=== PATIENT | female | born 1935 | race Caucasian/White ===

== ENCOUNTER 2018-03-01 00:19 | Outpatient (CLI) | payer MEDICARE, MEDICAID, SELFPAY ==
--- NOTE | 2018-03-01 12:00 | DI.CT_ITS ---
SYMPTOMS/DIAGNOSIS: LUNG NODULE, LEFT LOWER, R91.[address]: Comparison is made with CT of the abdomen and pelvis dated August,, which showed an 8 mm nodule in the left lower lobe. Images were performed from the lower neck through the level of the adrenals after IV contrast. There has been no change in two adjacent nodules at the left lateral lower lobe. Together, the measurement is 8 mm. There are other subpleural areas of nodularity, greatest in the upper lobes, which have a somewhat symmetric appearance and likely represent chronic scarring. There is significant underlying central lobular emphysema, greatest in the lung apices. No infiltrate, pleural or pericardial effusion is seen. The heart size is normal. Atherosclerotic changes are seen in the thoracic aorta. Coronary artery calcifications are seen. There is stable post cholecystectomy biliary dilatation. A few splenic granulomas and liver cysts are noted. IMPRESSION: Stable left lower lobe nodules. Significant central lobular emphysema, as well as subpleural scarring, is seen. Follow-up exam could be considered in one year.
[2018-03-01 12:47] LABS: CREATININE 0.69 mg/dL (0.55-1.02)
[2018-03-01] MEDS: Omnipaque 350 MG/ML 100 ML BTL IJ (13:10)
== END 2018-03-01 00:39 ==
PROVIDERS: PCP Nurse Practitioner Family; Visit Provider Nurse Practitioner Family
DX: R91.8 Other nonspecific abnormal finding of lung field (principal); J98.4 Other disorders of lung; J43.9 Emphysema, unspecified; Z13.89 Encounter for screening for other disorder
CPT/HCPCS: 36415; 71260; 82565; J3490

== ENCOUNTER 2018-04-22 09:20 | Emergency (ER) | payer MEDICARE, MEDICAID, SELFPAY ==
[2018-04-22 09:26] VITALS: BP 110/72; PULSE 84; RESP 16; TEMP 36.3; O2SAT 95
--- NOTE | 2018-04-22 09:33 | ED.GENADUL_ITS ---
Discharge Plan Disposition Patient Disposition: HOME Condition: Improving Discharge Details Chief Complaint: Urinary Clinical Impression: Acute cystitis Primary Care Provider: Rosi Russo ED Provider: Ady De Jesus Home Meds and New Rx's Prescriptions: New cephalexin 500 mg capsule 500 mg PO TID 7 Days Qty: 21 RF: 0 Continued incontinence pad, liner, disp [Poise Pads] 1 EACH pad 1 ea Miscellaneous PRN RF: 0 levothyroxine [Synthroid] 100 MCG tablet 100 mcg PO DAILY RF: 0 lorazepam 1 MG tablet 1 mg PO TID RF: 0 Discharge Instructions Instructions: Urinary Tract Infection in Women (ED) Additional Instructions: Home to rest today. Take antibiotics as prescribed for the entire course. Small, frequent sips of fluids to maintain hydration. Continue your regular medications. Follow-up with Rosi Russo if not improved in 5 days time. Return for any acute concern Medical Decision Making 82-year-old female presents from home with days of increased frequency and burning with urination. She is pleasant, well-appearing, no acute distress. Urinalysis consistent with acute cystitis including positive nitrites. I will treat her with a course of Keflex. She is stable for outpatient management and understands return and follow-up precautions. HPI General Mode of arrival: ambulatory . Date/Time Provider Initiated Documentation: 04/22/18 09:21 . Limitations to Documentation: no limitations . Information obtained by: patient . History of Present Illness 82 year old F presents to the emergency department with the chief complaint of Dysuria over days time, described as similar to prior episodes, Quality is described as burning, and is localized to the pelvis. Patient reports no radiation. Patient started experiencing this day(s) and it has been intermittent. No relieving factors improve symptom(s), No exacerbating factors reported . Patient did receive the following treatments prior to arrival, none Related Data Home Medications Medication Instructions Recorded Confirmed levothyroxine [Synthroid] 100 mcg PO DAILY 12/26/12 04/22/18 lorazepam 1 mg PO TID 12/26/12 04/22/18 incontinence pad, liner, disp ea 07/08/16 09/10/17 [Poise Pads] cephalexin 500 mg PO TID 7 Days #21 cap 04/22/18 Previous Rx's Medication Instructions Recorded cephalexin 500 mg PO TID 7 Days #21 cap 04/22/18 Allergies Allergy/AdvReac Type Severity Reaction Status Date / Time azithromycin Allergy Intermediate gets sick Unverified 09/10/17 23:35 meperidine HCl [From Demerol] AdvReac Severe made me Unverified 09/10/17 23:35 very, very sick wheat AdvReac Severe Diarrhea Unverified 09/10/17 23:35 Penicillins AdvReac Mild heart Unverified 09/10/17 23:35 races,rash WHEAT BREAD Allergy Intermediate Uncoded 09/10/17 23:35 General Stated Complaint: Urinary ENRIQUE: 3 Review of Systems Review of Systems 6 systems reviewed and otherwise -. Recovering from recent URI. [facility] Surgical History Cholecystectomy Colonoscopy - [facility] (03/20/16) Family History Father No problems noted. Other Colon cancer Social History Smoking/Tobacco Use Status: Current every day Exam Narrative Exam Narrative: GEN: awake, alert, oriented 3. Pleasant, well groomed, interacti ve. HEAD: Normocephalic, atraumatic ENT: Mucous membranes moist, oropharynx unremarkable, External ear exam unremarkable, and membranes clear bilaterally after hearing aid removed. Partially edentulous EYES: PERRL, EOMI NECK: Full ROM, no JULIO CESAR, no menigismus CHEST/RESP: Nontender, clear to auscultation bilateral, no wheeze/rhonchi/rales CARDIOVASCULAR: RRR, no murmur, rub everett. 2+ Rad pulse bilateral ABDOMEN: Soft, nontender, no mass. +Bowel sounds EXT: Full ROM, no edema, no rash Neuro: Grossly normal neurologic exam, conversant, interactive. Psych: Speech fluent, thoughts congruent, affect normal
[2018-04-22 09:42] LABS: Bilirubin Negative (Negative); Blood Trace-intact (Negative); Clarity Cloudy; Glucose Negative (Negative); Ketones Negative (Negative); Leukocyte Esterase Moderate (Negative); Nitrite Positive (Negative); Specific Gravity 1.015 (1.005-1.025); Urobilinogen 0.2 EU/dL (Up TO 0.2)
[2018-04-22 09:50] LABS: Bacteria Many HPF (Negative); C & S Indicated? Yes; WBC >50 HPF (0-5)
== END 2018-04-22 10:20 | disposition home or self-care (01) ==
PROVIDERS: Emergency Provider Emergency Medicine; PCP Nurse Practitioner Family
DX: N30.00 Acute cystitis without hematuria (principal); B96.20 Unspecified Escherichia coli [E. coli] as the cause of diseases classified elsewhere
CPT/HCPCS: 87077; 99283; 81003; 81015; 87086; 87186

== ENCOUNTER 2018-05-02 00:59 | Outpatient (CLI) | payer MEDICARE, MEDICAID, SELFPAY ==
--- NOTE | 2018-05-02 09:43 | DI.US_ITS ---
SYMPTOM/DIAGNOSIS: AAA, I71.4 ABDOMINAL AORTIC ULTRASOUND: Sonographic evaluation of the abdominal aorta was noted. There is a distal abdominal aortic aneurysm measuring 4.1 cm AP x 4 cm transverse. The right iliac artery measures 1.5 x 1.8 cm. The left iliac artery measures 1.5 x 1.6 cm. IMPRESSION: Distal abdominal aortic aneurysm measuring 4.1 cm in largest AP diameter.
== END 2018-05-02 01:19 ==
PROVIDERS: PCP Nurse Practitioner Family; Visit Provider Nurse Practitioner Family
DX: I71.4 Abdominal aortic aneurysm, without rupture (principal)
CPT/HCPCS: 76775

== ENCOUNTER 2018-05-09 13:32 | Outpatient (REF) | payer MEDICARE, MEDICAID, SELFPAY ==
[2018-05-09 19:30] LABS: Absolute Basophil Count 0.02 k/cumm (0.0-0.2); Absolute Eosinophil Count 0.08 k/cumm (0.0-0.7); Absolute Lymphocyte Count 0.56 k/cumm (1.2-3.4); Absolute Neutrophil Count 2.63 k/cumm (1.2-6.7); Basophils % 0.5; Eosinophils % 2.1; HCT 40.9 % (36.0-46.0); HGB 13.6 g/dL (12.0-15.5); Lymphocytes % 14.4; Mean Corp. HGB Concentration 33.3 g/dL (32.0-36.0); Mean Corpuscular Hemoglobin 30.4 pg (27.0-33.0); Mean Corpuscular Volume 91.3 fL (80-95); Mean Platelet Volume 10.6 fL (8.0-11.0); Monocytes % 15.4; Neutrophils % 67.6; Platelet Count 129 x1000/uL (130-400); RBC 4.48 m/cumm (4.00-5.20); RBC Distribution Width 14.7 % (11.7-14.6); White Blood Cell Count 3.89 k/cumm (4.4-10.8)
[2018-05-09 20:07] LABS: ALT 28 U/L (12-78); AST 30 U/L (15-37); Albumin 3.3 g/dL (3.4-5.0); Alkaline Phosphatase 99 U/L (46-116); Anion Gap 4.1 mmol/L (3-11); BUN 14 mg/dL (7-18); Bilirubin, Total 0.4 mg/dL (0.2-1.0); C-Reactive Protein 0.48 mg/dL (0.0-0.3); CO2 33.9 mmol/L (21.0-32.0); CREATININE 0.79 mg/dL (0.55-1.02); Calcium 8.6 mg/dL (8.5-10.1); Chloride 105 mmol/L (98-107); Glucose 113 mg/dL (70-100); Sodium 143 mmol/L (136-145); TSH (W/Ref FT4) 0.84 uIU/mL (0.358-3.74); Total Protein 6.1 g/dL (6.4-8.2)
[2018-05-09 20:57] LABS: ESR 8 MM/HR (0-30)
[2018-05-11 11:40] LABS: HIV-1/2 Ag & Ab Screen Negative (NEGAT); Hepatitis C Ab w Rflx HCV PCR Negative (NEGAT)
== END 2018-05-09 13:52 ==
LOC: NCHCN 13:32
PROVIDERS: PCP Nurse Practitioner Family; Visit Provider Nurse Practitioner Family
DX: R63.4 Abnormal weight loss (principal); Z11.59 Encounter for screening for other viral diseases; Z11.4 Encounter for screening for human immunodeficiency virus [HIV]; E03.9 Hypothyroidism, unspecified
CPT/HCPCS: 80053; 85652; 86803; 87389; 84443; 85025; 86140

== ENCOUNTER 2018-05-13 00:37 | Outpatient (CLI) | payer MEDICARE, MEDICAID, SELFPAY ==
--- NOTE | 2018-05-13 10:05 | DI.RAD_ITS ---
SYMPTOMS/DIAGNOSIS: NECK PAIN, S/P FALL, M54.2 CERVICAL SPINE: Six views were obtained. The prevertebral soft tissues appear intact. The intervertebral disc spaces appear fairly well maintained except for slight narrowing at C 5 - 6. Mild hypertrophic degenerative changes are noted. There is possible left sided neural foraminal narrowing at C 4 - 5. Right sided neural foramina appear well maintained as visualized. CONCLUSION: Degenerative changes of the cervical spine. No evidence of acute injury.
== END 2018-05-13 00:57 ==
PROVIDERS: PCP Nurse Practitioner Family; Visit Provider Nurse Practitioner Family
DX: M54.2 Cervicalgia (principal); M47.812 Spondylosis without myelopathy or radiculopathy, cervical region
CPT/HCPCS: 72050

== ENCOUNTER 2018-06-18 09:19 | Outpatient (CLI) | payer MEDICARE, MEDICAID, SELFPAY ==
[2018-06-18 11:30] LABS: Abs Immature Grans 0.01 k/cumm (0.0-0.09); Absolute Basophil Count 0.01 k/cumm (0.0-0.2); Absolute Lymphocyte Count 0.88 k/cumm (1.2-3.4); Absolute Monocyte Count 0.68 k/cumm (0.11-0.7); Absolute Neutrophil Count 3.49 k/cumm (1.2-6.7); Basophils % 0.2; Eosinophils % 1.9; HCT 42.2 % (36.0-46.0); HGB 14.3 g/dL (12.0-15.5); Immature Grans % 0.2; Mean Corp. HGB Concentration 33.9 g/dL (32.0-36.0); Mean Corpuscular Hemoglobin 31.4 pg (27.0-33.0); Mean Corpuscular Volume 92.5 fL (80-95); Mean Platelet Volume 10.1 fL (8.0-11.0); Monocytes % 13.2; Neutrophils % 67.5; Platelet Count 140 x1000/uL (130-400); RBC 4.56 m/cumm (4.00-5.20); RBC Distribution Width 14.7 % (11.7-14.6); White Blood Cell Count 5.17 k/cumm (4.4-10.8)
== END 2018-06-18 09:39 ==
PROVIDERS: Family Medicine; PCP Nurse Practitioner Family; Visit Provider Nurse Practitioner Family
DX: R23.8 Other skin changes (principal)
CPT/HCPCS: 36415; 85025

== ENCOUNTER 2018-07-06 11:56 | Outpatient (CLI) | payer MEDICARE, MEDICAID, SELFPAY ==
[2018-07-06 11:59] VITALS: PULSE 72; RESP 20; TEMP 36.7; O2SAT 96
--- NOTE | 2018-07-06 12:43 | DI.RAD_ITS ---
SYMPTOMS/DIAGNOSIS: SACROILIAC JOINT DYSFUNCTION PAIN CLINIC SACROILIAC: Fluoroscopy Time: 49.7 sec, 8.60 mGy. Images from the Pain Clinic demonstrate right and left sacroiliac joint needle placement in conjunction with injections carried out by Dr. Hamilton. Please see the procedure report for further information.
--- NOTE | 2018-07-06 12:53 | PDOC.PAIN_ITS ---
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 COMMENTS: He will need to bilateral sacroiliac joint dysfunction. Good results from injections last year. Lasted approximately 1 year. Patient was interviewed and the medical record reviewed. There were no medical, pharmacologic, radiographic or other structural contraindications to attempting fluoroscopically guided intra-articular SI joint injection. Risks and expected side effects as well as potential benefit of the procedure were reviewed and voiced concerns addressed. The printed consent form was signed and witnessed. Standard time-out procedure was performed. Patient was placed in the prone position on the fluoroscopy table and automated blood pressure cuff and pulse oximeter applied. The skin entry point for approaching {bilateral} SI joints was identified under the most advantageous fluoroscopic view and marked. Following thorough Chlorhexadine preparation of the skin and draping and 1% lidocaine infiltration of the skin entry point and subcutaneous tissues, a 22 gauge spinal needle was placed under fluoroscopic guidance into {bilateral} SI joints was identified under the most advantageous fluoroscopic view and marked. Following thorough Chlorhexadine preparation of the skin and draping and 1% lidocaine infiltration of the skin entry point and subcutaneous tissues, a 22 gauge spinal needle was placed under fluoroscopic guidance into { bilateral: } SI joint. Intra-articular placement was confirmed by a clear arthrogram resulting from the injection of 0.25ml Omnipaque 240, 1ml 0.5% bupivacaine, and half ml (40mg) of 80mg concentration Depomedrol were injected intra-articularily with an initial reproduction of a significant component of the usual pain. Vital signs were stable throughout the procedure and were as recorded in the docflowsheet by the nursing staff. If given, dosages of intravenous drugs for anxiolysis and analgesia were documented in MAR. Follow up plans and appointments were discussed with the patient. Post procedure instruction was given as documented in nursing documentation and having met discharge criteria, and was discharged from the [facility]. COMMENTS: Pain went from 8-0. She will follow-up as needed. CC: Rosi Russo
[2018-07-06 12:57] VITALS: BP 131/80; PULSE 78; RESP 19; O2SAT 96
[2018-07-06] MEDS: Omnipaque 240 MG/ML 50 ML BTL IJ (13:00)
[2018-07-06] MEDS: Bupivacaine 0.5% Pres-Free 10 ML VIAL IJ (13:00)
[2018-07-06] MEDS: methylPREDNISolone ACETATE 80 MG/ML VIAL IJ (13:01)
== END 2018-07-06 12:16 ==
PROVIDERS: PCP Nurse Practitioner Family; Visit Provider Anesthesiology Pain Medicine
DX: M53.3 Sacrococcygeal disorders, not elsewhere classified (principal)
CPT/HCPCS: 27096 ×2; 72200; J1040; Q9967

== ENCOUNTER 2018-07-13 15:57 | Outpatient (REF) | payer MEDICARE, MEDICAID, SELFPAY ==
[2018-07-14 10:25] LABS: TSH (W/Ref FT4) 0.89 uIU/mL (0.358-3.74)
== END 2018-07-13 16:17 ==
LOC: NCHCN 15:57
PROVIDERS: PCP Nurse Practitioner Family; Visit Provider Nurse Practitioner Family
DX: E03.9 Hypothyroidism, unspecified (principal)
CPT/HCPCS: 84443

== ENCOUNTER 2018-08-16 09:13 | Emergency (ER) | payer MEDICARE, MEDICAID, SELFPAY ==
--- NOTE | 2018-08-16 09:16 | W.ED.GENAD ---
Discharge Plan Disposition Patient Disposition: HOME Condition: Fair Discharge Details Chief Complaint: Urinary Clinical Impression: UTI (urinary tract infection) Primary Care Provider: Oj Blakely ED Provider: Arlene Turner Home Meds and New Rx's Prescriptions: New cephalexin [Keflex] 500 mg capsule 500 mg PO BID Qty: 10 RF: 0 Continued clobetasol 0.05 % cream 1 applic TP DAILY PRNRF: 0 betamethasone dipropionate 0.05 % cream 1 applic TP BID RF: 0 Restasis MultiDose 0.05 % drops 1 drp OP Q12H RF: 0 hydrocortisone 2.5 % cream 1 applic TP BID PRNRF: 0 Narcan 4 mg/actuation spray,non-aerosol 1 spray NUSRAT ONCE PRNRF: 0 cetirizine [All Day Allergy (cetirizine)] 10 mg tablet 20 mg PO DAILY RF: 0 atorvastatin 10 mg tablet 10 mg PO QHS RF: 0 Poise Pads 1 EACH pad 1 ea Miscellaneous PRN RF: 0 levothyroxine [Synthroid] 100 MCG tablet 100 mcg PO DAILY RF: 0 lorazepam 1 MG tablet 1 mg PO TID RF: 0 Discharge Instructions Instructions: Urinary Tract Infection in Women (ED) Additional Instructions: Encourage hydration. Please take antibiotics as prescribed. Even if symptoms improve, please take the entire course. Please follow-up with primary care to discuss recurrent urinary tract infections. If you develop new or worsening symptoms please seek care urgently once again. Referrals: Oj Blakely, CENTRAL OFFICE INSPECTOR [Primary Care Provider] - Discharge Data Discharge Date/Time-TO BE ENTERED AT DEPARTURE: 08/16/18 10:06 Medical Decision Making Patient is a 82-year-old female presenting today with concern for urinary tract infection. She reports symptoms began approximate 4 days ago. Is endorsing dysuria, increased frequency and urgency. States that she has had 2 urinary tract infections the last calendar year. Was last treated in April. Reviewed culture, her previous urine was resistant to Bactrim. She tolerated Keflex well. Patient is allergic to azithromycin and penicillins. Patient appears nontoxic, no CVA tenderness. No abdominal pain. Patient is afebrile. Urinalysis consistent for urinary tract infection. Plan to treat with Keflex. Discussed new/worsening symptoms when to seek care urgently once again. She will discuss her recurrent urinary tract infections further with her primary care. She is given return precautions. All of her questions and concerns were addressed and she is in agreement this plan. HPI General Mode of arrival: ambulatory. Date/Time Provider Initiated Documentation: 08/16/18 09:16. Limitations to Documentation: no limitations. Information obtained by: patient and RN notes reviewed. History of Present Illness 82 year old F presents to the emergency department with the chief complaint of dysurea, described as moderate, Quality is described as burning (with urination), and is localized to the abdomen. Patient reports no radiation. Patient started experiencing this day(s) (4) and it has been constant. No relieving factors improve symptom(s), No exacerbating factors reported . Patient notes no other symptoms.; denies chest pain, fever/chills, headaches, loss of appetite, nausea/vomiting, rash, shortness of breath and weakness. Patient did receive the following treatments prior to arrival, none Related Data Home Medications Medication Instructions Recorded Confirmed levothyroxine [Synthroid] 100 mcg PO DAILY 12/26/12 08/16/18 lorazepam 1 mg PO TID 12/26/12 08/16/18 Poise Pads ea 07/08/16 05/31/18 atorvastatin 10 mg tablet 10 mg PO QHS 05/31/18 08/16/18 betamethasone dipropionate 0.05 % 1 applic TP BID 05/31/18 08/16/18 topical cream cetirizine 10 mg tablet 20 mg PO DAILY tab 05/31/18 08/16/18 clobetasol 0.05 % topical cream 1 applic TP DAILY PRN 05/31/18 08/16/18 cyclosporine 0.05 % eye drops 1 drp OP Q12H 05/31/18 08/16/18 hydrocortisone 2.5 % topical cream 1 applic TP BID PRN 05/31/18 08/16/18 naloxone 4 mg/actuation nasal spray 1 spray NUSRAT ONCE PRN 05/31/18 07/06/18 cephalexin [Keflex] 500 mg PO BID #10 cap 08/16/18 Previous Rx's Medication Instructions Recorded cephalexin [Keflex] 500 mg PO BID #10 cap 08/16/18 Allergies Allergy/AdvReac Type Severity Reaction Status Date / Time meperidine HCl [From Demerol] AdvReac Severe made me Unverified 08/16/18 09:27 very, very sick wheat AdvReac Severe Diarrhea Unverified 08/16/18 09:27 azithromycin AdvReac Intermediate gets sick Unverified 08/16/18 09:27 Penicillins AdvReac Mild heart Unverified 08/16/18 09:27 races,rash WHEAT BREAD Allergy Intermediate Uncoded 08/16/18 09:27 General ENRIQUE: 3 Review of Systems Constitutional Reports as per HPI, Denies chills, Denies fever(s) and Denies poor appetite Cardiovascular Denies chest pain Respiratory Denies cough Gastrointestinal Denies abdominal pain, Denies change in bowel habits, Denies nausea and Denies vomiting Genitourinary Reports as per HPI Musculoskeletal Reports as per HPI and Denies back pain Integumentary/Breasts Reports as per HPI and Denies rash [facility] Medical History AAA (abdominal aortic aneurysm) (Acute) Abnormal mammogram of right breast (Acute) Adenomatous colon polyp (Acute) Celiac disease (Acute) Diverticulosis (Acute) Dizziness (Acute) Elevated LFTs (Acute) Knee pain, left (Acute) Onychomycosis (Acute) Right bundle branch block (Acute) Skin rash (Acute) Spinal stenosis (Acute) Tobacco use (Acute) Trigger thumb, left thumb (Acute) Uterine fibroid (Acute) Weight loss, abnormal (Acute) Allergic rhinitis (Chronic) Anxiety (Chronic) CAD (coronary artery disease) (Chronic) Chronic leukopenia (Chronic) Hearing deficit (Chronic) Hiatal hernia (Chronic) Hypothyroid (Chronic) Low back pain (Chronic) Lung nodule (Chronic) Lupus erythematosus (Chronic) Neck pain (Chronic) Osteoporosis (Chronic) Panic disorder (Chronic) Syncope (Chronic) Urinary incontinence (Chronic) Vitamin D deficiency (Chronic) Surgical History Cholecystectomy Colonoscopy - [facility] (03/20/16) Social History Smoking/Tobacco Use Status: Current every day Tobacco Type: cigarettes Alcohol Intake: never Drug use: Never Do you feel safe at home: Yes Do you feel safe in your relationship?: Yes Exam Const General: cooperative, healthy appearing, comfortable, no acute distress, well developed and well groomed Nutritional Appearance: well nourished and thin Orientation: alert and awake Resp Effort & Inspection: normal respiratory effort and no respiratory distress Auscultation: clear to auscultation bilaterally, no rales, no rhonchi and no wheezes Cardio Rate: regular rate Rhythm: regular rhythm Heart Sounds: S1 normal and S2 normal GI Inspection: normal to inspection Palpation: soft, no hepatosplenomegaly, aortic enlargement (known aortic aneurysm), not firm, no guarding, not rigid and nontender Back/Spine/Pelvis Back: no CVA tenderness Skin General skin exam: no rashes or lesions noted Trauma: no lacerations or abrasions Neuro General: alert and awake Cognition: normal cognition Speech: speech normal Gait: normal gait Psych Appearance: grossly normal and well kempt Mental Status: mental status grossly normal Speech and Movement: speech and movement normal
--- NOTE | 2018-08-16 09:23 | NUR.NOTE ---
pt believes that she has a UTI. pt states that burning and frequency has been present for the past 4 days
[2018-08-16 09:24] VITALS: BP 129/66; PULSE 64; RESP 18; TEMP 36.5; O2SAT 94
[2018-08-16 09:41] LABS: Bilirubin Negative (Negative); Blood Negative (Negative); Clarity Sl Cloudy; Glucose Negative (Negative); Ketones Negative (Negative); Leukocyte Esterase Moderate (Negative); Nitrite Negative (Negative); Urobilinogen 0.2 EU/dL (Up TO 0.2)
[2018-08-16 09:50] LABS: Epithelial Cells Rare HPF (Negative); Other Cells Few Renal (Negative); WBC >50 HPF (0-5)
[2018-08-16 09:51] LABS: Bacteria Many HPF (Negative); C & S Indicated? Yes
--- NOTE | 2018-08-16 09:53 | ED.GENADUL_ITS ---
Discharge Plan Disposition Patient Disposition: HOME Condition: Fair Discharge Details Chief Complaint: Urinary Clinical Impression: UTI (urinary tract infection) Primary Care Provider: Oj Blakely ED Provider: Arlene Turner Home Meds and New Rx's Prescriptions: New cephalexin [Keflex] 500 mg capsule 500 mg PO BID Qty: 10 RF: 0 Continued clobetasol 0.05 % cream 1 applic TP DAILY PRNRF: 0 betamethasone dipropionate 0.05 % cream 1 applic TP BID RF: 0 Restasis MultiDose 0.05 % drops 1 drp OP Q12H RF: 0 hydrocortisone 2.5 % cream 1 applic TP BID PRNRF: 0 Narcan 4 mg/actuation spray,non-aerosol 1 spray NUSRAT ONCE PRNRF: 0 cetirizine [All Day Allergy (cetirizine)] 10 mg tablet 20 mg PO DAILY RF: 0 atorvastatin 10 mg tablet 10 mg PO QHS RF: 0 Poise Pads 1 EACH pad 1 ea Miscellaneous PRN RF: 0 levothyroxine [Synthroid] 100 MCG tablet 100 mcg PO DAILY RF: 0 lorazepam 1 MG tablet 1 mg PO TID RF: 0 Discharge Instructions Instructions: Urinary Tract Infection in Women (ED) Additional Instructions: Encourage hydration. Please take antibiotics as prescribed. Even if symptoms improve, please take the entire course. Please follow-up with primary care to discuss recurrent urinary tract infections. If you develop new or worsening symptoms please seek care urgently once again. Referrals: Oj Blakely, ADHESIVE PRIMER [Primary Care Provider] - Discharge Data Discharge Date/Time-TO BE ENTERED AT DEPARTURE: 08/16/18 10:06 Medical Decision Making Patient is a 82-year-old female presenting today with concern for urinary tract infection. She reports symptoms began approximate 4 days ago. Is endorsing dysuria, increased frequency and urgency. States that she has had 2 urinary tract infections the last calendar year. Was last treated in April. Reviewed culture, her previous urine was resistant to Bactrim. She tolerated Keflex well. Patient is allergic to azithromycin and penicillins. Patient appears nontoxic, no CVA tenderness. No abdominal pain. Patient is afebrile. Urinalysis consistent for urinary tract infection. Plan to treat with Keflex. Discussed new/worsening symptoms when to seek care urgently once again. She will discuss her recurrent urinary tract infections further with her primary care. She is given return precautions. All of her questions and concerns were addressed and she is in agreement this plan. HPI General Mode of arrival: ambulatory . Date/Time Provider Initiated Documentation: 08/16/18 09:16 . Limitations to Documentation: no limitations . Information obtained by: patient and RN notes reviewed . History of Present Illness 82 year old F presents to the emergency department with the chief complaint of dysurea, described as moderate, Quality is described as burning (with urination), and is localized to the abdomen. Patient reports no radiation. Patient started experiencing this day(s) (4) and it has been constant. No relieving factors improve symptom(s), No exacerbating factors reported . Patient notes no other symptoms.; denies chest pain, fever/chills, headaches, loss of appetite, nausea/vomiting, rash, shortness of breath and weakness. Patient did receive the following treatments prior to arrival, none Related Data Home Medications Medication Instructions Recorded Confirmed levothyroxine [Synthroid] 100 mcg PO DAILY 12/26/12 08/16/18 lorazepam 1 mg PO TID 12/26/12 08/16/18 Poise Pads ea 07/08/16 05/31/18 atorvastatin 10 mg tablet 10 mg PO QHS 05/31/18 08/16/18 betamethasone dipropionate 0.05 % 1 applic TP BID 05/31/18 08/16/18 topical cream cetirizine 10 mg tablet 20 mg PO DAILY tab 05/31/18 08/16/18 clobetasol 0.05 % topical cream 1 applic TP DAILY PRN 05/31/18 08/16/18 cyclosporine 0.05 % eye drops 1 drp OP Q12H 05/31/18 08/16/18 hydrocortisone 2.5 % topical cream 1 applic TP BID PRN 05/31/18 08/16/18 naloxone 4 mg/actuation nasal spray 1 spray NUSRAT ONCE PRN 05/31/18 07/06/18 cephalexin [Keflex] 500 mg PO BID #10 cap 08/16/18 Previous Rx's Medication Instructions Recorded cephalexin [Keflex] 500 mg PO BID #10 cap 08/16/18 Allergies Allergy/AdvReac Type Severity Reaction Status Date / Time meperidine HCl [From Demerol] AdvReac Severe made me Unverified 08/16/18 09:27 very, very sick wheat AdvReac Severe Diarrhea Unverified 08/16/18 09:27 azithromycin AdvReac Intermediate gets sick Unverified 08/16/18 09:27 Penicillins AdvReac Mild heart Unverified 08/16/18 09:27 races,rash WHEAT BREAD Allergy Intermediate Uncoded 08/16/18 09:27 General ENRIQUE: 3 Review of Systems Constitutional Reports as per HPI, Denies chills, Denies fever(s) and Denies poor appetite Cardiovascular Denies chest pain Respiratory Denies cough Gastrointestinal Denies abdominal pain, Denies change in bowel habits, Denies nausea and Denies vomiting Genitourinary Reports as per HPI Musculoskeletal Reports as per HPI and Denies back pain Integumentary/Breasts Reports as per HPI and Denies rash [facility] Medical History AAA (abdominal aortic aneurysm) (Acute) Abnormal mammogram of right breast (Acute) Adenomatous colon polyp (Acute) Celiac disease (Acute) Diverticulosis (Acute) Dizziness (Acute) Elevated LFTs (Acute) Knee pain, left (Acute) Onychomycosis (Acute) Right bundle branch block (Acute) Skin rash (Acute) Spinal stenosis (Acute) Tobacco use (Acute) Trigger thumb, left thumb (Acute) Uterine fibroid (Acute) Weight loss, abnormal (Acute) Allergic rhinitis (Chronic) Anxiety (Chronic) CAD (coronary artery disease) (Chronic) Chronic leukopenia (Chronic) Hearing deficit (Chronic) Hiatal hernia (Chronic) Hypothyroid (Chronic) Low back pain (Chronic) Lung nodule (Chronic) Lupus erythematosus (Chronic) Neck pain (Chronic) Osteoporosis (Chronic) Panic disorder (Chronic) Syncope (Chronic) Urinary incontinence (Chronic) Vitamin D deficiency (Chronic) Surgical History Cholecystectomy Colonoscopy - [facility] (03/20/16) Social History Smoking/Tobacco Use Status: Current every day Tobacco Type: cigarettes Alcohol Intake: never Drug use: Never Do you feel safe at home: Yes Do you feel safe in your relationship?: Yes Exam Const General: cooperative, healthy appearing, comfortable, no acute distress, well developed and well groomed Nutritional Appearance: well nourished and thin Orientation: alert and awake Resp Effort & Inspection: normal respiratory effort and no respiratory distress Auscultation: clear to auscultation bilaterally, no rales, no rhonchi and no wheezes Cardio Rate: regular rate Rhythm: regular rhythm Heart Sounds: S1 normal and S2 normal GI Inspection: normal to inspection Palpation: soft, no hepatosplenomegaly, aortic enlargement (known aortic aneurys m), not firm, no guarding, not rigid and nontender Back/Spine/Pelvis Back: no CVA tenderness Skin General skin exam: no rashes or lesions noted Trauma: no lacerations or abrasions Neuro General: alert and awake Cognition: normal cognition Speech: speech normal Gait: normal gait Psych Appearance: grossly normal and well kempt Mental Status: mental status grossly normal Speech and Movement: speech and movement normal
[2018-08-16 10:05] VITALS: BP 129/66; PULSE 64; RESP 18; TEMP 36.5; O2SAT 94
== END 2018-08-16 10:06 | disposition home or self-care (01) ==
PROVIDERS: Emergency Provider Physician Assistant; PCP Nurse Practitioner Family
DX: N39.0 Urinary tract infection, site not specified (principal); B96.20 Unspecified Escherichia coli [E. coli] as the cause of diseases classified elsewhere; Z87.440 Personal history of urinary (tract) infections
CPT/HCPCS: 87077; 99283; 81003; 81015; 87086; 87186; 99284

== ENCOUNTER 2018-08-30 15:44 | Outpatient (REF) | payer MEDICARE, MEDICAID, SELFPAY | END 2018-08-30 16:04 | LOC: NCHCN 15:44 | PROVIDERS: PCP Nurse Practitioner Family; Visit Provider Nurse Practitioner Family | DX: R35.8 Other polyuria (principal) | CPT/HCPCS: 87086 ==

== ENCOUNTER 2018-09-15 12:05 | Emergency (ER) | payer MEDICARE, MEDICAID, SELFPAY ==
[2018-09-15 12:19] VITALS: BP 134/72; PULSE 76; RESP 14; TEMP 36.5; O2SAT 92
--- NOTE | 2018-09-15 12:25 | DI.RAD_ITS ---
SYMPTOM/DIAGNOSIS: COUGH, ? PNEUMONIA PA AND LATERAL CHEST: There is marked pulmonary hyperinflation consistent with COPD. Mild fibrotic changes appear to be present diffusely. No focal consolidation. No pleural effusion. Cardiac size is within normal limits. CONCLUSION: COPD, no evidence of acute change.
--- NOTE | 2018-09-15 12:28 | W.ED.GENAD ---
Discharge Plan Disposition Patient Disposition: HOME Condition: Good Discharge Details Chief Complaint: RespSymp Clinical Impression: Sinusitis, Cough Primary Care Provider: Oj Blakely ED Provider: Leroy Mayorga Home Meds and New Rx's Prescriptions: New amoxicillin-pot clavulanate [Augmentin] 875-125 mg tablet 1 tab PO BID Qty: 20 RF: 0 fluticasone propionate [Flonase Allergy Relief] 50 mcg/actuation spray,suspension 1 spray NUSRAT DAILY Qty: 9.9 RF: 0 No Action clobetasol 0.05 % cream 1 applic TP DAILY PRNRF: 0 betamethasone dipropionate 0.05 % cream 1 applic TP BID RF: 0 Restasis MultiDose 0.05 % drops 1 drp OP Q12H RF: 0 hydrocortisone 2.5 % cream 1 applic TP BID PRNRF: 0 Narcan 4 mg/actuation spray,non-aerosol 1 spray NUSRAT ONCE PRNRF: 0 cetirizine [All Day Allergy (cetirizine)] 10 mg tablet 20 mg PO DAILY RF: 0 atorvastatin 10 mg tablet 10 mg PO QHS RF: 0 Poise Pads 1 EACH pad 1 ea Miscellaneous PRN RF: 0 levothyroxine [Synthroid] 100 MCG tablet 100 mcg PO DAILY RF: 0 lorazepam 1 MG tablet 1 mg PO TID RF: 0 cephalexin [Keflex] 500 mg capsule 500 mg PO BID Qty: 10 RF: 0 Discharge Instructions Instructions: Sinusitis (ED) Additional Instructions: Your chest x-ray is negative for any evidence of pneumonia. Am concerned that you have sinusitis. Please take the inhaler, 2 puffs every 6 hours for the next 48 to 72 hours. Please take the antibiotic as directed. If you notice any worsening of your symptoms, or any new symptoms such as vomiting, diarrhea, fever, chills, shortness of breath, chest pain, numbness, weakness, or fainting , please return immediately to the emergency department for reevaluation. Please follow up with your primary care provider as soon as possible for reassessment and reevaluation. As always, it was a pleasure participating in your medical care today. Referrals: Oj Blakely, AERONAUTICAL RESEARCH ENGINEER [Primary Care Provider] - Medical Decision Making This is a pleasant 82-year-old female who presents today for nasal congestion for the last week and a half with a mild cough. She denies any history of COPD. She does have a history of cardiac disease, lupus, AAA. She denies any significant shortness of breath, chest pain or abdominal pain. Physical exam demonstrates mild tenderness over the frontal sinuses. Mild cobblestoning in the posterior oropharynx. No evidence of clinical meningitis. Lung sounds are clear. Oxygen saturation is 92 to 94% on room air. We will get a chest x-ray to rule out acute pneumonia, however I do feel this less likely. Signs and symptoms appear consistent with a mild URI versus sinusitis 1:51 PM Chest x-ray negative for any pneumonia or infiltrate. There is evidence of COPD. I do feel that she would benefit from an inhaler at home. We will give Augmentin for her sinusitis, as well as Flonase to help with the drainage. Local resistant patterns do recommend amoxicillin and Augmentin at this time for both respiratory disease and sinusitis. I have extensively reviewed the treatment plan and discharge instructions with the patient and their family. I have addressed all patient concerns at this time. The patient and family was made aware of what symptoms to monitor for that would warrant a return to the emergency department. Discussed the plan with the patient and family, they demonstrate verbal understanding and agreement with our assessment and plan at this time. PA AND LATERAL CHEST: There is marked pulmonary hyperinflation consistent with COPD. Mild fibrotic changes appear to be present diffusely. No focal consolidation. No pleural effusion. Cardiac size is within normal limits. CONCLUSION: COPD, no evidence of acute change. Ordered By: Leroy Mayorga DO CC: [facility] General Date/Time Provider Initiated Documentation: 09/15/18 12:15. [facility] Narrative: This is an 82-year-old female with a past medical history of high cholesterol, thyroid disease, lupus, AAA, who presents today for evaluation of upper sinus congestion with mild cough. Duration of symptoms have been 1.5 weeks with sinus congestion, and just a day or 2 for the cough. She denies chest pain, shortness of breath. She denies any fever or chills. She admits to notable postnasal drip. She denies any significant productivity to her cough. She denies any recent antibiotics, she does admit to mild pressure in her frontal sinuses, but denies any significant headache otherwise. She has no other complaints or modifying factors. Related Data Home Medications Medication Instructions Recorded Confirmed levothyroxine [Synthroid] 100 mcg PO DAILY 12/26/12 08/16/18 lorazepam 1 mg PO TID 12/26/12 08/16/18 Poise Pads ea 07/08/16 05/31/18 atorvastatin 10 mg tablet 10 mg PO QHS 05/31/18 08/16/18 betamethasone dipropionate 0.05 % 1 applic TP BID 05/31/18 08/16/18 topical cream cetirizine 10 mg tablet 20 mg PO DAILY tab 05/31/18 08/16/18 clobetasol 0.05 % topical cream 1 applic TP DAILY PRN 05/31/18 08/16/18 cyclosporine 0.05 % eye drops 1 drp OP Q12H 05/31/18 08/16/18 hydrocortisone 2.5 % topical cream 1 applic TP BID PRN 05/31/18 08/16/18 naloxone 4 mg/actuation nasal spray 1 spray NUSRAT ONCE PRN 05/31/18 07/06/18 cephalexin [Keflex] 500 mg PO BID #10 cap 08/16/18 amoxicillin-pot clavulanate 1 tab PO BID #20 tab 09/15/18 [Augmentin] fluticasone propionate [Flonase 1 spray NUSRAT DAILY #9.9 gm 09/15/18 Allergy Relief] Previous Rx's Medication Instructions Recorded cephalexin [Keflex] 500 mg PO BID #10 cap 08/16/18 amoxicillin-pot clavulanate 1 tab PO BID #20 tab 09/15/18 [Augmentin] fluticasone propionate [Flonase 1 spray NUSRAT DAILY #9.9 gm 09/15/18 Allergy Relief] Allergies Allergy/AdvReac Type Severity Reaction Status Date / Time meperidine HCl [From Demerol] AdvReac Severe made me Unverified 09/15/18 12:24 very, very sick wheat AdvReac Severe Diarrhea Unverified 09/15/18 12:24 azithromycin AdvReac Intermediate gets sick Unverified 09/15/18 12:24 Penicillins AdvReac Mild heart Unverified 09/15/18 12:24 races,rash WHEAT BREAD Allergy Intermediate Uncoded 09/15/18 12:24 General Stated Complaint: RespSymp ENRIQUE: 4 Review of Systems Review of Systems All systems reviewed & are unremarkable except as noted in HPI and below PFSH Social History Smoking/Tobacco Use Status: Current every day Tobacco Type: cigarettes Alcohol Intake: never Drug use: Never Do you feel safe at home: Yes Do you feel safe in your relationship?: Yes Exam Narrative Exam Narrative: 1.Const: Well-nourished, Well-developed, appearing stated age 2.Eyes: PERRL, no conjunctival injection, and symmetrical lids. 3.ENT: Atraumatic external nose and ears. Moist MM. Neck: Symmetric, trachea midline, No thyromegaly. Mild tenderness on palpation of the frontal sinuses. Mild cobblestoning the posterior oropharynx. No significant nasal discharge. Patient demonstrates good movement of cervical neck. There is no nuchal rigidity, no nuchal tenderness. Patient is able to flex the neck without any difficulty or significant pain. Negative Kernig's and Brudzinski sign. 4.CVS: +S1/S2, No murmurs or gallops. Peripheral pulses 2+ and equal in all extremities. Brisk capillary refill in all extremities. 5.RESP: Unlabored respiratory effort. Clear to auscultation bilaterally. No wheezes rales or rhonchi 6.GI: Soft, Nontender/Nondistended, No hepatosplenomegaly. No guarding or rebound. 7.MSK: Normocephalic/Atraumatic, Extremities w/o deformity or ttp No cyanosis or clubbing, Normal movement of all extremities 8.Skin: Warm, Dry. No rashes or lesions. 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 Sensation grossly intact, no focal neurologic deficits. 10.Psych: (AAO) x3. Appropriate mood and affect Course Vital Signs Temperature 36.5 C 09/15/18 12:19 Pulse 76 09/15/18 12:19 Respiratory Rate 14 09/15/18 12:19 Blood Pressure 134/72 09/15/18 12:19 Pulse Oximetry 92 L 09/15/18 12:19 Temperature 36.5 C 09/15/18 12:19 Temperature Source Temporal Artery Scan 09/15/18 12:19 Pulse 76 09/15/18 12:19 Respiratory Rate 14 09/15/18 12:19 Respiratory Effort 09/15/18 12:22 Blood Pressure 134/72 09/15/18 12:19 Blood Pressure Position Sitting 09/15/18 12:19 Pulse Oximetry 92 L 09/15/18 12:19 Oxygen Delivery Method Room Air 09/15/18 12:19 Oxygen Flow Rate 0 09/15/18 12:19
[2018-09-15 12:50] VITALS: RESP 14; RESP 4; RESP 8; O2SAT 92
[2018-09-15] MEDS: Albuterol/Ipratropium 3 ML UPD VIAL UPD (12:50)
== END 2018-09-15 14:04 | disposition home or self-care (01) ==
PROVIDERS: Emergency Provider Student in an Organized Health Care Education/Training Program; PCP Nurse Practitioner Family
DX: J01.90 Acute sinusitis, unspecified (principal); R05 Cough; J44.9 Chronic obstructive pulmonary disease, unspecified; Z88.0 Allergy status to penicillin; F17.210 Nicotine dependence, cigarettes, uncomplicated
CPT/HCPCS: 94640; 99283; 71046; J7620

== ENCOUNTER 2018-11-10 01:20 | Outpatient (CLI) | payer MEDICARE, MEDICAID, SELFPAY ==
--- NOTE | 2018-11-10 15:30 | DI.MAMMO_ITS ---
SYMPTOM/DIAGNOSIS: SCREENING Z12.31. PREVENTIVE Z00.00 MAMMOGRAMS: Mammograms were interpreted according to the usual protocol including computer analysis with CAD system, tomosynthesis and C view imaging. Comparison with prior examinations. Breast density category B. No suspicious masses or microcalcifications are seen. There has been no significant change in the appearance of the mammogram compared to the prior examination. IMPRESSION: No evidence for malignancy. Yearly mammography is recommended. Category 1, breast density category B. SA ASSESSMENT OF FINDINGS: Negative. Category 1. Patient will receive a letter notifying them of these results. BI-RADS category B. There are scattered areas of fibroglandular density.
== END 2018-11-10 01:40 ==
PROVIDERS: PCP Nurse Practitioner Family; Visit Provider Nurse Practitioner Family
DX: Z12.31 Encounter for screening mammogram for malignant neoplasm of breast (principal)
CPT/HCPCS: 77063; 77067

== ENCOUNTER 2019-03-28 12:51 | Outpatient (CLI) | payer MEDICARE, MEDICAID, SELFPAY ==
[2019-03-28 12:59] VITALS: BP 144/76; PULSE 69; RESP 16; TEMP 36
[2019-03-28 13:34] VITALS: BP 141/79; PULSE 68; RESP 17; O2SAT 98
--- NOTE | 2019-03-28 13:41 | PDOC.PAIN_ITS ---
Pain Clinic Procedure Note Procedure Note Procedure Note: INTRA-ARTICULAR SI JOINT INJECTION BELLE WILLS has been referred to the [facility] for intra- articular SI joint injection. Diagnosis: disorder of sacrum Patient was interviewed and the medical record reviewed. There were no medical, pharmacologic, radiographic or other structural contraindications to attempting fluoroscopically guided intra-articular SI joint injection. Risks and expected side effects as well as potential benefit of the procedure were reviewed and voiced concerns addressed. The printed consent form was signed and witnessed. Standard time-out procedure was performed. Patient was placed in the prone position on the fluoroscopy table and automated blood pressure cuff and pulse oximeter applied. The skin entry point for approaching right SI joints was identified under the most advantageous fluoroscopic view and marked. Following thorough Chlorhexadine preparation of the skin and draping and 1% lidocaine infiltration of the skin entry point and subcutaneous tissues, a 22 gauge spinal needle was placed under fluoroscopic guidance into right SI joints was identified under the most advantageous fluoroscopic view and marked. Following thorough Chlorhexadine preparation of the skin and draping and 1% lidocaine infiltration of the skin entry point and subcutaneous tissues, a 22 gauge spinal needle was placed under fluoroscopic guidance into left SI joint. Intra-articular placement was confirmed by a clear arthrogram resulting from the injection of 0.25ml Omnipaque 240, 1ml 1% lidocaine, and 40mg Depomedrol were injected intra-articularily on each side with an initial reproduction of a significant component of the usual pain. Vital signs were stable throughout the procedure and were as recorded in the documentation flowsheet by the nursing staff. If given, dosages of intravenous drugs for anxiolysis and analgesia were documented in MAR. Follow up plans and appointments were discussed with the patient. Post procedure instruction was given as documented in nursing documentation and having met discharge criteria, and was discharged from the [facility]. COMMENTS: Patient tolerated procedure well. Stephanie Matos Pain Management CC: Oj Blakely
[2019-03-28] MEDS: methylPREDNISolone ACETATE 80 MG/ML VIAL IJ (13:49)
[2019-03-28] MEDS: Omnipaque 240 MG/ML 50 ML BTL IJ (13:49)
--- NOTE | 2019-03-28 14:27 | DI.RAD_ITS ---
EXAM: XR PAIN CLINIC SACROILIAC 2V CLINICAL HISTORY: Dx: Sacroiliac Joint Dysfunction, SACROILIAC JOINT INJECTION TECHNIQUE: Fluoroscopy was provided for the referring physician for guidance with performing injecti on procedure. COMPARISON: No exams were available for comparison FINDINGS: Please see procedure note for details. Fluoro time: 30.6 seconds
== END 2019-03-28 13:11 ==
PROVIDERS: PCP Nurse Practitioner Family; Visit Provider Internal Medicine
DX: M53.3 Sacrococcygeal disorders, not elsewhere classified (principal)
CPT/HCPCS: 27096; 72200; J1040; Q9967

== ENCOUNTER 2019-04-25 01:36 | Outpatient (CLI) | payer MEDICARE, MEDICAID, SELFPAY ==
--- NOTE | 2019-04-25 13:59 | DI.CT_ITS ---
EXAM: CT CHEST WO CLINICAL HISTORY: LT LOWER LOBE LUNG NODULE, R91.8. TECHNIQUE: Imaging protocol: Axial computed tomography images were obtained and coronal and sagittal reformatted images were created and reviewed. COMPARISON: ABD PELVIS WITH CONTRAST from 09/11/2017 FINDINGS: Tracheobronchial tree: Patent where visualized. Mediastinum and Gela: No dominant adenopathy or fluid collection. Pulmonary parenchyma: There are stable pulmonary nodules in the lungs. The largest are in the left l ower lobe. No new pulmonary nodules are present. There is a small infiltrate seen in the left upper lobe. This may represent atelectasis or pneumonia. Severe centrilobular emphysematous changes. Pleura: No effusion or pneumothorax. Heart: The heart is not dilated. Moderate coronary artery calcifications are present. Aorta: Thoracic aorta non-dilated. Atherosclerosis. Upper abdomen: Hepatic cysts. Splenic granuloma. Status post cholecystectomy. Interval increase i n size of infrarenal abdominal aortic aneurysm. This now measures 4.5 AP by 3.9 TR cm compared with 4.0 x 3.5 cm. Lymph nodes: Within normal limits. Bones:Degenerative changes. IMPRESSION: 1. Stable pulmonary nodules. No new pulmonary nodules. 2. Interval increase in size of infrarenal abdominal aortic aneurysm. This now measures 4.5 AP by 3. 9 TR cm. 3. Centrilobular emphysema. 4. Moderate coronary artery calcifications. DATA REPOSITORY: All CT scans at this facility are submitted to the National Radiology Data Registry (NRDR) Dose Index Registry (DIR) with the [employer] ([employer]). RADIATION OPTIMIZATION: All CT scans at this facility use at least one of these dose optimization te chniques: automated exposure control; mA and/or kV adjustment per patient size (includes targeted exa ms where dose is matched to clinical indication); or iterative reconstruction.
== END 2019-04-25 01:56 ==
PROVIDERS: PCP Nurse Practitioner Family; Visit Provider Nurse Practitioner Family
DX: R91.8 Other nonspecific abnormal finding of lung field (principal); J43.8 Other emphysema; I71.4 Abdominal aortic aneurysm, without rupture; K76.89 Other specified diseases of liver; Z90.49 Acquired absence of other specified parts of digestive tract
CPT/HCPCS: 71250

== ENCOUNTER 2019-05-01 20:35 | Outpatient (REF) | payer MEDICARE, MEDICAID, SELFPAY ==
[2019-05-01 19:31] LABS: Abs Immature Grans 0.01 k/cumm (0.0-0.09); Absolute Basophil Count 0.01 k/cumm (0.0-0.2); Absolute Eosinophil Count 0.13 k/cumm (0.0-0.7); Absolute Monocyte Count 0.83 k/cumm (0.11-0.7); Absolute Neutrophil Count 4.33 k/cumm (1.2-6.7); Basophils % 0.2; HCT 43.9 % (36.0-46.0); HGB 14.2 g/dL (12.0-15.5); Immature Grans % 0.2 %; Lymphocytes % 17.2; Mean Corp. HGB Concentration 32.3 g/dL (32.0-36.0); Mean Corpuscular Hemoglobin 30.9 pg (27.0-33.0); Mean Corpuscular Volume 95.6 fL (80-95); Mean Platelet Volume 10.2 fL (8.0-11.0); Monocytes % 12.9; Neutrophils % 67.5; Platelet Count 219 x1000/uL (130-400); RBC 4.59 m/cumm (4.00-5.20); RBC Distribution Width 13.8 % (11.7-14.6); White Blood Cell Count 6.41 k/cumm (4.4-10.8)
[2019-05-01 19:45] LABS: ALT 28 U/L (14-59); AST 20 U/L (15-37); Albumin 3.9 g/dL (3.4-5.0); Alkaline Phosphatase 108 U/L (46-116); Anion Gap 7.3 mmol/L (3-11); BUN 14 mg/dL (7-18); Bilirubin, Total 0.4 mg/dL (0.2-1.0); CO2 31.7 mmol/L (21.0-32.0); CREATININE 0.74 mg/dL (0.55-1.02); Calcium 8.7 mg/dL (8.5-10.1); Chloride 104 mmol/L (98-107); Glucose 121 mg/dL (74-106); Potassium 3.7 mmol/L (3.5-5.1); Sodium 143 mmol/L (136-145); Total Protein 6.5 g/dL (6.4-8.2)
== END 2019-05-01 20:55 ==
LOC: NCHCN 20:35
PROVIDERS: PCP Nurse Practitioner Family; Visit Provider Nurse Practitioner Family
DX: D72.819 Decreased white blood cell count, unspecified (principal)
CPT/HCPCS: 80053; 85025

== ENCOUNTER 2019-05-15 09:24 | Emergency (ER) | payer MEDICARE, MEDICAID, SELFPAY ==
[2019-05-15 09:26] VITALS: BP 145/79; PULSE 76; RESP 16; TEMP 36.4; O2SAT 95
--- NOTE | 2019-05-15 09:27 | ED.GENADUL_ITS ---
Discharge Plan Disposition Patient Disposition: HOME Condition: Good Discharge Details Chief Complaint: Nk/Back Pain Clinical Impression: Sacroiliitis Primary Care Provider: Oj Blakely ED Provider: Leroy Mayorga Home Meds and New Rx's Prescriptions: New prednisone 20 mg tablet 20 mg PO DAILY Qty: 42 RF: 0 No Action clobetasol 0.05 % cream 1 applic TP DAILY PRNRF: 0 betamethasone dipropionate 0.05 % cream 1 applic TP BID RF: 0 Restasis MultiDose 0.05 % drops 1 drp OP Q12H RF: 0 hydrocortisone 2.5 % cream 1 applic TP BID PRNRF: 0 cetirizine [All Day Allergy (cetirizine)] 10 mg tablet 20 mg PO DAILY RF: 0 atorvastatin 10 mg tablet 10 mg PO QHS RF: 0 ropinirole 0.25 mg Tablet 25 mg PO HS PRNRF: 0 oxybutynin chloride 5 mg Tablet 2.5 mg PO DAILY RF: 0 Ensure Liquid RF: 0 Restasis 0.05 % Dropperette 1 drp OPHTHALMIC (EYE) Q12H RF: 0 aspirin [Adult Aspirin Regimen] 81 mg tablet,delayed release (DR/EC) 81 mg PO DAILY RF: 0 levothyroxine 75 mcg Tablet 75 mcg PO DAILY RF: 0 (DME) Poise Pads 1 EACH pad 1 ea Miscellaneous PRN RF: 0 lorazepam 1 MG tablet 1 mg PO TID RF: 0 Discharge Instructions Instructions: Sacroiliitis (ED) Additional Instructions: At this time your symptoms are consistent with sacroiliitis. There is no evidence of significant fracture pathology on your x-ray requiring surgery at this time. Please take the steroids as directed. Make sure to take this with food. Please continue to take your Advil, you can also add 500 mg to 1000 mg of Tylenol every 6 hours. Please use the cane as we discussed. If you notice any worsening of your symptoms, or any new symptoms such as vomiting, diarrhea, fever, chills, shortness of breath, chest pain, numbness, weakness, or fainting , please return immediately to the emergency department for reevaluation. Please follow up with your primary care provider as soon as possible for reassessment and reevaluation. As always, it was a pleasure participating in your medical care today. Referrals: Oj Blakley, COIL CONNECTOR REPAIRER [Primary Care Provider] - Medical Decision Making This is an 83-year-old female with a past medical history of high chol esterol, thyroid disease, lupus, AAA, known chronic back pain, and a history of sacroiliitis who presents today for lower back pain. Patient states that she usually gets injections for her back pain, most recent injection was 3 weeks ago. Patient states that over the past 1 to 2 weeks she has had continuation of her mild pain in her lower posterior pelvis/hips. It is all on the bone itself, reproducible with palpation, made worse with walking. Worse on the left than the right. She denies any concerning red flags of bowel or bladder incontinence, focal weakness, numbness or tingling, saddle anesthesia. She states that this feels nearly identical with her previous sacroiliitis of the past. She denies any recent falls or trauma. She has no other complaints at this time. No other modifying factors. She has been taking Advil which only slightly improves her symptoms, and she is also been using icy hot which has not helped at all. She denies IV or illicit drug use, fever chills, shortness of breath or plaints. She denies any other complaints at this time. No other modifying factors. Physical exam demonstrates reproducible tenderness over the SI joints bilaterally worse on the left than the right which the patient states is the pain that she is experiencing. She ambulates well, no signs of deformity. No signs of cauda equina syndrome or central spinal pathology. She has no fever or chills and does not use IV or illicit drug use. Exam at this time is clinically consistent with sacroiliitis. Will recommend continued NSAIDs adding Tylenol, continued Biofreeze patches, and steroids with taper. We will get a screening x-ray to rule out acute pathology which I suspect is notably unlikely especially in the absence of trauma. She does have an MRI scheduled with her PCP. We will also give her a cane to go home with which she was initially apprehensive of taking and she did not want assistance but eventually conceded. I do think that this is indicated secondary to her notable arthritis, as well as her pain because of this. I do feel that this will help reduce the risk of falls. Additionally we did offer to get additional help for the patient at home also something that she has refused. X-ray shows no evidence of acute acute fracture per Dr. Iglesias, there is evidence of notable SI joint degeneration. We will give the cane recommend close follow-up. Discussed red flags which to return. I have extensively reviewed the treatment plan and discharge instructions with the patient. I have addressed all patient concerns at this time. The patient was made aware of what symptoms to monitor for that would warrant a return to the emergency department. Discussed the plan with the patient, they demonstrate verbal understanding and agreement with our assessment and plan at this time. HPI General Date/Time Provider Initiated Documentation: 05/15/19 09:26 . HPI Narrative: This is an 83-year-old female with a past medical history of high cholesterol, thyroid disease, lupus, AAA, known chronic back pain, and a history of sacroiliitis who presents today for lower back pain. Patient states that she usually gets injections for her back pain, most recent injection was 3 weeks ago. Patient states that over the past 1 to 2 weeks she has had continuation of her mild pain in her lower posterior pelvis/hips. It is all on the bone itself, reproducible with palpation, made worse with walking. Worse on the left than the right. She denies any concerning red flags of bowel or bladder incontinence, focal weakness, numbness or tingling, saddle anesthesia. She states that this feels nearly identical with her previous sacroiliitis of the past. She denies any recent falls or trauma. She has no other complaints at this time. No other modifying factors. She has been taking Advil which only slightly improves her symptoms, and she is also been using icy hot which has not helped at all. She denies IV or illicit drug use, fever chills, shortness of breath or plaints. She denies any other complaints at this time. No other modifying factors. Related Data Home Medications Medication Instructions Recorded Confirmed lorazepam 1 mg PO TID 12/26/12 03/28/19 Poise Pads ea 07/08/16 02/27/19 atorvastatin 10 mg tablet 10 mg PO QHS 05/31/18 03/28/19 betamethasone dipropionate 0.05 % 1 applic TP BID 05/31/18 03/28/19 topical cream cetirizine 10 mg tablet 20 mg PO DAILY tab 05/31/18 03/28/19 clobetasol 0.05 % topical cream 1 applic TP DAILY PRN 05/31/18 03/28/19 cyclosporine 0.05 % eye drops 1 drp OP Q12H 05/31/18 03/28/19 hydrocortisone 2.5 % topical cream 1 applic TP BID PRN 05/31/18 03/28/19 cyclosporine [Restasis] 1 drp OPHTHALMIC (EYE) Q12H 02/15/19 03/28/19 food supplemt, lactose-reduced ml 02/15/19 02/27/19 [Ensure] oxybutynin chloride 2.5 mg PO DAILY 02/15/19 03/28/19 ropinirole 25 mg PO HS PRN 02/15/19 03/28/19 aspirin 81 mg tablet,delayed 81 mg PO DAILY 02/27/19 03/28/19 release levothyroxine 75 mcg PO DAILY 02/27/19 03/28/19 prednisone 20 mg PO DAILY #42 tab 05/15/19 Previous Rx's Medication Instructions Recorded prednisone 20 mg PO DAILY #42 tab 05/15/19 Allergies Allergy/AdvReac Type Severity Reaction Status Date / Time meperidine HCl [From Demerol] AdvReac Severe made me Unverified 03/28/19 13:04 very, very sick wheat AdvReac Severe Diarrhea Unverified 03/28/19 13:04 azithromycin AdvReac Intermediate gets sick Unverified 03/28/19 13:04 Penicillins AdvReac Mild heart Unverified 03/28/19 13:04 races,rash WHEAT BREAD Allergy Intermediate Uncoded 03/28/19 13:04 General ENRIQUE: 4 Review of Systems All systems reviewed & are unremarkable except as noted in HPI and below PFSH Social History Smoking/Tobacco Use Status: Current every day Tobacco Type: cigarettes Alcohol Intake: never Drug use: Never Do you feel safe at home: Yes Do you feel safe in your relationship?: Yes Exam Narrative Exam Narrative: 1.Const: Well-nourished, Well-developed, appearing stated age 2.Eyes: PERRL, no conjunctival injection, and symmetrical lids. 3.ENT: Atraumatic external nose and ears. Moist MM. Neck: Symmetric, trachea midline, No thyromegaly. 4.CVS: +S1/S2, No murmurs or gallops. Peripheral pulses 2+ and equal in all extremities. Brisk capillary refill in all extremities. 5.RESP: Unlabored respiratory effort. Clear to auscultation bilaterally. No wheezes rales or rhonchi 6.GI: Soft, Nontender/Nondistended, No hepatosplenomegaly. No guarding or rebound. 7.MSK: Normocephalic/Atraumatic, Extremities w/o deformity. No cyanosis or clubbing, Normal movement of all extremities. No midline tenderness to palpation over the CTLS spine. Normal ROM in flexion, extension, side bend, and rotation. Patient has +5 out of 5 strength in the lower extremities in dorsiflexion and plantarflexion, knee flexion and extension, hip flexion and extension. Normal strength for dorsiflexion and plantar flexion of the great toe bilaterally. There is +2 over 2 dorsalis pedis pulses bilaterally. There is normal sensation to the skin with light touch at the foot, knee, and hip. Normal saddle sensation. Good sensation over the deep sural nerve area bilaterally. Rectal exam demonstrates good rectal tone, good perirectal sensation. No evidence of bowel or bladder incontinence or urinary retention. reflexes are +2 over 4 in the patellar reflex bilaterally. +5 out of 5 strength in the medial, u lnar, radial nerve distribution bilaterally in the hands as well as intact light touch sensation to these dermatomes on the hands Palpation of the patient's hips is stable bilaterally, no pain with internal or external rotation of the hip. She does have mild reproducible tenderness over the left and right SI joint, particularly worse over the left SI joint. Patient states that this is the pain she is experiencing, especially with a reproducible component. She does get up and ambulate well without difficulty. No evidence of ataxia or imbalance. 8.Skin: Warm, Dry. No rashes or lesions. 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 Sensation grossly intact, no focal neurologic deficits. Please see musculoskeletal 10.Psych: (AAO) x3. Appropriate mood and affect
--- NOTE | 2019-05-15 09:45 | DI.RAD_ITS ---
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 There are degenerative changes both hips and SI joints. Minimal deformit y of the subcapital portion of the femur appears unchanged from prior CT of 09/11/2018. IMPRESSION: No evidence of acute fracture. Degenerative changes of both hips and SI joints noted.
[2019-05-15] MEDS: predniSONE 20 MG TAB 60 MG PO (10:03)
[2019-05-15 10:48] VITALS: BP 124/76; PULSE 68; RESP 18; TEMP 36.5; O2SAT 95
[2019-05-15 10:54] VITALS: RESP 18; TEMP 36.5; O2SAT 95
--- NOTE | 2019-05-15 10:57 | NUR.NOTE ---
Provided patient with a walking cane. Staff educated patient with proper use of device. Patient able to demonstrate proper use.
== END 2019-05-15 10:54 | disposition home or self-care (01) ==
PROVIDERS: Emergency Provider Student in an Organized Health Care Education/Training Program; PCP Nurse Practitioner Family
DX: M46.1 Sacroiliitis, not elsewhere classified (principal)
CPT/HCPCS: 73521; 99283; J7512

== ENCOUNTER 2019-05-24 01:19 | Outpatient (CLI) | payer MEDICARE, MEDICAID, SELFPAY ==
--- NOTE | 2019-05-24 11:20 | DI.MRI_ITS ---
EXAM: MR LUMBAR SPINE WO CLINICAL HISTORY: CHRONIC LOW BACK PAIN, M54.5, OSTEOPOROSIS, M81.0. TECHNIQUE: Multiplanar multisequence MRI was performed. COMPARISON: MRI - LUMBAR SPINE WO CONTRAST from 07/13/2017 FINDINGS: The conus medullaris has a normal appearance and location. No compression fractures are identified. At L5-S1, there is disc desiccation. There are degenerative changes of the facets. No focal disc he rniation or central spinal canal stenosis is present. There is mild narrowing of the right neural fo ramen. The left neural foramen is widely patent. At L4-L5, there is a diffuse disc bulge. There are degenerative changes of the facets and hypertroph y of the ligamentum flavum. There is mild narrowing of the central spinal canal. There is moderate narrowing of the right neural foramen and left neural foramen. At L3-L4, there is disc desiccation. There is a diffuse disc bulge. No significant central spinal c anal stenosis is seen. There is mild to moderate narrowing of the neural foramina bilaterally. At L2-L3, there is disc desiccation. No focal disc herniation or central spinal canal stenosis is pr esent. There is onfe-fe-[id number] narrowing of the left neural foramen. No significant right neural foraminal stenosis is seen. At L1-L2, there is disc desiccation. No central spinal canal stenosis or neural foraminal stenosis i s seen. No focal disc herniation is present. IMPRESSION: Degenerative changes in the lumbar spine. There are findings of central spinal canal and neural fora wing stenosis as described above. DATA REPOSITORY:
== END 2019-05-24 01:39 ==
PROVIDERS: PCP Nurse Practitioner Family; Visit Provider Nurse Practitioner Family
DX: M54.5 Low back pain (principal); M81.0 Age-related osteoporosis without current pathological fracture; M51.37 Other intervertebral disc degeneration, lumbosacral region
CPT/HCPCS: 72148

== ENCOUNTER 2019-09-07 10:54 | Outpatient (CLI) | payer MEDICARE, MEDICAID, SELFPAY ==
--- NOTE | 2019-09-07 06:00 | DI.RAD_ITS ---
EXAM: XR PAIN CLINIC SACRIOILIAC 2V CLINICAL HISTORY: Dx: Sacroiliac Joint Dysfunction, BILAT SI JOINT INJECTION TECHNIQUE: Fluoroscopy was provided for the referring physician for guidance with performing injecti on procedure. COMPARISON: No exams were available for comparison FINDINGS: Please see procedure note for details. Fluoro TIME: 30.7 seconds RADIATION DOSE DELIVERED:
[2019-09-07 11:05] VITALS: BP 119/75; PULSE 76; RESP 16; TEMP 36.8; O2SAT 93
[2019-09-07] MEDS: Omnipaque 240 MG/ML 50 ML BTL IJ (11:46)
[2019-09-07] MEDS: methylPREDNISolone ACETATE 80 MG/ML VIAL IJ (11:46)
[2019-09-07 11:48] VITALS: BP 138/76; PULSE 76; RESP 16; O2SAT 94
--- NOTE | 2019-09-07 13:05 | PDOC.PAIN_ITS ---
Pain Clinic Procedure Note Procedure Note Procedure Note: INTRA-ARTICULAR SI JOINT INJECTION BELLE WILLS has been referred to the [facility] for intra- articular SI joint injection. COMMENTS: She has pain directly over the bilateral sacroiliac joints DX: Bilateral sacroiliac joint dysfunction Patient was interviewed and the medical record reviewed. There were no medical, pharmacologic, radiographic or other structural contraindications to attempting fluoroscopically guided intra-articular SI joint injection. Risks and expected side effects as well as potential benefit of the procedure were reviewed and voiced concerns addressed. The printed consent form was signed and witnessed. Standard time-out procedure was performed. Patient was placed in the prone position on the fluoroscopy table and automated blood pressure cuff and pulse oximeter applied. The skin entry point for approaching bilateral SI joints was identified under the most advantageous fluoroscopic view and marked. Following thorough Chlorhexadine preparation of the skin and draping and 1% lidocaine infiltration of the skin entry point and subcutaneous tissues, a 22 gauge spinal needle was placed under fluoroscopic guidance into bilateral SI joints was identified under the most advantageous fluoroscopic view and marked. Following thorough Chlorhexadine preparation of the skin and draping and 1% lidocaine infiltration of the skin entry point and subcutaneous tissues, a 22 gauge spinal needle was placed under fluoroscopic guidance into bilateral SI joints. Intra-articular placement was confirmed by a clear arthrogram resulting from the injection of 0.25ml Omnipaque 240, 1ml 1% lidocaine, and 40mg Depomedrol were injected intra-articularily into each joint with an initial reproduction of a significant component of the usual pain. Vital signs were stable throughout the procedure and were as recorded in the docflowsheet by the nursing staff. If given, dosages of intravenous drugs for anxiolysis and analgesia were documented in MAR. Follow up plans and appointments were discussed with the patient. Post procedure instruction was given as documented in nursing documentation and having met discharge criteria, and was discharged from the [facility]. COMMENTS: If this procedure is helpful, it can be completed up to 3 times per 12 months. CC: Oj Blakely
== END 2019-09-07 11:14 ==
PROVIDERS: PCP Nurse Practitioner Family; Visit Provider Preventive Medicine Occupational Medicine
DX: M53.3 Sacrococcygeal disorders, not elsewhere classified (principal)
CPT/HCPCS: 27096; 72200; J1040; Q9967

== ENCOUNTER 2020-01-03 10:36 | Emergency (ER) | payer MEDICARE, MEDICAID, SELFPAY ==
[2020-01-03] VITALS (20 sets, daily range): BP systolic 110–123; BP diastolic 54–76; PULSE 80–90; RESP 16–30; TEMP 36.5–36.6; O2SAT 87–93
--- NOTE | 2020-01-03 11:22 | ED.GENADUL_ITS ---
Discharge Plan Disposition Patient Disposition: HOME Condition: Stable Discharge Details Clinical Impression: Cough Primary Care Provider: Oj Blakely ED Provider: Cesario Ball Home Meds and New Rx's Prescriptions: New budesonide [Rhinocort Allergy] 32 mcg/actuation spray,non-aerosol 1 spray intranasal DAILY Qty: 8.43 RF: 0 levofloxacin 500 mg tablet 500 mg PO DAILY Qty: 7 RF: 0 Continued clobetasol 0.05 % cream 1 applic TP DAILY PRNRF: 0 betamethasone dipropionate 0.05 % cream 1 applic TP BID RF: 0 hydrocortisone 2.5 % cream 1 applic TP BID PRNRF: 0 cetirizine [All Day Allergy (cetirizine)] 10 mg tablet 20 mg PO DAILY RF: 0 atorvastatin 10 mg tablet 10 mg PO QHS RF: 0 ropinirole 0.25 mg Tablet 0.25 - 0.5 mg PO HS PRNRF: 0 oxybutynin chloride 5 mg Tablet 2.5 mg PO BID PRNRF: 0 Ensure Liquid 9 ml PO QID RF: 0 Restasis 0.05 % Dropperette 1 drp OPHTHALMIC (EYE) Q12H RF: 0 aspirin [Adult Aspirin Regimen] 81 mg tablet,delayed release (DR/EC) 81 mg PO DAILY RF: 0 levothyroxine 75 mcg Tablet 75 mcg PO DAILY RF: 0 ibuprofen [Advil] 200 mg tablet 600 mg PO Q6H PRNRF: 0 fluticasone propionate 50 mcg/actuation Pearl,Suspension 1 spray INTRANASAL BID RF: 0 (DME) Poise Pads 1 EACH pad 1 ea Miscellaneous PRN RF: 0 lorazepam 1 MG tablet 1 mg PO TID RF: 0 meloxicam 7.5 mg tablet 7.5 mg PO DAILY RF: 0 Discharge Instructions Instructions: Acute Cough (ED) Additional Instructions: At this time we discussed your slightly elevated white blood cell count, otherwise laboratory values and x-ray are unremarkable. Covid is pending and we discussed quarantining. Rhinocort and Levaquin as directed. Plenty of fluids to avoid dehydration. [id number] Tylenol as directed for discomfort. Please watch for new or worsening symptoms and return to the ER for any concerns. Otherwise I recommend contacting your primary care provider for pr ompt outpatient reevaluation. Stand Alone Forms: POSITIVE COVID-19/TO BE TESTED Medical Decision Making 84-year-old female with history of COPD, hypertension, anxiety, CAD, AAA, current smoker, presents to the ER for ongoing postnasal drip now with a fever of 101 yesterday morning, dry cough, sore throat. Clinically she appears well, nontoxic. She is afebrile here in the ER and has not had any antipyretics today blood pressure 118/76, pulse in the 90s, respirations 16. O2 sat noted to be 88% on room air however this appears to be an accurate, poor contact with the sensor. After removing the sensor, getting a better waveform, O2 sat of 92% on room air. Will obtain routine laboratory values, IV access, flu swab, Covid, 1 view chest x-ray, rapid strep. No clear indication for breathing treatment, antipyretics, IV fluids, etc. here in the ER. Patient and daughter are comfortable with this plan. Chest x-ray read by me as negative, later confirmed by radiology. Laboratory values reveal a white blood cell count of 12.07 hemoglobin 13.8 hematocrit 41.5 platelet count 144. Potassium 3.9 creatinine 0.83 GFR greater than 60. Ur inalysis without obvious infection. Negative flu a and B. Negative rapid strep, culture pending. Covid pending. Discussed work-up with patient and family. Discussed treatment options. Patient has tried multiple oral allergy medications. She is open to the idea of a nasal steroid at this time. We also discussed her minimally elevated white count, otherwise unremarkable work-up. Viral illness versus Covid, versus early pneumonia, versus COPD exacerbation. Will place on Levaquin 500 mg once a day for the next 7 days. We did discuss quarantining regarding her pending Covid test. Patient and mother have no additional questions upon discharge. Upon discharge patient appears well, nontoxic. O2 sats 93% on room air. Patient able to speak in full sentences, no evidence of respiratory compromise. Medical Records Medical records reviewed: Yes I reviewed the patient's medical records. Lab Data Lab results reviewed: Yes I reviewed the patient's lab results. Lab results narrative: 01/03/20 11:10 Nasopharynx Influenza Types A,B Antigen - Final 01/03/20 11:13 Pharynx Streptococcus Screen (ANNE) - Pending Laboratory Tests Range/Units 01/03/20 01/03/20 01/03/20 11:10 11:25 11:25 WBC (4.4-10.8) 10^3/uL 12.07 H RBC (3.93-5.22) 10^6/uL 4.35 Hgb (11.2-15.7) g/dL 13.8 Hct (36.0-46.0) % 41.5 MCV (80-95) fL 95.4 H MCH (27.0-33.0) pg 31.7 MCHC (32.0-36.0) % 33.3 RDW (11.7-14.6) % 13.1 Plt Count (130-400) 10^3/uL 144 MPV (8.0-11.0) fL 10.1 Immature Gran % 0.3 Neutrophils % 78.2 Lymphocytes % 9.3 Monocytes % 11.8 Eosinophils % 0.2 Basophils % 0.2 Nucleated RBC % % 0 Absolute Neutrophils (1.2-6.7) 10^3/uL 9.44 H Absolute Lymphocytes (1.2-3.4) 10^3/uL 1.12 L Absolute Monocytes (0.1-0.8) 10^3/uL 1.42 H Absolute Eosinophils (0.0-0.7) 10^3/uL 0.02 Absolute Basophils (0.0-0.2) 10^3/uL 0.02 Sodium (136-145) mmol/L 134 L Potassium (3.5-5.1) mmol/L 3.9 Chloride (98-107) mmol/L 97 L Carbon Dioxide (21.0-32.0) mmol/L 30.8 Anion Gap (3-11) mmol/L 6.2 BUN (7-18) mg/dL 17 Creatinine (0.55-1.02) mg/dL 0.83 Estimated GFR/1.73 m2 (mL/min/1.73m2) >= 60.00 Glucose (74-106) mg/dL 102 Calcium (8.5-10.1) mg/dL 8.8 Total Bilirubin (0.2-1.0) mg/dL 1.4 H AST (15-37) U/L 18 ALT (14-59) U/L 16 Alkaline Phosphatase (46-116) U/L 102 Total Protein (6.4-8.2) g/dL 6.7 Albumin (3.4-5.0) g/dL 3.4 Urine Color (Yellow) Urine Clarity (Clear) Urine pH (5-8) Ur Specific [place] (1.005-1.025) Urine Protein (Negative) mg/dL Urine Ketones (Negative) mg/dL Urine Blood (Negative) Urine Nitrite (Negative) Urine Bilirubin (Negative) Urine Urobilinogen (Up TO 0.2) EU/dL Ur Leukocyte Esterase (Negative) Urine RBC (0-2) HPF Urine WBC (0-5) HPF Ur Epithelial Cells (Negative) HPF Urine Crystals (Negative) HPF Urine Bacteria (Negative) HPF Urine Casts (Negative) LPF Urine Mucus (Negative) Urine Other (Negative) Ur Culture Indicated? Urine Glucose (Negative) mg/dL COVID-19 PCR Cancelled Nasopharyn COVID-19 PCR Cancelled Ref Test Perform Site Cancelled Range/Units 01/03/20 11:40 WBC (4.4-10.8) 10^3/uL RBC (3.93-5.22) 10^6/uL Hgb (11.2-15.7) g/dL Hct (36.0-46.0) % MCV (80-95) fL MCH (27.0-33.0) pg MCHC (32.0-36.0) % RDW (11.7-14.6) % Plt Count (130-400) 10^3/uL MPV (8.0-11.0) fL Immature Gran % Neutrophils % Lymphocytes % Monocytes % Eosinophils % Basophils % Nucleated RBC % % Absolute Neutrophils (1.2-6.7) 10^3/uL Absolute Lymphocytes (1.2-3.4) 10^3/uL Absolute Monocytes (0.1-0.8) 10^3/uL Absolute Eosinophils (0.0-0.7) 10^3/uL Absolute Basophils (0.0-0.2) 10^3/uL Sodium (136-145) mmol/L Potassium (3.5-5.1) mmol/L Chloride (98-107) mmol/L Carbon Dioxide (21.0-32.0) mmol/L Anion Gap (3-11) mmol/L BUN (7-18) mg/dL Creatinine (0.55-1.02) mg/dL Estimated GFR/1.73 m2 (mL/min/1.73m2) Glucose (74-106) mg/dL Calcium (8.5-10.1) mg/dL Total Bilirubin (0.2-1.0) mg/dL AST (15-37) U/L ALT (14-59) U/L Alkaline Phosphatase (46-116) U/L Total Protein (6.4-8.2) g/dL Albumin (3.4-5.0) g/dL Urine Color (Yellow) Brit Urine Clarity (Clear) Clear Urine pH (5-8) 6.5 Ur Specific [place] (1.005-1.025) 1.020 Urine Protein (Negative) mg/dL 100 H Urine Ketones (Negative) mg/dL Trace H Urine Blood (Negative) Negative Urine Nitrite (Negative) Negative Urine Bilirubin (Negative) Small H Urine Urobilinogen (Up TO 0.2) EU/dL 2.0 H Ur Leukocyte Esterase (Negative) Negative Urine RBC (0-2) HPF 0-2 Urine WBC (0-5) HPF 3-5 Ur Epithelial Cells (Negative) HPF Rare Urine Crystals (Negative) HPF Negative Urine Bacteria (Negative) HPF Rare Urine Casts (Negative) LPF 0-2 hyaline Urine Mucus (Negative) Trace Urine Other (Negative) Rare renal Ur Culture Indicated? No Urine Glucose (Negative) mg/dL Negative COVID-19 PCR Nasopharyn COVID-19 PCR Ref Test Perform Site HPI General Mode of arrival: ambulatory . Date/Time Provider Initiated Documentation: 01/03/20 10:38 . Limitations to Documentation: no limitations . Information obtained by: patient . HPI Narrative: This is an 84-year-old female with past medical history that includes AAA, allergic rhinitis, anxiety, CAD, celiac disease, chronic leukopenia, conductive hearing loss, dizziness, hypothyroidism, COPD, smokes approximately 7 cigarettes daily, osteoporosis, does not use supplemental oxygen at home, presents to the ER complaining of what she describes as chronic allergies causing postnasal drip, dry cough. She reports that the allergies are chronic but that the postnasal drip and cough are worse over the past few days. She also complains of a mild sore throat. She reports that she was made a new hearing aid for her left ear approximately 3 months ago, it does not fit correctly, and causes chronic left ear pain. She denies any chest pain or shortness of breath. Reports that yesterday upon getting out of bed she was noted to have a fever of 101, did not take any medications for this, and is now afebrile. She has tried multiple oral allergy medications but none seem to work. She is hesitant to try any other medications because I do not like sticking things of my nose. She denies headache, neck pain, eye discharge, chest pain, shortness of breath, productive cough, abdominal pain, nausea, vomiting, numbness, tingling, weakness, fluid retention, change in bowel or bladder habits. She denies recent travel or sick contacts. Related Data Home Medications Medication Instructions Recorded Confirmed lorazepam 1 mg PO TID 12/26/12 01/03/20 Poise Pads ea 07/08/16 09/07/19 atorvastatin 10 mg tablet 10 mg PO QHS 05/31/18 01/03/20 betamethasone dipropionate 0.05 % 1 applic TP BID 05/31/18 01/03/20 topical cream cetirizine 10 mg tablet 20 mg PO DAILY tab 05/31/18 01/03/20 clobetasol 0.05 % topical cream 1 applic TP DAILY PRN 05/31/18 01/03/20 hydrocortisone 2.5 % topical cream 1 applic TP BID PRN 05/31/18 01/03/20 Ensure 9 ml PO QID 02/15/19 01/03/20 Restasis 1 drp OPHTHALMIC (EYE) Q12H 02/15/19 01/03/20 oxybutynin chloride 2.5 mg PO BID PRN 02/15/19 01/03/20 ropinirole 0.25 - 0.5 mg PO HS PRN 02/15/19 01/03/20 aspirin 81 mg tablet,delayed 81 mg PO DAILY 02/27/19 01/03/20 release levothyroxine 75 mcg PO DAILY 02/27/19 01/03/20 ibuprofen 200 mg tablet 600 mg PO Q6H PRN tab 05/31/19 01/03/20 budesonide [Rhinocort Allergy] 1 spray INTRANASAL DAILY #8.43 ml 01/03/20 fluticasone propionate 1 spray INTRANASAL BID 01/03/20 01/03/20 levofloxacin 500 mg PO DAILY #7 tab 01/03/20 meloxicam 7.5 mg PO DAILY 01/03/20 01/03/20 Previous Rx's Medication Instructions Recorded budesonide [Rhinocort Allergy] 1 spray INTRANASAL DAILY #8.43 ml 01/03/20 levofloxacin 500 mg PO DAILY #7 tab 01/03/20 Allergies Allergy/AdvReac Type Severity Reaction Status Date / Time meperidine HCl [From Demerol] AdvReac Severe made me Unverified 01/03/20 10:49 very, very sick wheat AdvReac Severe Diarrhea Unverified 01/03/20 10:49 azithromycin AdvReac Intermediate gets sick Unverified 01/03/20 10:49 Penicillins AdvReac Mild heart Unverified 01/03/20 10:49 races,rash WHEAT BREAD Allergy Intermediate Uncoded 01/03/20 10:49 General Stated Complaint: Fever ENRIQUE: 3 Review of Systems Constitutional Constitutional: Denies fatigue and Reports fever(s) Eyes Eyes: Denies change in vision and Denies eye discharge ENT Ears, Nose, Mouth, and Throat: Denies ear discharge, Reports nasal discharge and Reports sore throat Cardiovascular Cardiovascular: Denies chest pain and Denies dyspnea Respiratory Respiratory: Reports cough, Denies dyspnea and Denies wheezing Gastrointestinal Gastrointestinal: Denies abdominal pain, Denies nausea and Denies vomiting Genitourinary Genitourinary: Denies dysuria Musculoskeletal Musculoskeletal: Denies back pain Integumentary/Breasts Skin/Breast: Denies rash Neurologic Neurologic: Reports headache(s) (Mild, global) Endocrine Endocrine: Denies fatigue Allergic/Immunologic Allergic/Immunologic: Denies wheezing [facility] Medical History AAA (abdominal aortic aneurysm) Abnormal mammogram of right breast Adenomatous colon polyp Allergic rhinitis Anxiety Benzodiazepine dependence CAD (coronary artery disease) *Possible* Celiac disease Chronic leukopenia Conductive hearing loss, external ear (05/09/15) Dental infection Disorder of left pinna Diverticulosis Dizziness Elevated LFTs Encounter for screening mammogram for breast cancer Gait instability Hearing deficit Hiatal hernia Hypothyroid Impacted cerumen of both ears Knee pain, left Leg cramps Low back pain Lung nodule left lower lobe Lupus erythematosus Mixed conductive and sensorineural hearing loss of left ear with restricted hearing of right ear (12/10/16) Neck pain S/P fall Onychomycosis Nail Osteoporosis Otalgia, left ear Panic disorder Preventative health care Right bundle branch block Sensorineural hearing loss (SNHL) of right ear with restricted hearing of left ear (12/10/16) Sensorineural hearing loss, bilateral (11/04/15) Skin rash Spinal stenosis Syncope Tobacco use Trigger thumb, left thumb Urinary incontinence Uterine fibroid Vitamin D deficiency Weight loss, abnormal Surgical History Cholecystectomy Colonoscopy - [facility] (03/20/16) Family History Father No problems noted. Other Colon cancer Social History Smoking/Tobacco Use Status: Current every day Tobacco Type: cigarettes Alcohol Intake: never Drug use: Never Substance use type: does not use Do you feel safe at home: Yes Do you feel safe in your relationship?: Yes Exam Const General: cooperative, healthy appearing, comfortable and no acute distress Orientation: alert, awake and oriented x3 HENMT Head: normal to inspection, normocephalic and atraumatic Ears: external ears normal, TM's normal bilaterally and EAC's normal General nose exam: external nose normal and nasal discharge clear Face and sinus: normal facial exam Mouth: oral mucosae normal and moist mucous membranes Throat: posterior oropharynx normal and uvula midline Eyes Conjunctivae: conjunctivae normal Sclera: sclerae normal Neck Neck: normal visual inspection, full ROM, no lymphadenopathy, no meningeal signs, trachea midline, supple and nontender Resp Effort & Inspection: normal respiratory effort, able to speak in complete sentences and cough Quality of cough: dry (Mild) Auscultation: diminished lung sounds bilaterally in the lower lung patel (Minimal) Cardio Rate: regular rate Rhythm: regular rhythm GI Palpation: soft and nontender Back/Spine/Pelvis Back: No back tenderness Skin General skin exam: no rashes or lesions noted Neuro General: patient alert, patient awake, moves all extremities and no focal motor deficits Sensory Exam: no sensory deficits noted Extrem General: normal to inspection, full ROM, capillary refill normal, no pedal edema and no calf tenderness Psych Appearance: grossly normal Mental Status: mental status grossly normal Course Vital Signs Vital signs: Vital Signs Temperature 36.5 C 01/03/20 10:46 Pulse 90 01/03/20 10:46 Respiratory Rate 16 01/03/20 10:46 Blood Pressure 118/76 01/03/20 10:46 Pulse Oximetry 88 L 01/03/20 10:46 Temperature 36.5 C 01/03/20 10:46 Temperature Source Tympanic 01/03/20 10:46 Pulse 90 01/03/20 10:46 Respiratory Rate 16 01/03/20 10:46 Respiratory Effort Non-Labored 01/03/20 10:48 Blood Pressure 118/76 01/03/20 10:46 Blood Pressure Position Sitting 01/03/20 10:46 Pulse Oximetry 88 L 01/03/20 10:46 Oxygen Delivery Method Room Air 01/03/20 10:46 Oxygen Flow Rate 0 01/03/20 10:46 Pain Level 8 01/03/20 10:46 Lab/Test Results Lab/Test Results: 01/03/20 11:06 Nasopharynx Influenza Types A,B Antigen - Pending
[2020-01-03 11:38] LABS: Abs Immature Grans 0.04 10^3/uL (0.0-0.06); Absolute Basophil Count 0.02 10^3/uL (0.0-0.2); Absolute Lymphocyte Count 1.12 10^3/uL (1.2-3.4); Basophils % 0.2; Eosinophils % 0.2; HCT 41.5 % (36.0-46.0); HGB 13.8 g/dL (11.2-15.7); Immature Grans % 0.3; Lymphocytes % 9.3; MCH 31.7 pg (27.0-33.0); MCHC 33.3 % (32.0-36.0); MCV 95.4 fL (80-95); MPV 10.1 fL (8.0-11.0); Monocytes % 11.8; Neutrophils % 78.2; Nucleated RBC 0 %; Platelet Count 144 10^3/uL (130-400); RBC 4.35 10^6/uL (3.93-5.22); RDW 13.1 % (11.7-14.6); RDW-SD 46.2 fL; WBC 12.07 10^3/uL (4.4-10.8)
[2020-01-03 11:47] LABS: Absolute Eosinophil Count 0.02 10^3/uL (0.0-0.7); Absolute Monocyte Count 1.42 10^3/uL (0.1-0.8); Absolute Neutrophil Count 9.44 10^3/uL (1.2-6.7)
[2020-01-03 12:00] LABS: ALT 16 U/L (14-59); AST 18 U/L (15-37); Albumin 3.4 g/dL (3.4-5.0); Alkaline Phosphatase 102 U/L (46-116); Anion Gap 6.2 mmol/L (3-11); BUN 17 mg/dL (7-18); Bilirubin, Total 1.4 mg/dL (0.2-1.0); CO2 30.8 mmol/L (21.0-32.0); CREATININE 0.83 mg/dL (0.55-1.02); Calcium 8.8 mg/dL (8.5-10.1); Chloride 97 mmol/L (98-107); Glucose 102 mg/dL (74-106); Potassium 3.9 mmol/L (3.5-5.1); Sodium 134 mmol/L (136-145); Total Protein 6.7 g/dL (6.4-8.2)
[2020-01-03 12:26] LABS: Bilirubin Small (Negative); Blood Negative (Negative); Clarity Clear (Clear); Glucose Negative (Negative); Ketones Trace mg/dL (Negative); Leukocyte Esterase Negative (Negative); Nitrite Negative (Negative); pH 6.5 (5-8)
--- NOTE | 2020-01-03 12:38 | DI.RAD_ITS ---
EXAM: XR PORTABLE CHEST AP CLINICAL HISTORY: COUGH TECHNIQUE: 2D digital imaging was performed. COMPARISON: CR XR CHEST 2V PA LATERAL from 09/15/2018 FINDINGS: MEDIASTINUM: Normal. HEART: Normal. PULMONARY VASCULATURE: Normal. LUNGS: Clear. Hyperinflated lungs suggesting underlying COPD. Chronic interstitial fibrotic changes are seen. PLEURAL SPACE: No pleural effusion or pneumothorax. BONE:Within normal limits for the patient's age. OTHER FINDINGS:Normal. IMPRESSION: No acute pulmonary findings. DATA REPOSITORY: RADIATION DOSE DELIVERED:
[2020-01-03 12:47] LABS: Bacteria Rare HPF (Negative); C & S Indicated? No; Casts 0-2 Hyaline LPF (Negative); Crystals Negative HPF (Negative); Epithelial Cells Rare HPF (Negative); Mucus Trace (Negative); Other Cells Rare Renal (Negative); RBC 0-2 HPF (0-2)
--- NOTE | 2020-01-03 18:17 | NUR.NOTE ---
spoke with daughter, Simran, patient remains nauseous. advised her to bring mom back if she felt she needed to be seen again. advised of signs and sxs to be alert for. daughter stated she understood. answered many questions for pt and daughter. Simran satisfied and mother (kolton) is going to attempt to rest.
[2020-01-05 17:06] LABS: Patient Race White; SARS-CoV-2 RNA Undetected (Undetected); SARS-CoV-2 Specimen Source Nasopharynx
== END 2020-01-03 13:32 | disposition home or self-care (01) ==
PROVIDERS: Emergency Provider Physician Assistant; PCP Nurse Practitioner Family
DX: R05 Cough (principal); R09.82 Postnasal drip; R50.9 Fever, unspecified; J02.9 Acute pharyngitis, unspecified; Z03.818 Encounter for observation for suspected exposure to other biological agents ruled out; J44.9 Chronic obstructive pulmonary disease, unspecified; F17.210 Nicotine dependence, cigarettes, uncomplicated; I10 Essential (primary) hypertension
CPT/HCPCS: 36415; 80053; 87449; 87880; 99284; U0003; 71045; 81003; 81015; 85025; 87081; 99285

== ENCOUNTER 2020-02-21 08:01 | Emergency (ER) | payer MEDICARE, MEDICAID, SELFPAY ==
[2020-02-21] VITALS (26 sets, daily range): BP systolic 116–133; BP diastolic 62–76; PULSE 77–88; RESP 15–31; TEMP 37; O2SAT 89–98
--- NOTE | 2020-02-21 08:15 | DI.RAD_ITS ---
EXAM: XR PORTABLE CHEST AP CLINICAL HISTORY: cough. TECHNIQUE: 2D digital imaging was performed. COMPARISON: CR XR PORTABLE CHEST AP from 01/03/2020 FINDINGS: There are chest leads in place. Heart size is normal. The mediastinum is not widened. No new infil trates in the left lung. Slightly increased markings in the right infrahilar region were noted. No pulmonary edema. No pleural effusions. No pneumothorax. IMPRESSION: Slightly increased markings right lower lobe. Recommend upright PA and lateral views when clinically possible. DATA REPOSITORY: RADIATION DOSE DELIVERED:
[2020-02-21] MEDS: Normal Saline Flush 10 ML SYR IVP (08:25)
--- NOTE | 2020-02-21 08:33 | ED.GENADUL_ITS ---
Discharge Plan Disposition Patient Disposition: HOME Condition: Stable Discharge Details Clinical Impression: Pneumonia Primary Care Provider: Oj Blakely ED Provider: Cesario Ball Home Meds and New Rx's Prescriptions: New levofloxacin 500 mg tablet 500 mg PO DAILY Qty: 4 RF: 0 Continued clobetasol 0.05 % cream 1 applic TP DAILY PRNRF: 0 betamethasone dipropionate 0.05 % cream 1 applic TP BID RF: 0 hydrocortisone 2.5 % cream 1 applic TP BID PRNRF: 0 cetirizine [All Day Allergy (cetirizine)] 10 mg tablet 20 mg PO DAILY RF: 0 atorvastatin 10 mg tablet 10 mg PO QHS RF: 0 ropinirole 0.25 mg Tablet 0.25 - 0.5 mg PO HS PRNRF: 0 oxybutynin chloride 5 mg Tablet 2.5 mg PO BID PRNRF: 0 Ensure Liquid 9 ml PO QID RF: 0 Restasis 0.05 % Dropperette 1 drp OPHTHALMIC (EYE) Q12H RF: 0 aspirin [Adult Aspirin Regimen] 81 mg tablet,delayed release (DR/EC) 81 mg PO DAILY RF: 0 levothyroxine 75 mcg Tablet 75 mcg PO DAILY RF: 0 ibuprofen [Advil] 200 mg tablet 600 mg PO Q6H PRNRF: 0 fluticasone propionate 50 mcg/actuation [place],Suspension 1 spray INTRANASAL BID RF: 0 (DME) Poise Pads 1 EACH pad 1 ea Miscellaneous PRN RF: 0 lorazepam 1 MG tablet 1 mg PO TID RF: 0 meloxicam 7.5 mg tablet 15 mg PO DAILY RF: 0 budesonide [Rhinocort Allergy] 32 mcg/actuation spray,non-aerosol 1 spray intranasal DAILY Qty: 8.43 RF: 0 cetirizine 10 mg tablet 20 mg PO RF: 0 tramadol 50 mg tablet 50 mg PO BID PRN PRNRF: 0 mometasone 50 mcg/actuation spray,non-aerosol 1 spray INTRANASAL BID RF: 0 hydrocortisone 2.5 % Cream 1 applic TOPICAL BID PRNRF: 0 montelukast 10 mg tablet 10 mg PO DAILY RF: 0 Discharge Instructions Instructions: Acute Cough (ED) Additional Instructions: X-ray suspicious for potential early pneumonia. Levaquin as directed. There is no clear indication at this time for antibiotic therapy. Plenty of fluids to avoid dehydration, [id number] medications for symptomatic control, and I strongly recommend filling your nasal spray at the pharmacy for your ongoing allergy symptoms and postnasal drip. As we discussed, your Covid test is pending, I recommend quarantining until you receive your test results assuming they are negative. I do recommend reaching out your primary care provider later today or tomorrow for prompt outpatient reevaluation. Medical Decision Making This is an 84-year-old female with past medical history of COPD, CAD, postnasal drip, seasonal allergies, AAA, anxiety, presenting to the ER for evaluation of potential fever. She states that she ran errands yesterday, noted a fever last night of 101, this morning 105. She questions if she was exposed to any illness yesterday. She is otherwise asymptomatic. She does have chronic allergies, postnasal drip, rhinorrhea, dry cough that she states is at baseline and she has run out of her nasal spray 2 days ago. The nasal spray is waiting at her pharmacy, she has just not filled her prescription. She has not taken any antipyretic today, or yesterday for that matter, and is afebrile here. C linically she appears well, nontoxic. Afebrile, O2 sats 94% on room air, pulse 83, blood pressure 124/76. Given her age and multiple committees, I do believe obtaining CBC, CMP, chest x-ray, Covid swab, urinalysis is all reasonable. I see no clear indication for blood cultures. I see no clear indication for initiating antibiotic therapy prior to labs resulting, IV fluid, neb treatment, etc. Laboratory values reveal no specific minimal leukocytosis at 10.99. Urinalysis without obvious infection. Covid pending. I read the chest x-ray as no obvious infiltrate however upon reviewing the ra diology report, they report slightly increased markings right lower lobe. Recommend upright PA and lateral views when clinically possible. Given she is a PUI, only single view x-rays are being obtained, given this will treat with Levaquin for potential early pneumonia. First dose of Levaquin given here, will give a prescription for the next 4 days. Patient appears well, nontoxic, feels comfortable with discharge home. We are awaiting for transportation to be arranged. She was encouraged to return to the ER for new or worsening symptoms, otherwise follow-up with her primary care provider in the very near future. Recommend calling them later today or tomorrow to make an appointment with the next 5-7 days Medical Records Medical records reviewed: Yes I reviewed the patient's medical records. Lab Data Lab results reviewed: Yes I reviewed the patient's lab results. Lab results narrative: Laboratory Tests Range/Units 02/21/20 02/21/20 02/21/20 08:25 08:25 08:45 WBC (4.4-10.8) 10^3/uL 10.99 H RBC (3.93-5.22) 10^6/uL 4.61 Hgb (11.2-15.7) g/dL 14.3 Hct (36.0-46.0) % 44.0 MCV (80-95) fL 95.4 H MCH (27.0-33.0) pg 31.0 MCHC (32.0-36.0) % 32.5 RDW (11.7-14.6) % 13.5 Plt Count (130-400) 10^3/uL 180 MPV (8.0-11.0) fL 10.4 Immature Gran % 0.3 Neutrophils % 77.4 Lymphocytes % 9.8 Monocytes % 12.0 Eosinophils % 0.3 Basophils % 0.2 Nucleated RBC % % 0 Absolute Neutrophils (1.2-6.7) 10^3/uL 8.51 H Absolute Lymphocytes (1.2-3.4) 10^3/uL 1.08 L Absolute Monocytes (0.1-0.8) 10^3/uL 1.32 H Absolute Eosinophils (0.0-0.7) 10^3/uL 0.03 Absolute Basophils (0.0-0.2) 10^3/uL 0.02 Sodium (136-145) mmol/L 137 Potassium (3.5-5.1) mmol/L 3.4 L Chloride (98-107) mmol/L 102 Carbon Dioxide (21.0-32.0) mmol/L 30.6 Anion Gap (3-11) mmol/L 4.4 BUN (7-18) mg/dL 13 Creatinine (0.55-1.02) mg/dL 0.76 Estimated GFR/1.73 m2 (mL/min/1.73m2) >= 60.00 Glucose (74-106) mg/dL 110 H Calcium (8.5-10.1) mg/dL 8.6 Total Bilirubin (0.2-1.0) mg/dL 1.0 AST (15-37) U/L 17 ALT (14-59) U/L 20 Alkaline Phosphatase (46-116) U/L 95 Total Protein (6.4-8.2) g/dL 6.8 Albumin (3.4-5.0) g/dL 3.7 TSH (0.36-3.74) uIU/mL 2.93 Urine Color (Yellow) Yellow Urine Clarity (Clear) Clear Urine pH (5-8) 7.0 Ur Specific [place] (1.005-1.025) 1.020 Urine Protein (Negative) mg/dL 30 H Urine Ketones (Negative) mg/dL Negative Urine Blood (Negative) Negative Urine Nitrite (Negative) Negative Urine Bilirubin (Negative) Negative Urine Urobilinogen (Up TO 0.2) EU/dL 1.0 H Ur Leukocyte Esterase (Negative) Negative Urine RBC (0-2) HPF 0-2 Urine WBC (0-5) HPF 0-2 Ur Epithelial Cells (Negative) HPF Rare Urine Crystals (Negative) HPF Negative Urine Bacteria (Negative) HPF Rare Urine Casts (Negative) LPF Negative Urine Mucus (Negative) Trace Ur Culture Indicated? No Urine Glucose (Negative) mg/dL Negative COVID-19 PCR Nasopharyn COVID-19 PCR Ref Test Perform Site Range/Units 02/21/20 08:55 WBC (4.4-10.8) 10^3/uL RBC (3.93-5.22) 10^6/uL Hgb (11.2-15.7) g/dL Hct (36.0-46.0) % MCV (80-95) fL MCH (27.0-33.0) pg MCHC (32.0-36.0) % RDW (11.7-14.6) % Plt Count (130-400) 10^3/uL MPV (8.0-11.0) fL Immature Gran % Neutrophils % Lymphocytes % Monocytes % Eosinophils % Basophils % Nucleated RBC % % Absolute Neutrophils (1.2-6.7) 10^3/uL Absolute Lymphocytes (1.2-3.4) 10^3/uL Absolute Monocytes (0.1-0.8) 10^3/uL Absolute Eosinophils (0.0-0.7) 10^3/uL Absolute Basophils (0.0-0.2) 10^3/uL Sodium (136-145) mmol/L Potassium (3.5-5.1) mmol/L Chloride (98-107) mmol/L Carbon Dioxide (21.0-32.0) mmol/L Anion Gap (3-11) mmol/L BUN (7-18) mg/dL Creatinine (0.55-1.02) mg/dL Estimated GFR/1.73 m2 (mL/min/1.73m2) Glucose (74-106) mg/dL Calcium (8.5-10.1) mg/dL Total Bilirubin (0.2-1.0) mg/dL AST (15-37) U/L ALT (14-59) U/L Alkaline Phosphatase (46-116) U/L Total Protein (6.4-8.2) g/dL Albumin (3.4-5.0) g/dL TSH (0.36-3.74) uIU/mL Urine Color (Yellow) Urine Clarity (Clear) Urine pH (5-8) Ur Specific [place] (1.005-1.025) Urine Protein (Negative) mg/dL Urine Ketones (Negative) mg/dL Urine Blood (Negative) Urine Nitrite (Negative) Urine Bilirubin (Negative) Urine Urobilinogen (Up TO 0.2) EU/dL Ur Leukocyte Esterase (Negative) Urine RBC (0-2) HPF Urine WBC (0-5) HPF Ur Epithelial Cells (Negative) HPF Urine Crystals (Negative) HPF Urine Bacteria (Negative) HPF Urine Casts (Negative) LPF Urine Mucus (Negative) Ur Culture Indicated? Urine Glucose (Negative) mg/dL COVID-19 PCR Cancelled Nasopharyn COVID-19 PCR Cancelled Ref Test Perform Site Cancelled HPI General Mode of arrival: EMS . Date/Time Provider Initiated Documentation: 02/21/20 08:08 . Limitations to Documentation: no limitations . Information obtained by: patient and EMS . HPI Narrative: Is an 84-year-old female with past medical history that includes abdominal aortic aneurysm, allergic rhinitis, anxiety, CAD, COPD, current smoker, thyroid disease, presenting to the ER via ambulance for evaluation. She reports that yesterday she was out running errands, went to the bank, and is concerned that she could have been exposed to an illness although denies any obvious exposures. She reports that she has a history of COPD, continues to smoke cigarettes, and has ongoing dry cough, nasal congestion, postnasal drip. She ran out of her nasal spray 2 days ago, was supposed to steroid yesterday, but was unable to. She decided to check her temperature last night and noted that her temperature was 101. At that time she was otherwise asymptomatic. She states that this morning she checked her temperature again and it was 105, again she was asymptomatic. She is concerned about her elevated temperature that came to the ER for further evaluation. She denies taking any antipyretic. She denies any headache, chest pain, shortness of breath, skin rash, abdominal pain, nausea, vomiting diarrhea, dysuria. Related Data Home Medications Medication Instructions Recorded Confirmed lorazepam 1 mg PO TID 12/26/12 02/21/20 Poise Pads ea 07/08/16 09/07/19 atorvastatin 10 mg tablet 10 mg PO QHS 05/31/18 02/21/20 betamethasone dipropionate 0.05 % 1 applic TP BID 05/31/18 02/21/20 topical cream cetirizine 10 mg tablet 20 mg PO DAILY tab 05/31/18 02/21/20 clobetasol 0.05 % topical cream 1 applic TP DAILY PRN 05/31/18 02/21/20 hydrocortisone 2.5 % topical cream 1 applic TP BID PRN 05/31/18 02/21/20 Ensure 9 ml PO QID 02/15/19 02/21/20 Restasis 1 drp OPHTHALMIC (EYE) Q12H 02/15/19 02/21/20 oxybutynin chloride 2.5 mg PO BID PRN 02/15/19 02/21/20 ropinirole 0.25 - 0.5 mg PO HS PRN 02/15/19 02/21/20 aspirin 81 mg tablet,delayed 81 mg PO DAILY 02/27/19 02/21/20 release levothyroxine 75 mcg PO DAILY 02/27/19 02/21/20 ibuprofen 200 mg tablet 600 mg PO Q6H PRN tab 05/31/19 02/21/20 budesonide [Rhinocort Allergy] 1 spray INTRANASAL DAILY #8.43 ml 01/03/20 02/21/20 fluticasone propionate 1 spray INTRANASAL BID 01/03/20 02/21/20 meloxicam 15 mg PO DAILY 01/03/20 02/21/20 cetirizine 20 mg PO 02/21/20 hydrocortisone 1 applic TOPICAL BID PRN 02/21/20 02/21/20 levofloxacin 500 mg PO DAILY #4 tab 02/21/20 mometasone 1 spray INTRANASAL BID 02/21/20 02/21/20 montelukast 10 mg PO DAILY 02/21/20 02/21/20 tramadol 50 mg PO BID PRN PRN 02/21/20 02/21/20 Previous Rx's Medication Instructions Recorded budesonide [Rhinocort Allergy] 1 spray INTRANASAL DAILY #8.43 ml 01/03/20 levofloxacin 500 mg PO DAILY #4 tab 02/21/20 Allergies Allergy/AdvReac Type Severity Reaction Status Date / Time meperidine HCl [From Demerol] AdvReac Severe made me Unverified 02/21/20 08:22 very, very sick wheat AdvReac Severe Diarrhea Unverified 02/21/20 08:22 azithromycin AdvReac Intermediate gets sick Unverified 02/21/20 08:22 Penicillins AdvReac Mild heart Unverified 02/21/20 08:22 races,rash WHEAT BREAD Allergy Intermediate Uncoded 02/21/20 08:22 General Stated Complaint: GenMedical ENRIQUE: 3 Review of Systems Constitutional Constitutional: Denies chills, Denies fatigue, Reports fever(s), Denies headache(s), Denies malaise and Denies weakness ENT Ears, Nose, Mouth, and Throat: Denies headache(s), Reports nasal congestion, Denies neck pain and Denies sore throat Cardiovascular Cardiovascular: Denies chest pain and Denies dyspnea Respiratory Respiratory: Reports cough (Chronic), Denies dyspnea and Denies wheezing Gastrointestinal Gastrointestinal: Denies abdominal pain, Denies nausea and Denies vomiting Genitourinary Genitourinary: Denies dysuria Musculoskeletal Musculoskeletal: Denies neck pain Integumentary/Breasts Skin/Breast: Denies rash Neurologic Neurologic: Denies headache(s) and Denies weakness Endocrine Endocrine: Denies fatigue Allergic/Immunologic Allergic/Immunologic: Denies wheezing [facility] Medical History AAA (abdominal aortic aneurysm) Abnormal mammogram of right breast Adenomatous colon polyp Allergic rhinitis Anxiety Benzodiazepine dependence CAD (coronary artery disease) *Possible* Celiac disease Chronic leukopenia Conductive hearing loss, external ear (05/09/15) Dental infection Disorder of left pinna Diverticulosis Dizziness Elevated LFTs Encounter for screening mammogram for breast cancer Gait instability Hearing deficit Hiatal hernia Hypothyroid Impacted cerumen of both ears Knee pain, left Leg cramps Low back pain Lung nodule left lower lobe Lupus erythematosus Mixed conductive and sensorineural hearing loss of left ear with restricted hearing of right ear (12/10/16) Neck pain S/P fall Onychomycosis Nail Osteoporosis Otalgia, left ear Panic disorder Preventative health care Right bundle branch block Sensorineural hearing loss (SNHL) of right ear with restricted hearing of left ear (12/10/16) Sensorineural hearing loss, bilateral (11/04/15) Skin rash Spinal stenosis Syncope Tobacco use Trigger thumb, left thumb Urinary incontinence Uterine fibroid Vitamin D deficiency Weight loss, abnormal Surgical History Cholecystectomy Colonoscopy - MAC (03/20/16) Family History Father No problems noted. Other Colon cancer Social History Smoking/Tobacco Use Status: Current every day Tobacco Type: cigarettes Smoking risk assessment performed?: Yes Alcohol Intake: never Drug use: Never Substance use type: does not use [place]a/Shinto: Adventist Do you feel safe at home: Yes Do you feel safe in your relationship?: Yes Exam Const General: cooperative, healthy appearing, comfortable and no acute distress Orientation: alert, awake and oriented x3 HENMT Head: normal to inspection, normocephalic and atraumatic Ears: external ears normal, TM's normal bilaterally and EAC's normal General nose exam: external nose normal and nasal discharge clear Face and sinus: normal facial exam Mouth: moist mucous membranes Throat: posterior oropharynx normal Eyes General: appearance normal, both eyes and all related structures Alignment and Position: alignment normal Periorbital: periorbital findings normal Eyelids: eyelids normal Conjunctivae: conjunctivae normal Sclera: sclerae normal Cornea: corneas normal Neck Neck: normal visual inspection, full ROM, no meningeal signs, trachea midline and supple Resp Effort & Inspection: normal respiratory effort, able to speak in complete sentences and cough (Occasional mild dry cough) Auscultation: clear to auscultation bilaterally Cardio Rate: regular rate Rhythm: regular rhythm GI Palpation: soft and nontender Back/Spine/Pelvis Back: No back tenderness Skin General skin exam: no rashes or lesions noted Neuro General: patient alert, patient awake, moves all extremities and no focal motor deficits Cognition: normal cognition Speech: speech normal Motor: muscle tone normal throughout Sensory Exam: no sensory deficits noted Extrem General: normal to inspection, full ROM, capillary refill normal, no pedal edema and no calf tenderness Psych Appearance: grossly normal Mental Status: mental status grossly normal Course Vital Signs Vital signs: Vital Signs Temperature 37.0 C 02/21/20 08:09 Pulse 84 02/21/20 08:09 Respiratory Rate 24 02/21/20 08:09 Blood Pressure 124/76 02/21/20 08:09 Pulse Oximetry 93 02/21/20 08:09 Temperature 37.0 C 02/21/20 08:09 Temperature Source Oral 02/21/20 08:09 Pulse 84 02/21/20 08:09 Respiratory Rate 24 02/21/20 08:09 Respiratory Effort Non-Labored 02/21/20 08:09 Blood Pressure 124/76 02/21/20 08:09 Blood Pressure Position Supine 02/21/20 08:09 Pulse Oximetry 93 02/21/20 08:09 Oxygen Delivery Method Room Air 02/21/20 08:09 Oxygen Flow Rate 0 02/21/20 08:09 Pain Level 0 02/21/20 08:09
[2020-02-21] MEDS: Normal Saline 1,000 ML 1000 ML IV (08:35)
[2020-02-21 08:48] LABS: Abs Immature Grans 0.03 10^3/uL (0.0-0.06); Absolute Basophil Count 0.02 10^3/uL (0.0-0.2); Absolute Eosinophil Count 0.03 10^3/uL (0.0-0.7); Absolute Lymphocyte Count 1.08 10^3/uL (1.2-3.4); Absolute Monocyte Count 1.32 10^3/uL (0.1-0.8); Absolute Neutrophil Count 8.51 10^3/uL (1.2-6.7); Basophils % 0.2; Eosinophils % 0.3; HGB 14.3 g/dL (11.2-15.7); Immature Grans % 0.3; Lymphocytes % 9.8; MCHC 32.5 % (32.0-36.0); MCV 95.4 fL (80-95); MPV 10.4 fL (8.0-11.0); Neutrophils % 77.4; Nucleated RBC 0 %; Platelet Count 180 10^3/uL (130-400); RBC 4.61 10^6/uL (3.93-5.22); RDW 13.5 % (11.7-14.6); RDW-SD 47.8 fL; WBC 10.99 10^3/uL (4.4-10.8)
[2020-02-21 08:57] LABS: Bilirubin Negative (Negative); Blood Negative (Negative); Clarity Clear (Clear); Glucose Negative (Negative); Ketones Negative (Negative); Leukocyte Esterase Negative (Negative); Nitrite Negative (Negative)
[2020-02-21 09:04] LABS: Bacteria Rare HPF (Negative); C & S Indicated? No; Casts Negative LPF (Negative); Crystals Negative HPF (Negative); Epithelial Cells Rare HPF (Negative); Mucus Trace (Negative); RBC 0-2 HPF (0-2); WBC 0-2 HPF (0-5)
[2020-02-21 09:10] LABS: ALT 20 U/L (14-59); AST 17 U/L (15-37); Albumin 3.7 g/dL (3.4-5.0); Alkaline Phosphatase 95 U/L (46-116); Anion Gap 4.4 mmol/L (3-11); BUN 13 mg/dL (7-18); CO2 30.6 mmol/L (21.0-32.0); CREATININE 0.76 mg/dL (0.55-1.02); Calcium 8.6 mg/dL (8.5-10.1); Chloride 102 mmol/L (98-107); Glucose 110 mg/dL (74-106); Potassium 3.4 mmol/L (3.5-5.1); Sodium 137 mmol/L (136-145); TSH (W/Ref FT4) 2.93 uIU/mL (0.36-3.74); Total Protein 6.8 g/dL (6.4-8.2)
[2020-02-21] MEDS: levoFLOXacin 500 MG, levoFLOXacin 250 MG 750 MG PO (11:30)
[2020-02-23 12:56] LABS: COVID-19 RT-PCR Result NEGATIVE (Negative)
== END 2020-02-21 11:45 | disposition home or self-care (01) ==
PROVIDERS: Emergency Provider Physician Assistant; PCP Nurse Practitioner Family
DX: J18.8 Other pneumonia, unspecified organism (principal); Z03.818 Encounter for observation for suspected exposure to other biological agents ruled out; J44.9 Chronic obstructive pulmonary disease, unspecified; F17.210 Nicotine dependence, cigarettes, uncomplicated
CPT/HCPCS: 36415; 80053; 96360; 96361; 99284; U0003; 71045; 81003; 81015; 84443; 85025; 99285

== ENCOUNTER 2020-03-01 01:25 | Outpatient (CLI) | payer MEDICARE, MEDICAID, SELFPAY ==
--- NOTE | 2020-03-01 | DI.US_ITS ---
EXAM: US AAA DIAGNOSTIC CLINICAL HISTORY: F/U AAA,I71.4 COMPARISON: US US AAA diagnostic from 05/02/2018 FINDINGS: Abdominal Aorta: Proximal: 2.6 cm Mid: 2.5 cm Distal: 4.8 cm Iliacs: Right: 1.8 cm Left: 1.6 cm . IMPRESSION: 4.8 centimeter fusiform-appearing distal abdominal aortic aneurysm, increasing from the previous exam where it measured 4.1 cm. DATA REPOSITORY:
== END 2020-03-01 01:45 ==
PROVIDERS: PCP Nurse Practitioner Family; Visit Provider Nurse Practitioner Family
DX: I71.4 Abdominal aortic aneurysm, without rupture (principal)
CPT/HCPCS: 76775

== ENCOUNTER 2020-04-29 14:17 | Outpatient (REF) | payer MEDICARE, MEDICAID, SELFPAY ==
[2020-04-29 20:17] LABS: CREATININE 0.7 mg/dL (0.55-1.02)
== END 2020-04-29 14:18 | disposition home or self-care (01) ==
LOC: NCHCN 14:17
PROVIDERS: PCP Nurse Practitioner Family; Visit Provider Nurse Practitioner Family
DX: I71.4 Abdominal aortic aneurysm, without rupture (principal)
CPT/HCPCS: 82565

== ENCOUNTER 2020-05-06 00:26 | Outpatient (CLI) | payer MEDICARE, MEDICAID, SELFPAY ==
--- NOTE | 2020-05-06 | DI.CT_ITS ---
EXAM: CT ABDOMEN PELVIS CTA INDICATION: ABD AORTIC ANEURYSM, I71.4. COMPARISON: CT ABD PELVIS WITH CONTRAST from 09/11/2017 TECHNIQUE: FINDINGS: CT examination of the abdomen and pelvis was performed with a bolus infusion of 93 cc of Omnipaque 35 0. Images obtained through the lung bases are unremarkable. Note is made of multiple hepatic cysts which were present on prior examination of August 2017. There i s mild intrahepatic biliary dilatation and there is increased dilatation of the common hepatic duct a nd common bile duct since the prior examination, the common duct now measures 15 millimeters in great est diameter in comparison with 9 millimeters previously. Possibility of a distal common bile duct o bstruction would have to be raised, correlation with MRCP or ERCP suggested. Note is made of an apparent duodenal diverticulum. No focal pancreatic abnormality seen. There is an apparent posterior splenic cyst and multiple calcified splenic granulomas. Adrenals appear normal. The kidneys are unremarkable with no evidence of hydronephrosis, nephrolithiasis, or renal mass.. Ur inary bladder unremarkable. Previously described abdominal aortic aneurysm has increased in size and now measures about 4.7 x 4.7 cm in diameter. Right and left common iliac arteries measure about 15 millimeters in diameter respe ctively. No evidence leaking aneurysm. Inferior mesenteric artery not identified with certainty but the remainder of the major visceral branches appear intact with minimal wall calcification at multip le sites. No abdominal wall hernia. No abdominal or pelvic adenopathy. PULPER TENDER structures appear intact for age. Appendix is normal. No evidence of diverticulitis or bowel obstruction. IMPRESSION: Interval increase in size of common bile duct which now measures 15 millimeters in diameter, possibil ity of a distal common duct obstruction is raised, correlation with MRCP or ERCP should be considered . 4.7 x 4.7 cm in diameter abdominal aortic aneurysm, this is increased in size from about 3.9 x 3.7 cm in diameter on prior study of August 2017. RADIATION DOSE DELIVERED: 527.55mGy.cm Total DLP 527.55mGy.cm Total DLP
[2020-05-06] MEDS: Omnipaque 350 MG/ML 100 ML BTL IV (13:55)
[2020-05-06] MEDS: Normal Saline - Diluent 50 ML VIAL IV (13:56)
== END 2020-05-06 00:27 ==
LOC: DI 00:27
PROVIDERS: PCP Nurse Practitioner Family; Visit Provider Surgery
DX: I71.4 Abdominal aortic aneurysm, without rupture (principal)
CPT/HCPCS: 74174; J3490

== ENCOUNTER 2020-05-31 08:33 | Emergency (ER) | payer MEDICARE, MEDICAID, SELFPAY ==
--- NOTE | 2020-05-31 08:30 | RT.EKG_ITS ---
APPROVED REPORT Exam: Resting ECG Patient Location: E HR:73 bpm ECG Measurements Heart Rate 73 AXIS WA 137 P 79 QRSd 141 QRS 65 QT 430 T 16 QTc 475 Conclusion Sinus rhythm...normal P axis, V-rate 60- 99 Right bundle branch block...QRSd>120, terminal axis(90,270) Physician: unchanged from 08/31/16
[2020-05-31 08:34] VITALS: BP 136/75; PULSE 73; RESP 23; TEMP 37.2; O2SAT 94
--- NOTE | 2020-05-31 08:45 | DI.CT_ITS ---
EXAM: CT ABDOMEN PELVIS CTA CLINICAL HISTORY: hx of infrarental AAA 4.x 4.7 05/12, worsening pain. TECHNIQUE: Imaging Protocol: Axial CT angiography was performed with multi-slice acquisition and m ulti-planar and/or 3D reconstructions. CONTRAST MATERIAL: Intravenous: Omnipaque 350 Contrast volume: 59 cc Oral: no COMPARISON: CT ABD PELVIS WITH CONTRAST from 09/11/2017 CT ABD PELVIS WITH CONTRAST from 09/11/[address] ABDOMEN PELVIS CTA from 05/06/[address] ABDOMEN PELVIS CTA from 05/06/2020 FINDINGS: The lung bases are clear. There has been no change in the size or appearance of the infrarenal saccu lar abdominal aortic aneurysm, measuring 4.7 cm in diameter. A small amount of mural thrombus is not ed, unchanged. There is calcification at the or origin of this of the celiac and superior mesenteric arteries but no significant stenosis.. There is no evidence of leak. There is again noted to be he diana calcification along the aorta and iliac arteries. The lung bases are clear. The heart size is normal. There are stable liver cysts. The patient is s tatus post cholecystectomy. There is stable dilatation of the common bile duct. There is a there is a small duodenal diverticulum adjacent to the distal common bile duct. No obstructing stone is seen . Cyst is and calcifications are again noted in the spleen. No renal calculi or hydronephrosis is s een. The bladder and uterus are unremarkable. There is prominent diverticulosis of the sigmoid but no diverticulitis. The appendix appears normal. There is no free air or free fluid. There is no adriana wel wall thickening or abnormal distention.. No lumbar compression fractures are seen. Degenerative changes are again noted. IMPRESSION: Stable infrarenal abdominal or aortic aneurysm measuring 4.7cm. No evidence of leak. Branch vessels are patent. RADIATION DOSE DELIVERED: 586.4mGy.cm Total DLP DATA REPOSITORY: All CT scans at this facility are submitted to the National Radiology Data Registry (NRDR) Dose Index Registry (DIR) with the [employer] (ACR). RADIATION OPTIMIZATION: All CT scans at this facility use at least one of these dose optimization te chniques: automated exposure control; mA and/or kV adjustment per patient size (includes targeted exa ms where dose is matched to clinical indication); or iterative reconstruction.
[2020-05-31 08:48] VITALS: BP 132/74; PULSE 72; PULSE 74; RESP 21; O2SAT 94
[2020-05-31 09:00] VITALS: PULSE 72; RESP 22; O2SAT 95
[2020-05-31 09:01] VITALS: BP 129/76; PULSE 71; PULSE 72; RESP 23; O2SAT 95
--- NOTE | 2020-05-31 09:07 | ED.GENADUL_ITS ---
Discharge Plan Disposition Patient Disposition: HOME Condition: Good Discharge Details Clinical Impression: Back pain Primary Care Provider: Oj Blakely ED Provider: Nessa Castrejon Home Meds and New Rx's Prescriptions: New lidocaine [Lidoderm] 5 % adhesive patch,medicated 1 patch topical DAILY Qty: 15 RF: 0 No Action cetirizine [All Day Allergy (cetirizine)] 10 mg tablet 20 mg PO DAILY RF: 0 atorvastatin 10 mg tablet 10 mg PO QHS RF: 0 Ensure Liquid 9 ml PO QID RF: 0 Restasis 0.05 % Dropperette 1 drp OPHTHALMIC (EYE) Q12H RF: 0 aspirin [Adult Aspirin Regimen] 81 mg tablet,delayed release (DR/EC) 81 mg PO DAILY RF: 0 levothyroxine 75 mcg Tablet 75 mcg PO DAILY RF: 0 ibuprofen [Advil] 200 mg tablet 600 mg PO Q6H PRNRF: 0 (DME) Poise Pads 1 EACH pad 1 ea Miscellaneous PRN RF: 0 lorazepam 1 MG tablet 1 mg PO TID RF: 0 meloxicam 7.5 mg tablet 15 mg PO DAILY RF: 0 Discharge Instructions Instructions: Back Pain (ED) Additional Instructions: Warm compresses as needed for pain Lidoderm patches, 12 hours on, 12 hours off Take Tylenol as needed for pain, 650 mg to 1000 g every 6 hours You may take very low-dose ibuprofen, 200 to 400 mg every 8 hours with food for no more than 3 days Follow-up with your doctor in 1 to 2 days for reevaluation with persistent pain Discharge Data Discharge Date/Time-TO BE ENTERED AT DEPARTURE: 05/31/20 11:20 Medical Decision Making Patient is well in appearance She declines any medication She is ambulatory with steady, stable gait Her CT abdomen and pelvis does not show acute pathology, stable 4.7 cm abdominal aortic aneurysm without leak per radiology I asked if she felt comfortable being discharged and she states that she does not Urinalysis and labs are reassuring She will need close outpatient follow-up She is given low threshold to return with new or worsening complaints I did review patient's prior MRI which did not show remarkable level present any significant abnormality, rather degenerative changes and neuroforaminal stenosis Recheck with PCP tomorrow recommended Differential Diagnosis Differential Diagnosis: Abdominal aortic dissection, lumbar radiculopathy, chronic back pain, UTI Medical Records Medical records reviewed: Yes I reviewed the patient's medical records. Lab Data Lab results reviewed: Yes I reviewed the patient's lab results. HPI This 84-year-old female with history of chondrodermatitis, sensorineural hearing loss, sacroiliitis, AAA, cholecystectomy, neuroforaminal stenosis with neurogenic claudication presents with report of back pain and abdominal pain which started approximately 3 days prior to arrival. Patient denies prior history of similar pain in the past. She denies any fever chills or urinary symptoms. She denies groin numbness or radiation of pain down her legs. She denies any chest pain or shortness of breath. Patient states that the pain is very vacillated with movement but is also present at rest. She states but she had such significant pain today she could not walk her dog which is unusual for her. She does states she has a known history of AAA which is scheduled for surgery in approximately 1 month. General Date/Time Provider Initiated Documentation: 05/31/20 08:41 . Related Data Home Medications Medication Instructions Recorded Confirmed lorazepam 1 mg PO TID 12/26/12 05/31/20 Poise Pads ea 07/08/16 09/07/19 atorvastatin 10 mg tablet 10 mg PO QHS 05/31/18 05/31/20 cetirizine 10 mg tablet 20 mg PO DAILY tab 05/31/18 05/31/20 Ensure 9 ml PO QID 02/15/19 05/31/20 Restasis 1 drp OPHTHALMIC (EYE) Q12H 02/15/19 05/31/20 aspirin 81 mg tablet,delayed 81 mg PO DAILY 02/27/19 05/31/20 release levothyroxine 75 mcg PO DAILY 02/27/19 05/31/20 ibuprofen 200 mg tablet 600 mg PO Q6H PRN tab 05/31/19 05/31/20 meloxicam 15 mg PO DAILY 01/03/20 05/31/20 lidocaine [Lidoderm] 1 patch TOPICAL DAILY #15 ea 05/31/20 Previous Rx's Medication Instructions Recorded lidocaine [Lidoderm] 1 patch TOPICAL DAILY #15 ea 05/31/20 Allergies Allergy/AdvReac Type Severity Reaction Status Date / Time meperidine HCl [From Demerol] AdvReac Severe made me Unverified 05/31/20 08:37 very, very sick wheat AdvReac Severe Diarrhea Unverified 05/31/20 08:37 azithromycin AdvReac Intermediate gets sick Unverified 05/31/20 08:37 Penicillins AdvReac Mild heart Unverified 05/31/20 08:37 races,rash WHEAT BREAD Allergy Intermediate Uncoded 05/31/20 08:37 General Stated Complaint: Nk/Back Pain ENRIQUE: 3 Review of Systems Narrative: Review of systems negative x7 aside from where indicated in HPI All systems reviewed & are unremarkable except as noted in HPI and below PFSH Medical History AAA (abdominal aortic aneurysm) Abnormal mammogram of right breast Adenomatous colon polyp Allergic rhinitis Anxiety Benzodiazepine dependence CAD (coronary artery disease) *Possible* Celiac disease Chronic leukopenia Conductive hearing loss, external ear (05/09/15) Dental infection Disorder of left pinna Diverticulosis Dizziness Elevated LFTs Encounter for screening mammogram for breast cancer Gait instability Hearing deficit Hiatal hernia Hypothyroid Impacted cerumen of both ears Knee pain, left Leg cramps Low back pain Lung nodule left lower lobe Lupus erythematosus Mixed conductive and sensorineural hearing loss of left ear with restricted hearing of right ear (12/10/16) Neck pain S/P fall Onychomycosis Nail Osteoporosis Otalgia, left ear Panic disorder Preventative health care Right bundle branch block Sensorineural hearing loss (SNHL) of right ear with restricted hearing of left ear (12/10/16) Sensorineural hearing loss, bilateral (11/04/15) Skin rash Spinal stenosis Syncope Tobacco use Trigger thumb, left thumb Urinary incontinence Uterine fibroid Vitamin D deficiency Weight loss, abnormal Surgical History Cholecystectomy Colonoscopy - MAC (03/20/16) Family History Father No problems noted. Other Colon cancer Social History Smoking/Tobacco Use Status: Current every day Tobacco Type: cigarettes Smoking risk assessment performed?: Yes Alcohol Intake: never Drug use: Never Substance use type: does not use Francisca/Congregational: Worship Do you feel safe at home: Yes Do you feel safe in your relationship?: Yes Exam Const General: cooperative and comfortable Eyes Pupils: PERRL Neck Other: No midline tenderness Chest Chest: normal inspection of the chest Resp Effort & Inspection: normal respiratory effort Auscultation: clear to auscultation bilaterally Cardio Rate: regular rate Rhythm: regular rhythm Other: Distal pulses intact GI Other: Lower abdominal tenderness with palpation, no palpable mass, no ecchymosis, no CVA tenderness Back/Spine/Pelvis Other: Paraspinal muscle tenderness Skin General skin exam: no rashes or lesions noted Neuro General: patient oriented x3 and CN's II-XI intact bilaterally Other: Strength and sensation intact distally Extrem Other: Nontender without visible evidence of injury Course Vital Signs Vital signs: Vital Signs Temperature 37.2 C 05/31/20 08:34 Pulse 73 05/31/20 08:34 Respiratory Rate 23 05/31/20 08:34 Blood Pressure 136/75 05/31/20 08:34 Pulse Oximetry 94 05/31/20 08:34 Temperature 37.2 C 05/31/20 08:34 Temperature Source Skin 05/31/20 08:34 Pulse 73 05/31/20 08:34 Respiratory Rate 23 05/31/20 08:34 Respiratory Effort Non-Labored 05/31/20 08:45 Blood Pressure 136/75 05/31/20 08:34 Blood Pressure Position Sitting 05/31/20 08:34 Pulse Oximetry 94 05/31/20 08:34 Oxygen Delivery Method Room Air 05/31/20 08:34 Oxygen Flow Rate 0 05/31/20 08:34 Pain Level 7 05/31/20 08:54
[2020-05-31 09:23] LABS: Abs Immature Grans 0.01 10^3/uL (0.0-0.06); Absolute Basophil Count 0.02 10^3/uL (0.0-0.2); Absolute Eosinophil Count 0.13 10^3/uL (0.0-0.7); Absolute Monocyte Count 0.72 10^3/uL (0.1-0.8); Absolute Neutrophil Count 3.89 10^3/uL (1.2-6.7); Basophils % 0.3; Eosinophils % 2.2; HCT 44.7 % (36.0-46.0); HGB 14.8 g/dL (11.2-15.7); Immature Grans % 0.2; Lymphocytes % 18.7; MCH 31.4 pg (27.0-33.0); MCHC 33.1 % (32.0-36.0); MCV 94.9 fL (80-95); MPV 9.9 fL (8.0-11.0); Monocytes % 12.3; Neutrophils % 66.3; Nucleated RBC 0 %; Platelet Count 146 10^3/uL (130-400); RBC 4.71 10^6/uL (3.93-5.22); RDW 13.2 % (11.7-14.6); RDW-SD 45.9 fL; WBC 5.87 10^3/uL (4.4-10.8)
[2020-05-31] MEDS: Omnipaque 350 MG/ML 100 ML BTL IJ (09:31)
[2020-05-31] MEDS: Normal Saline - Diluent 50 ML VIAL IV (09:32)
[2020-05-31 09:33] LABS: Lipase 123 U/L (73-393)
[2020-05-31 09:40] LABS: ALT 22 U/L (14-59); AST 18 U/L (15-37); Albumin 3.8 g/dL (3.4-5.0); Alkaline Phosphatase 103 U/L (46-116); Anion Gap 6.9 mmol/L (3-11); BUN 14 mg/dL (7-18); Bilirubin, Direct 0.1 mg/dL (0.0-0.2); Bilirubin, Total 0.4 mg/dL (0.2-1.0); CO2 31.1 mmol/L (21.0-32.0); CREATININE 0.6 mg/dL (0.55-1.02); Calcium 9.1 mg/dL (8.5-10.1); Chloride 105 mmol/L (98-107); Glucose 94 mg/dL (74-106); Sodium 143 mmol/L (136-145); Total Protein 6.7 g/dL (6.4-8.2)
[2020-05-31 09:43] LABS: Troponin I < 0.05 ng/mL (<0.06)
[2020-05-31 09:51] LABS: Bilirubin Negative (Negative); Blood Negative (Negative); Clarity Clear (Clear); Glucose Negative (Negative); Ketones Negative (Negative); Leukocyte Esterase Negative (Negative); Nitrite Negative (Negative); Specific Gravity 1.015 (1.005-1.025); Urobilinogen 0.2 EU/dL (Up TO 0.2); pH 7.5 (5-8)
[2020-05-31] MEDS: Ketorolac 15 MG/ML VIAL IVP (10:33)
[2020-05-31] MEDS: Acetaminophen 500 MG TAB 1000 MG PO (10:33)
[2020-05-31 10:38] VITALS: BP 126/69; PULSE 66
== END 2020-05-31 11:20 | disposition home or self-care (01) ==
PROVIDERS: Emergency Provider Physician Assistant; PCP Nurse Practitioner Family
DX: M54.5 Low back pain (principal); R10.30 Lower abdominal pain, unspecified
CPT/HCPCS: 36415; 80048; 80076; 83690; 93005; 96374; 99285; 74174; 81003; 84484; 85025; 93010; 99284; J1885; J3490

== ENCOUNTER 2020-07-01 03:18 | Outpatient (CLI) | payer MEDICARE, MEDICAID, SELFPAY ==
[2020-07-01 19:02] LABS: COVID-19 PCR Negative (Negative)
== END 2020-07-01 03:19 | disposition home or self-care (01) ==
LOC: LBO 03:18
PROVIDERS: PCP Nurse Practitioner Family; Visit Provider Surgery
DX: Z20.822 Contact with and (suspected) exposure to COVID-19 (principal); Z01.818 Encounter for other preprocedural examination
CPT/HCPCS: 87635

== ENCOUNTER 2020-10-01 12:33 | Outpatient (REF) | payer MEDICARE, MEDICAID, SELFPAY ==
[2020-10-01 15:46] LABS: TSH 2.49 uIU/mL (0.36-3.74)
[2020-10-02 20:54] LABS: Calculated LDL 63 mg/dL (<100); Cholesterol 126 mg/dL (<200); HDL Cholesterol 51 mg/dL (40-60); Triglyceride 63 mg/dL (<150)
== END 2020-10-01 12:34 | disposition home or self-care (01) ==
LOC: LBN 12:33
PROVIDERS: PCP Nurse Practitioner Family; Visit Provider Nurse Practitioner Family
DX: E03.9 Hypothyroidism, unspecified (principal); D72.819 Decreased white blood cell count, unspecified; I71.4 Abdominal aortic aneurysm, without rupture; Z72.0 Tobacco use
CPT/HCPCS: 80061; 84443

== ENCOUNTER 2020-10-03 12:32 | Outpatient (REF) | payer MEDICARE, MEDICAID, SELFPAY ==
--- NOTE | 2020-10-03 13:30 | SKI_PTH ---
PATIENT: April Leo LOC: [facility]#:[id number] AGE/SX: 84/F ROOM: RE10/03/[address]: Jean Nugent : 1935 BED: DIS: 10/03/2020 SPEC #: [id number] RECD: 10/04/20 12:52 STATUS: TY REQ #: [id number] LYNDA: 10/03/20 13:[address]: Jean Nugent DEPT: Surgical Specimen RECD BY: Nessa Chavis ENTERED: 10/04/20 12:52 SP TYPE: SKI SHELLY DR: Oj Blakely Tissues: 1 - SKIN BIOPSY(SHAVE/PUNCH) Procedures: SKIN LEVEL 4 Comments: [id number]
== END 2020-10-03 12:33 | disposition home or self-care (01) ==
LOC: NCHCN 12:32
PROVIDERS: PCP Nurse Practitioner Family; Visit Provider Family Medicine
DX: R22.31 Localized swelling, mass and lump, right upper limb (principal); L72.0 Epidermal cyst
CPT/HCPCS: 88305

== ENCOUNTER 2020-11-08 10:26 | Outpatient (REF) | payer MEDICARE, MEDICAID, SELFPAY ==
[2020-11-09 12:46] LABS: COVID-19 RT-PCR UVMMC Result Negative (Negative)
== END 2020-11-08 10:27 | disposition home or self-care (01) ==
LOC: LBN 10:26
PROVIDERS: PCP Nurse Practitioner Family; Visit Provider Physician Assistant Medical
DX: J06.9 Acute upper respiratory infection, unspecified (principal); Z20.822 Contact with and (suspected) exposure to COVID-19
CPT/HCPCS: U0003; U0005

== ENCOUNTER 2021-03-25 15:54 | Outpatient (REF) | payer OTHER, MEDICAID, SELFPAY ==
[2021-03-25 14:52] LABS: HCT 43.4 % (36.0-46.0); HGB 13.9 g/dL (11.2-15.7); MCH 30.9 pg (27.0-33.0); MCV 96.4 fL (80-95); Platelet Count 154 10^3/uL (130-400); RDW 13.8 % (11.7-14.6); RDW-SD 48.9 fL; WBC 5.47 10^3/uL (4.4-10.8)
[2021-03-25 15:14] LABS: ALT 22 U/L (14-59); AST 17 U/L (15-37); Alkaline Phosphatase 111 U/L (46-116); Anion Gap 6.4 mmol/L (3-11); BUN 17 mg/dL (7-18); Bilirubin, Total 0.4 mg/dL (0.2-1.0); CO2 32.6 mmol/L (21.0-32.0); CREATININE 0.7 mg/dL (0.55-1.02); Calcium 8.9 mg/dL (8.5-10.1); Chloride 103 mmol/L (98-107); Glucose 112 mg/dL (74-106); Potassium 4.2 mmol/L (3.5-5.1); Sodium 142 mmol/L (136-145); Total Protein 6.3 g/dL (6.4-8.2)
== END 2021-03-25 15:55 | disposition home or self-care (01) ==
LOC: NCHCN 15:54
PROVIDERS: PCP Nurse Practitioner Family; Visit Provider Nurse Practitioner Family
DX: R63.4 Abnormal weight loss (principal)
CPT/HCPCS: 80053; 85027; 84443

== ENCOUNTER 2021-06-11 09:55 | Emergency (ER) | payer OTHER, MEDICAID, SELFPAY ==
[2021-06-11 10:08] VITALS: BP 159/72; PULSE 74; RESP 16; TEMP 36; O2SAT 96
--- NOTE | 2021-06-11 10:30 | DI.RAD_ITS ---
Exam(s) XR RIBS RT W PA LAT CHEST EXAM: XR RIBS RT W PA LAT CHEST CLINICAL HISTORY: right rib pain TECHNIQUE: 2D digital imaging was performed. COMPARISON: CT CT CHEST WO from 04/25/2019 CR XR PORTABLE CHEST AP from 01/03/2020 CR XR PORTABLE CHEST AP from 02/21/2020 FINDINGS: There are no obvious acute right rib fractures evident. No lytic rib lesions identified. No lung contusion or pneumothorax. Asymmetric density in the right lung base noted, more so than previous. This is projected over the 1 0th rib. There is no pleural effusion evident. Heart size is normal and there is no significant mediastinal widening. IMPRESSION: 1. No obvious right rib fractures evident. Also no obvious rib lesions. 2. Possible nodular infiltrate in the right lung base noted. No pneumothorax. No pleural effusions. DATA REPOSITORY: RADIATION DOSE DELIVERED:
--- NOTE | 2021-06-11 11:30 | ED.GENADUL_ITS ---
Discharge Plan Disposition Patient Disposition: HOME Condition: Stable Discharge Details Clinical Impression: Chest wall contusion Primary Care Provider: Oj Blakely ED Provider: Nessa Castrejon Home Meds and New Rx's Prescriptions: New hydrocodone-acetaminophen 5-325 mg tablet 1 tab PO BID PRNQty: 8 0RF lidocaine [Lidoderm] 5 % adhesive patch,medicated 1 patch topical DAILY Qty: 15 0RF Rx Instructions: leave on most painful area for up to 12 hrs Continued cetirizine [All Day Allergy (cetirizine)] 10 mg tablet 20 mg PO DAILY 0RF atorvastatin 10 mg tablet 10 mg PO QHS 0RF Ensure Liquid 9 ml PO QID 0RF Rx Instructions: 3-4 bottles daily aspirin [Adult Aspirin Regimen] 81 mg tablet,delayed release (DR/EC) 81 mg PO DAILY 0RF levothyroxine 75 mcg Tablet 75 mcg PO DAILY 0RF ibuprofen [Advil] 200 mg tablet 600 mg PO Q6H PRN0RF betamethasone valerate 0.12 % foam 1 applic topical BID 0RF clobetasol 0.05 % cream 1 applic topical DAILY 0RF ropinirole 0.25 mg tablet 0.25 mg PO QHS 0RF Rx Instructions: administer 1-3 hours before bedtime oxybutynin chloride 5 mg tablet 5 mg PO BID 0RF hydrocortisone 2.5 % cream 1 applic topical DAILY PRN0RF Restasis 0.05 % dropperette 1 drp ophthalmic (eye) Q12H 0RF lorazepam 1 MG tablet 1 mg PO TID 0RF Discharge Instructions Instructions: Rib Fracture (ED), Contusion in Adults (ED) Additional Instructions: Use your spirometer to take at least 8 deep breaths daily It is important to keep using the spirometer so you dont develop pneumonia You may use Lidoderm patches 12 hours on, 12 hours off I am writing you for small amount of opiate analgesia, this is addictive and can make you constipated, use very sparingly Follow-up with your doctor regarding the nodule on your x-ray Referrals: Oj Blakely, ADOLFO [Primary Care Provider] - Discharge Data Discharge Date/Time-TO BE ENTERED AT DEPARTURE: 06/11/21 12:16 Medical Decision Making Patient appears well, her chest x-ray does not show acute abnormality per radiology interpretation my review Vitals stable at time of discharge She is declining any additional testing at this time and request discharge I have given her several doses of pain medication and reviewed spirometry necessity and risk of pneumonia She is aware that we have not done any additional acting Return precautions discussed and patient understanding Medical Records Medical records reviewed: Yes I reviewed the patient's medical records. Lab Data Lab results reviewed: Yes I reviewed the patient's lab results. HPI General Date/Time Provider Initiated Documentation: 06/11/21 10:08 . HPI Narrative: This 85-year-old female with history of COPD, sacroiliitis, sensorineural hearing loss presents with reports of right chest wall pain after a fall yesterday down 3 steps. She landed only on her right side reportedly. She denies any head injury. She was assessed at urgent care shortly thereafter and was recommended to have x-rays which she declined at the time. She presents today with her daughter secondary to persistent discomfort that has not worsening and unchanged. Denies any hemoptysis. Denies any abdominal pain, headache, neck pain, numbness or tingling. Denies any new shortness of breath but states that the pain is exacerbated with deep breathing. Denies any history of anticoagulation use. Denies any dizziness or weakness and states the fall was mechanical in nature. Denies any hematochezia or hematemesis. Denies any nausea or vomiting. Denies any rashes or lesions. Has not taken any juet-ihj-eclixqu medications for patient. Related Data Home Medications Medication Instructions Recorded Confirmed lorazepam 1 mg tablet 1 mg PO TID 12/26/12 06/11/21 atorvastatin 10 mg tablet 10 mg PO QHS 05/31/18 06/11/21 cetirizine 10 mg tablet (All Day 20 mg PO DAILY tab 05/31/18 04/10/21 Allergy (cetirizine)) food supplemt, lactose-reduced 9 ml PO QID 02/15/19 06/11/21 (Ensure) aspirin 81 mg tablet,delayed 81 mg PO DAILY 02/27/19 06/11/21 release (Adult Aspirin Regimen) levothyroxine 75 mcg tablet 75 mcg PO DAILY 02/27/19 06/11/21 ibuprofen 200 mg tablet (Advil) 600 mg PO Q6H PRN tab 05/31/19 06/11/21 betamethasone valerate 0.12 % 1 applic TOPICAL BID 08/05/20 06/11/21 topical foam clobetasol 0.05 % topical cream 1 applic TOPICAL DAILY 08/05/20 06/11/21 cyclosporine 0.05 % eye drops in a 1 drp OPHTHALMIC (EYE) Q12H 12/31/20 06/11/21 dropperette (Restasis) hydrocortisone 2.5 % topical cream 1 applic TOPICAL DAILY PRN g 12/31/20 06/11/21 oxybutynin chloride 5 mg tablet 5 mg PO BID 12/31/20 06/11/21 ropinirole 0.25 mg tablet 0.25 mg PO QHS 12/31/20 06/11/21 hydrocodone 5 mg-acetaminophen 325 1 tab PO BID PRN #8 tab 06/11/21 mg tablet lidocaine 5 % topical patch 1 patch TOPICAL DAILY #15 ea 06/11/21 (Lidoderm) Previous Rx's Medication Instructions Recorded hydrocodone 5 mg-acetaminophen 325 1 tab PO BID PRN #8 tab 06/11/21 mg tablet lidocaine 5 % topical patch 1 patch TOPICAL DAILY #15 ea 06/11/21 (Lidoderm) Allergies Allergy/AdvReac Type Severity Reaction Status Date / Time meperidine HCl [From Demerol] AdvReac Severe made me Verified 06/11/21 10:15 very, very sick wheat AdvReac Severe Diarrhea Verified 06/11/21 10:15 azithromycin AdvReac Intermediate gets sick Verified 06/11/21 10:15 Penicillins AdvReac Mild heart Verified 06/11/21 10:15 races,rash WHEAT BREAD Allergy Intermediate Uncoded 06/11/21 10:15 General Stated Complaint: Chest/Rib ENRIQUE: 3 Review of Systems All systems reviewed & are unremarkable except as noted in HPI and below PFSH All Active Problems (Updated 06/11/21 @ 11:35 by ARLETTE Andrade) Chest wall contusion (Acute) Conductive hearing loss, external ear (Acute) Impacted cerumen, bilateral (Acute) Lupus erythematosus (Chronic) Chronic low back pain (Acute) Mixed conductive and sensorineural hearing loss of left ear with restricted hearing of right ear (Acute) Chondrodermatitis nodularis helicis of left ear (Acute) Sacroiliitis (Acute) Sensorineural hearing loss, bilateral (Acute 04/25/13) wears b/l hearing aids Sensorineural hearing loss, asymmetrical (Acute 10/17/13) Sensorineural hearing loss of right ear (Acute 05/09/15) Otosclerosis (Acute 05/10/14) Orthostatic syncope (Acute 08/05/16) Mixed hearing loss of left ear (Acute 05/10/14) 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) Lumbosacral spondylosis without myelopathy (Chronic) Back pain (Acute) Lumbar stenosis with neurogenic claudication (Chronic) Personal history of colonic polyps (Acute) Medical History AAA (abdominal aortic aneurysm) Abnormal mammogram of right breast Adenomatous colon polyp Allergic rhinitis Anxiety Benzodiazepine dependence CAD (coronary artery disease) *Possible* Celiac disease Chronic leukopenia Conductive hearing loss, external ear (05/09/15) Dental infection Disorder of left pinna Diverticulosis Dizziness Elevated LFTs Encounter for screening mammogram for breast cancer Gait instability Hearing deficit Hiatal hernia Hypothyroid Impacted cerumen of both ears Knee pain, left Leg cramps Low back pain Lung nodule left lower lobe Mixed conductive and sensorineural hearing loss of left ear with restricted hearing of right ear (12/10/16) Neck pain S/P fall Noninfective disorders of pinna, left ear Onychomycosis Nail Osteoporosis Otalgia, left ear Panic disorder Preventative health care Right bundle branch block Sensorineural hearing loss (SNHL) of right ear with restricted hearing of left ear (12/10/16) Sensorineural hearing loss, bilateral (11/04/15) Skin rash Spinal stenosis Syncope Tobacco use Trigger thumb, left thumb Urinary incontinence Uterine fibroid Vitamin D deficiency Weight loss, abnormal Surgical History Cholecystectomy Colonoscopy - MAC (03/20/16) 2006 H/O stapedectomy History of tonsillectomy and adenoidectomy S/P AAA repair Family History Father Colon cancer Sister Lung cancer Social History Smoking/Tobacco Use Status: Current every day Tobacco Type: cigarettes Smoking risk assessment performed?: Yes Alcohol Intake: never Drug use: Never Substance use type: does not use Household members: none Number of Children: 14 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 Pets and animals: Yes Pets and animals: dog(s) Francisca/Gnosticist: Scientologist Do you feel safe at home: Yes Do you feel safe in your relationship?: Yes Exam Const General: cooperative, comfortable and no acute distress HENMT Head: normal to inspection Mouth: oral mucosae normal Eyes Pupils: PERRL Neck Other: No midline tenderness, no visible sign of trauma Chest Chest: normal inspection of the chest Other: No visible evidence of trauma, posterior chest wall tenderness without crepitus Resp Effort & Inspection: normal respiratory effort Auscultation: clear to auscultation bilaterally Cardio Rate: regular rate Rhythm: regular rhythm GI Other: No CVA tenderness, no pulsatile mass in abdomen, no abdominal tenderness, specifically no right upper quadrant and left upper quadrant tenderness Back/Spine/Pelvis Other: No midline thoracic or lumbar spine tenderness Skin General skin exam: no rashes or lesions noted Neuro General: patient alert and patient oriented x3 Cranial Nerves: CN's II-XI intact bilaterally Speech: speech normal Gait: normal gait Motor: strength 5/5 throughout Extrem General: normal to inspection Course Vital Signs Vital signs: Vital Signs Temperature 36 C L 06/11/21 10:08 Pulse 74 06/11/21 10:08 Respiratory Rate 16 06/11/21 10:08 Blood Pressure 159/72 H 06/11/21 10:08 Pulse Oximetry 96 06/11/21 10:08 Temperature 36 C L 06/11/21 10:08 Temperature Source Skin 06/11/21 10:08 Pulse 74 06/11/21 10:08 Respiratory Rate 16 06/11/21 10:08 Respiratory Effort Non-Labored 06/11/21 10:42 Respiratory Depth Normal 06/11/21 10:42 Respiratory Pattern Normal 06/11/21 10:42 Blood Pressure 159/72 H 06/11/21 10:08 Blood Pressure Position Sitting 06/11/21 10:08 Pulse Oximetry 96 06/11/21 10:08 Oxygen Delivery Method Room Air 06/11/21 10:08 Oxygen Flow Rate 0 06/11/21 10:08 Pain Level 10 06/11/21 10:42
[2021-06-11 11:57] VITALS: BP 111/73; PULSE 70; TEMP 36.4; O2SAT 93
[2021-06-11 11:59] VITALS: BP 111/73; PULSE 70; RESP 16; TEMP 36.4; O2SAT 93
== END 2021-06-11 12:16 | disposition home or self-care (01) ==
PROVIDERS: Emergency Provider Physician Assistant; PCP Nurse Practitioner Family
DX: S20.211A Contusion of right front wall of thorax, initial encounter (principal); W10.8XXA Fall (on) (from) other stairs and steps, initial encounter
CPT/HCPCS: 99283; 71046; 71100

== ENCOUNTER → 2021-06-16 14:32 | Outpatient (CLI) | payer OTHER, MEDICAID, SELFPAY ==
--- NOTE | 2021-06-16 | DI.CT_ITS ---
Exam(s) CT CHEST W EXAM: CT CHEST W CLINICAL HISTORY: FEVER, R50.9, PULMONARY INFILTRATE.R91.8 TECHNIQUE: Imaging Protocol: Axial computed tomography images with coronal and sagittal reformatted images were created and reviewed CONTRAST MATERIAL: Intravenous: Omnipaque 350 Contrast volume: 70 cc COMPARISON: CT ABD PELVIS WITH CONTRAST from 09/11/[address] CHEST WO from 04/25/[address] ABDOMEN PELVIS CTA from 05/06/2020 CR XR RIBS RT W PA LAT CHEST from 06/11/2021 FINDINGS: Tracheobronchial tree: No bronchiectasis or mucous plugging. Mediastinum and Gela: No dominant adenopathy or fluid collection. Pulmonary artery prominence. Pulmo nary arteries not well opacified with IV contrast. Pulmonary parenchyma: No consolidation or dominant measurable mass. Moderate emphysematous changes gr eatest in the upper lobes. No evidence of an infiltrate. No suspicious masses. 5 millimeter diamet er peripheral left lower lobe nodule stable from prior exams back to 2018. Pleura: No effusion or pneumothorax. Heart: The heart is not dilated. Mild coronary artery calcifications are seen. Aorta: Thoracic aorta non-dilated. Prominent atherosclerotic calcification. Ascending aorta 3.5 cm d iameter. Upper abdomen: Stent in the proximal aorta. Surgical clips in region of gallbladder fossa. Splenic cyst. Tiny liver cysts. Stable biliary dilatation. Lymph nodes: Within normal limits. Bones: Nondisplaced right 11th rib fracture. Right 12 rib fracture, mildly displaced. Soft tissues: Unremarkable. IMPRESSION: Emphysematous changes. Stable 5 millimeter nodule peripheral left lower lobe. No suspicious findings. Right 11th and 12th rib fractures. RADIATION DOSE DELIVERED: 294.04mGy.cm Total DLP DATA REPOSITORY: All CT scans at this facility are submitted to the National Radiology Data Registry (NRDR) Dose Index Registry (DIR) with the [employer] ([employer]). RADIATION OPTIMIZATION: All CT scans at this facility use at least one of these dose optimization te chniques: automated exposure control; mA and/or kV adjustment per patient size (includes targeted exa ms where dose is matched to clinical indication); or iterative reconstruction.
[2021-06-16 13:10] LABS: Abs Immature Grans 0.04 10^3/uL (0.0-0.06); Absolute Basophil Count 0.02 10^3/uL (0.0-0.2); Absolute Eosinophil Count 0.01 10^3/uL (0.0-0.7); Absolute Lymphocyte Count 0.96 10^3/uL (1.2-3.4); Absolute Monocyte Count 1.42 10^3/uL (0.1-0.8); Absolute Neutrophil Count 7.35 10^3/uL (1.2-6.7); Basophils % 0.2; Eosinophils % 0.1; HCT 40.9 % (36.0-46.0); HGB 13.4 g/dL (11.2-15.7); Immature Grans % 0.4; Lymphocytes % 9.8; MCHC 32.8 % (32.0-36.0); MCV 94.7 fL (80-95); MPV 9.9 fL (8.0-11.0); Monocytes % 14.5; Nucleated RBC 0 %; Platelet Count 135 10^3/uL (130-400); RBC 4.32 10^6/uL (3.93-5.22); RDW-SD 49.1 fL
[2021-06-16 13:21] LABS: Anion Gap 8.7 mmol/L (3-11); BUN 21 mg/dL (7-18); CO2 28.3 mmol/L (21.0-32.0); Calcium 8.8 mg/dL (8.5-10.1); Chloride 100 mmol/L (98-107); Estimated GFR 52.95 (mL/min/1.73m2); Glucose 98 mg/dL (74-106); Potassium 3.4 mmol/L (3.5-5.1); Sodium 137 mmol/L (136-145)
[2021-06-16] MEDS: Omnipaque 350 MG/ML 100 ML BTL IJ (13:37)
== END ==
PROVIDERS: PCP Nurse Practitioner Family; Visit Provider Nurse Practitioner Family
DX: R50.9 Fever, unspecified (principal); R91.8 Other nonspecific abnormal finding of lung field; R91.1 Solitary pulmonary nodule; S22.41XA Multiple fractures of ribs, right side, initial encounter for closed fracture
CPT/HCPCS: 80048; 71260; 85025; J3490

== ENCOUNTER 2021-08-20 18:58 | Outpatient (REF) | payer OTHER, MEDICAID, SELFPAY ==
[2021-08-22 11:06] LABS: COVID-19 RT-PCR UVMMC Result Negative (Negative)
== END 2021-08-20 18:59 | disposition home or self-care (01) ==
LOC: LBN 18:58
PROVIDERS: PCP Nurse Practitioner Family; Visit Provider Physician Assistant Medical
DX: Z20.822 Contact with and (suspected) exposure to COVID-19 (principal); R11.0 Nausea
CPT/HCPCS: U0003; U0005

== ENCOUNTER 2021-09-11 13:08 | Outpatient (REF) | payer OTHER, MEDICAID, SELFPAY | END 2021-09-11 13:09 | disposition home or self-care (01) | LOC: NCHCN 13:08 | PROVIDERS: PCP Nurse Practitioner Family; Visit Provider Physician Assistant Medical | DX: R35.0 Frequency of micturition (principal) | CPT/HCPCS: 87086 ==

== ENCOUNTER 2021-10-30 09:20 | Emergency (ER) | payer OTHER, MEDICAID, SELFPAY ==
[2021-10-30 09:26] VITALS: BP 178/69; PULSE 79; RESP 19; TEMP 36.8; O2SAT 91
--- NOTE | 2021-10-30 09:45 | DI.CT_ITS ---
Exam(s) CT HEAD WO EXAM: CT HEAD WO CLINICAL HISTORY: Fall, R scalp hematoma, R/O CVA. TECHNIQUE: Imaging Protocol: Axial computed tomography images with coronal and sagittal reformatted images were created and reviewed COMPARISON: CT HEAD WITH/WITHOUT CONTRAST from 06/30/2016 FINDINGS: There are no skull fractures nor fluid in the visualized paranasal sinuses. There is no evidence of intracranial hemorrhage, mass effect, or shift of midline structures. There are no extra-axial fluid collections. The ventricles are not enlarged or shifted and there is no blo od within the ventricular system nor within the basal cisterns. IMPRESSION: No acute intracranial findings on this noninfused CT scan of the brain. Report called by myself to the emergency room. RADIATION DOSE DELIVERED: 733.51mGy.cm Total DLP DATA REPOSITORY: All CT scans at this facility are submitted to the National Radiology Data Registry (NRDR) Dose Index Registry (DIR) with the [employer] (ACR). RADIATION OPTIMIZATION: All CT scans at this facility use at least one of these dose optimization te chniques: automated exposure control; mA and/or kV adjustment per patient size (includes targeted exa ms where dose is matched to clinical indication); or iterative reconstruction.
--- NOTE | 2021-10-30 09:54 | W.ED.GENAD ---
Discharge Plan Disposition Patient Disposition: HOME Condition: Stable Discharge Details Clinical Impression: Traumatic compression fracture of L1 lumbar vertebra Primary Care Provider: Oj Blakely ED Provider: Swati Davila Home Meds and New Rx's Prescriptions: Continued atorvastatin 10 mg tablet 10 mg PO QHS aspirin [Adult Aspirin Regimen] 81 mg tablet,delayed release (DR/EC) 81 mg PO DAILY ibuprofen [Advil] 200 mg tablet 600 mg PO Q6H PRN levothyroxine 75 mcg tablet 75 mcg PO DAILY lorazepam 1 mg tablet 1 mg PO TID PRN No Action naloxone [Narcan] 4 mg/actuation spray,non-aerosol 1 spray intranasal Q2-3M PRN Rx Instructions: spray 1 dose into ONE nostril; alternate nostrils w each dose until help arrives betamethasone valerate 0.12 % foam 1 applic topical BID clobetasol 0.05 % cream 1 applic topical DAILY PRN hydrocortisone 2.5 % cream 1 applic topical DAILY PRN cetirizine 10 mg tablet 20 tab PO DAILY Label Comments: TAKE 2 TABLETS BY MOUTH EVERY DAY Ensure Original 0.04-1.05 gram-kcal/mL liquid 237 ml PO QID Label Comments: DRINK 3 TO 4 BOTTLES BY MOUTH DAILY Discharge Instructions Instructions: Vertebral Compression Fracture (ED) Additional Instructions: You have a broken L1 bone in your lumbar spine. Please return to the ER if you have any loss of bowel or bladder control, worsening weakness, numbness or inability to move your legs, feeling as if you need to pee but cannot. Take the pain medication 1 tablet every 4-6 hours as needed for moderate to severe pain Try not to bend at the waist Follow up with primary care provider in 3-5 days. Return to ED sooner if any worsening or concerns. Increase oral fluids. A referral was placed for orthopedic clinic. Please keep the spine clinic appointment on November 19 as previously scheduled. Referrals: Oj Blakely NP [Primary Care Provider] - Bassam Blanco MD [ [facility] STAFF PHYSICIAN] - 1 week (L1-endplate compression fracture due to fall) Medical Decision Making Patient declines any headache to me she reports I am not worried about the lump on my head. I did inform her that we are unable to rule out any intracranial bleeding without imaging. CT head ordered. X-ray chest, left side rib series ordered, hip and pelvis and L-spine x-ray. Patient is moving her extremities without any difficulty. Alert and oriented x4. CT ordered due to the patient's mechanism of injury and on aspirin. Conflicting information between RN report and patient report to myself. No focal neurodeficits noted. Oxycodone and lidocaine patch ordered. Patient reports that she will get home with a cab. 1040: CT within normal limits X-ray shows a compression fracture approximately 20% of L1, L2 discussed x-ray results with patient who verbalized understanding. Discussed family strict return instructions care and follow-up care she verbalized understanding. Patient sent home with 4 tablets of oxycodone. Patient does take lorazepam on a daily basis so hesitant to send home with a muscle relaxer. Medical Records Medical records reviewed: Yes I reviewed the patient's medical records. Imaging Data Radiologic Study: Imaging: CT Scan Radiologist's impression: EXAM: CT HEAD WO CLINICAL HISTORY: Fall, R scalp hematoma, R/O CVA. TECHNIQUE: Imaging Protocol: Axial computed tomography images with coronal and sagittal reformatted images were created and reviewed COMPARISON: CT HEAD WITH/WITHOUT CONTRAST from 06/30/2016 FINDINGS: There are no skull fractures nor fluid in the visualized paranasal sinuses. There is no evidence of intracranial hemorrhage, mass effect, or shift of midline structures. There are no extra-axial fluid collections. The ventricles are not enlarged or shifted and there is no blood within the ventricular system nor within the basal cisterns. IMPRESSION: No acute intracranial findings on this noninfused CT scan of the brain. Radiologic Study #2: Imaging: X-Ray Radiologist's impression: EXAM:? XR LUMBAR SPINE COMPLETE CLINICAL HISTORY: ? Fall, Lower back pain. ? TECHNIQUE:? 2D digital imaging was performed. COMPARISON:? CR LUMBAR SPINE COMPLETE from 07/27/2008 FINDINGS: Five views Since 2009 there has been interval placement of an aortic EVAR graft. There is compression fracture at superior endplate L1, not previously present in 2009, age is indeterminate.? L1 exhibits approximately 20 percent height loss.? No additional lumbar vertebra compression fractures. No disc space narrowing.? Facet joint degenerative changes at L5-S1 noted.? Visualized sacroiliac joints unremarkable.? No prominent scoliosis.. IMPRESSION: L1 compression fracture, approximately 15-20 percent, not previously present on the prior 2009 images. Aortic EVAR graft which was also not present in 2009 HPI General Mode of arrival: ambulatory. Date/Time Provider Initiated Documentation: 10/30/21 09:25. Limitations to Documentation: no limitations. Information obtained by: patient, RN notes reviewed and old records reviewed. HPI Narrative: 84-year-old female presents to the ER status post mechanical fall on Wednesday. Patient reports that she fell onto her left side while taking the dog out for a walk, she fell onto her buttock hit the left side of her chest and right side of her head on a chair. She denies any loss of consciousness denies any neck pain she does complain of some left-sided chest wall pain, left buttock pain and lower back pain. She does have a small hematoma noted to her right scalp. It is unclear whether she is having headaches. She denies it to me multiple times however, she did tell the nurse that she has had headache since Wednesday. She does have a contusion noted to her left buttock. She reports having lower back problems in the past. Denies any loss of bowel or bladder control. Denies any chest pain shortness of breath, dizziness, or change in vision. She does take aspirin daily, she has a past medical history of lumbosacral spondylosis, hearing loss, chronic low back pain, osteosclerosis, AAA repair, high blood pressure, coronary artery disease, celiac disease, chronic leukopenia, diverticulosis. Related Data Home Medications Medication Instructions Recorded Confirmed atorvastatin 10 mg tablet 10 mg PO QHS 05/31/18 10/30/21 aspirin 81 mg tablet,delayed 81 mg PO DAILY 02/27/19 10/30/21 release (Adult Aspirin Regimen) ibuprofen 200 mg tablet (Advil) 600 mg PO Q6H PRN 05/31/19 10/30/21 betamethasone valerate 0.12 % 1 applic topical BID 08/05/20 10/30/21 topical foam clobetasol 0.05 % topical cream 1 applic topical DAILY PRN 08/05/20 10/30/21 hydrocortisone 2.5 % topical cream 1 applic topical DAILY PRN 12/31/20 10/30/21 levothyroxine 75 mcg tablet 75 mcg PO DAILY 07/17/21 10/30/21 lorazepam 1 mg tablet 1 mg PO TID PRN 07/17/21 10/30/21 naloxone 4 mg/actuation nasal 1 spray intranasal Q2-3M PRN 07/17/21 08/19/21 spray (Narcan) cetirizine 10 mg tablet 20 tab PO DAILY 10/30/21 10/30/21 food supplemt, lactose-reduced 237 ml PO QID 10/30/21 10/30/21 0.04 gram-1.05 kcal/mL oral liquid (Ensure Original) Allergies Allergy/AdvReac Type Severity Reaction Status Date / Time meperidine HCl [From Demerol] AdvReac Severe made me Verified 10/30/21 10:04 very, very sick wheat AdvReac Severe Diarrhea Verified 10/30/21 10:04 azithromycin AdvReac Intermediate gets sick Verified 10/30/21 10:04 Penicillins AdvReac Mild heart Verified 10/30/21 10:04 races,rash WHEAT BREAD Allergy Intermediate Uncoded 10/30/21 10:04 General Stated Complaint: Orthopedic ENRIQUE: 3 Review of Systems All systems reviewed & are unremarkable except as noted in HPI and below Constitutional Constitutional: Reports as per HPI, Denies snoring and Denies weakness Eyes Eyes: Denies loss of vision ENT Ears, Nose, Mouth, and Throat: Denies vertigo and Denies dizziness Cardiovascular Cardiovascular: Denies chest pain, Denies chest pain at rest, Denies syncope, Denies lightheadedness and Denies dyspnea Respiratory Respiratory: Denies cough, Denies hemoptysis, Reports pain on inspiration, Denies dyspnea, Denies snoring and Denies stridor Gastrointestinal Gastrointestinal: Denies abdominal pain, Denies diarrhea, Denies nausea and Denies vomiting Genitourinary Genitourinary: Denies urinary incontinence Musculoskeletal Musculoskeletal: Reports as per HPI, Reports back pain, Denies numbness, Reports stiffness and Denies tingling Integumentary/Breasts Skin/Breast: Reports wounds (Left contusion buttock) Neurologic Neurologic: Denies confusion, Denies vertigo, Denies dizziness, Denies syncope, Denies localized weakness, Denies loss of vision, Denies numbness, Denies other visual disturbances, Reports radicular pain, Denies seizure-like activity, Denies tingling and Denies weakness Psychiatric Psychiatric: Denies confusion PFSH All Active Problems (Updated 10/30/21 @ 12:27 by Swati Davila NP) Traumatic compression fracture of L1 lumbar vertebra (Acute) Lumbosacral spondylosis without myelopathy (Acute) Conductive hearing loss, external ear (Acute) Impacted cerumen, bilateral (Acute) Lupus erythematosus (Chronic) Chronic low back pain (Acute) Mixed conductive and sensorineural hearing loss of left ear with restricted hearing of right ear (Acute) Chondrodermatitis nodularis helicis of left ear (Acute) Sacroiliitis (Acute) Sensorineural hearing loss, bilateral (Acute 04/25/13) wears b/l hearing aids Sensorineural hearing loss, asymmetrical (Acute 10/17/13) Sensorineural hearing loss of right ear (Acute 05/09/15) Otosclerosis (Acute 05/10/14) Orthostatic syncope (Acute 08/05/16) Mixed hearing loss of left ear (Acute 05/10/14) 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) Lumbosacral spondylosis without myelopathy (Chronic) Back pain (Acute) Lumbar stenosis with neurogenic claudication (Chronic) Personal history of colonic polyps (Acute) Medical History AAA (abdominal aortic aneurysm) Abnormal mammogram of right breast Actinic keratosis Adenomatous colon polyp Allergic rhinitis Anxiety Benzodiazepine dependence CAD (coronary artery disease) *Possible* Celiac disease Chronic leukopenia Conductive hearing loss, external ear (05/09/15) Dental infection Disorder of left pinna Diverticulosis Dizziness Elevated LFTs Encounter for screening mammogram for breast cancer Gait instability Hearing deficit Hiatal hernia Hypothyroid Impacted cerumen of both ears Knee pain, left Left shoulder pain Leg cramps Low back pain Lung nodule left lower lobe Lupus Mixed conductive and sensorineural hearing loss of left ear with restricted hearing of right ear (12/10/16) Neck pain S/P fall Noninfective disorders of pinna, left ear Onychomycosis Nail Osteoporosis Otalgia, left ear Panic disorder Poor dentition Preventative health care Right bundle branch block Sensorineural hearing loss (SNHL) of right ear with restricted hearing of left ear (12/10/16) Sensorineural hearing loss, bilateral (11/04/15) Skin rash Spinal stenosis Syncope Tobacco use Trigger thumb, left thumb Urinary incontinence Uterine fibroid Vitamin D deficiency Weight loss, abnormal Surgical History Cholecystectomy Colonoscopy - [facility] (03/20/16) 2007 H/O stapedectomy History of tonsillectomy and adenoidectomy S/P AAA repair Family History Father Colon cancer Sister Lung cancer Social History Smoking/Tobacco Use Status: Current every day Tobacco Type: cigarettes Years smoked: 43 Smoking risk assessment performed?: Yes Alcohol Intake: never Drug use: Never Substance use type: does not use Household members: none Number of Children: 14 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 Skin: Warm and Dry HEENT: Head: No palpable deformities, Normocephalic Eyes: Pupils PERRLA, EOM's intact. No periorbital eccymosis or step off Ears: Canal patent. Tympanic membranes are clear . No chadwick's sign, no hemptympanum. Nose/Face: Atraumatic. Facial bones nontender to palpation and stable with manipulation. Mouth/Throat: No intraoral trauma. Teeth and mandible are intact. Neck: No midline tenderness, no step off, no deformity to palpation of C-spine. Trachea midline. Chest: No surface trauma. without crepitus or deformity. Lungs clear to ausculatation bilaterally. Tender with PPalpation to left posterior ribs, Lower L-spine tenderness with palpation. Heart: RRR, no rubs, murmurs or gallop. Abdomen: No abrasions, ecchymosis, or surface trauma. Nondistended. Nontender to palpation no guarding, rebound, or rigidity. Pelvis: Nontender to palpation and stable to compression. Femoral pulses strong and equal. Contusion noted to left buttock. Extremities: no surface trauma. Sensation intact. Peripheral pulses intact and equal. Neuro: ANO x4, GCS 15, cranial nerves II through XII intact. Motor and sensory exam nonfocal. Reflexes are symmetric. Course Vital Signs Vital signs: Vital Signs Temperature 36.8 C 10/30/21 09:26 Pulse 79 10/30/21 09:26 Respiratory Rate 19 10/30/21 09:26 Blood Pressure 178/69 H 10/30/21 09:26 Pulse Oximetry 91 L 10/30/21 09:26 Temperature 36.8 C 10/30/21 09:26 Temperature Source Temporal Artery Scan 10/30/21 09:26 Pulse 79 10/30/21 09:26 Respiratory Rate 19 10/30/21 09:26 Respiratory Effort 10/30/21 09:35 Blood Pressure 178/69 H 10/30/21 09:26 Blood Pressure Position Right Lateral 10/30/21 09:26 Pulse Oximetry 91 L 10/30/21 09:26 Oxygen Delivery Method Room Air 10/30/21 09:26 Oxygen Flow Rate 0 10/30/21 09:26 Pain Level 10 10/30/21 09:35
[2021-10-30] MEDS: oxyCODONE 5 MG TAB PO (10:00)
[2021-10-30] MEDS: Lidocaine 5% Patch 1 PATCH TP (10:00)
--- NOTE | 2021-10-30 10:48 | DI.RAD_ITS ---
Exam(s) XR LUMBAR SPINE COMPLETE EXAM: XR LUMBAR SPINE COMPLETE CLINICAL HISTORY: Fall, Lower back pain. TECHNIQUE: 2D digital imaging was performed. COMPARISON: CR LUMBAR SPINE COMPLETE from 07/27/2008 FINDINGS: Five views Since 2009 there has been interval placement of an aortic EVAR graft. There is compression fracture at superior endplate L1, not previously present in 2009, age is indeter minate. L1 exhibits approximately 20 percent height loss. No additional lumbar vertebra compression fractures. No disc space narrowing. Facet joint degenerative changes at L5-S1 noted. Visualized sacroiliac georgi nts unremarkable. No prominent scoliosis.. IMPRESSION: L1 compression fracture, approximately 15-20 percent, not previously present on the prior 2009 images . Aortic EVAR graft which was also not present in 2009 DATA REPOSITORY: RADIATION DOSE DELIVERED:
--- NOTE | 2021-10-30 10:48 | DI.RAD_ITS ---
Exam(s) XR RIBS LT W PA LAT CHEST EXAM: XR RIBS LT W PA LAT CHEST CLINICAL HISTORY: Fall 5 days ago, Left rib pain. TECHNIQUE: 2D digital imaging was performed. COMPARISON: CR XR RIBS RT W PA LAT CHEST from 06/11/2021 FINDINGS: Total 6 views: Left rib cage-four views: No obvious left rib fractures identified. No rib lesions. CXR-two views: Normal heart size. Mediastinum not widened. Lungs are clear. No pneumothorax. No l samira contusion. No pleural effusions. IMPRESSION: No acute left rib fractures identified. No significant pulmonary findings. No pneumothorax. Incidentally noted is an abdominal aortic EVAR graft DATA REPOSITORY: RADIATION DOSE DELIVERED:
--- NOTE | 2021-10-30 10:48 | DI.RAD_ITS ---
Exam(s) XR HIP LT COMPLETE AP PELVIS EXAM: XR HIP LT COMPLETE AP PELVIS CLINICAL HISTORY: Fall, R/O Fracture. TECHNIQUE: 2D digital imaging was performed. COMPARISON: CR XR HIP PELVIS ADULT BL from 05/15/2019 FINDINGS: 3 views No evidence of pelvic nor hip fractures. Aortic EVAR incidentally noted. Distal [employer] most is are in the distal common iliac arteries. Sclerotic densities noted on the left side which may be within the buttock, such as buttock granuloma s. Difficult to determine location of these calcifications without a lateral view. IMPRESSION: DATA REPOSITORY: RADIATION DOSE DELIVERED:
[2021-10-30 13:48] VITALS: BP 178/69; PULSE 79; RESP 19; TEMP 36.8; O2SAT 91
== END 2021-10-30 12:48 | disposition home or self-care (01) ==
PROVIDERS: Emergency Provider Registered Nurse Emergency; PCP Nurse Practitioner Family
DX: S32.019A Unspecified fracture of first lumbar vertebra, initial encounter for closed fracture (principal); F17.210 Nicotine dependence, cigarettes, uncomplicated; S00.03XA Contusion of scalp, initial encounter; W18.30XA Fall on same level, unspecified, initial encounter; Y93.K1 Activity, walking an animal
CPT/HCPCS: 99284; 70450; 71046; 71100; 72110; 73502

== ENCOUNTER 2021-12-23 13:10 | Outpatient (REF) | payer OTHER, MEDICAID, SELFPAY ==
[2021-12-23 14:31] LABS: Abs Immature Grans 0.01 10^3/uL (0.0-0.06); Absolute Basophil Count 0.02 10^3/uL (0.0-0.2); Absolute Eosinophil Count 0.09 10^3/uL (0.0-0.7); Absolute Lymphocyte Count 1.37 10^3/uL (1.2-3.4); Absolute Monocyte Count 0.78 10^3/uL (0.1-0.8); Absolute Neutrophil Count 4.44 10^3/uL (1.2-6.7); Basophils % 0.3; Eosinophils % 1.3; HCT 43.7 % (36.0-46.0); HGB 14.4 g/dL (11.2-15.7); Immature Grans % 0.1; Lymphocytes % 20.4; MCH 30.7 pg (27.0-33.0); MCV 93 fL (80-95); MPV 10.3 fL (8.0-11.0); Monocytes % 11.6; Neutrophils % 66.3; Platelet Count 158 10^3/uL (130-400); RBC 4.69 10^6/uL (3.93-5.22); RDW 13.1 % (11.7-14.6); RDW-SD 44.5 fL; WBC 6.71 10^3/uL (4.4-10.8)
[2021-12-23 15:15] LABS: ALT 22 U/L (14-59); AST 23 U/L (15-37); Albumin 4.2 g/dL (3.4-5.0); Alkaline Phosphatase 124 U/L (46-116); Anion Gap 5.4 mmol/L (3-11); BUN 11 mg/dL (7-18); Bilirubin, Total 0.4 mg/dL (0.2-1.0); CO2 32.6 mmol/L (21.0-32.0); CREATININE 0.8 mg/dL (0.55-1.02); Calcium 9.1 mg/dL (8.5-10.1); Chloride 102 mmol/L (98-107); Estimated GFR 72.61 (mL/min/1.73m2); Glucose 95 mg/dL (74-106); Magnesium 1.9 mg/dL (1.8-2.4); Potassium 4.1 mmol/L (3.5-5.1); Sodium 140 mmol/L (136-145); TSH (W/Ref FT4) 2.71 uIU/mL (0.36-3.74); Total Protein 6.7 g/dL (6.4-8.2); Troponin I < 50 ng/L (<or=60)
[2021-12-23 15:53] LABS: D-Dimer 1124 ng/mlFEU (<500)
== END 2021-12-23 13:11 | disposition home or self-care (01) ==
LOC: LBN 13:10
PROVIDERS: PCP Nurse Practitioner Family; Visit Provider Nurse Practitioner Family
DX: R07.89 Other chest pain (principal)
CPT/HCPCS: 80053; 83735; 84443; 84484; 85025; 85379

== ENCOUNTER → 2021-12-29 01:17 | Outpatient (CLI) | payer OTHER, MEDICAID, SELFPAY ==
--- NOTE | 2021-12-29 | DI.CT_ITS ---
Exam(s) CT CHEST PE CTA EXAM: CT CHEST PE CTA CLINICAL HISTORY: CHEST DISCOMFORT R07.89, ELEVATED D-DIMER. TECHNIQUE: Imaging Protocol: Axial CT angiography was performed with multi-slice acquisition and mu lti-planar reconstructions as well as axial, coronal and sagittal MIP reconstructions. CONTRAST MATERIAL: Intravenous: Omnipaque 350 Contrast volume:70 mL COMPARISON: CT CT CHEST W from 06/16/2021 CR XR LUMBAR SPINE COMPLETE from 10/30/2021 CR XR RIBS LT W PA LAT CHEST from 10/30/2021 FINDINGS: Pulmonary Arteries: No evidence of filling defect to suggest pulmonary emboli. Tracheobronchial tree: Patent where visualized. Mediastinum and Gela: No dominant adenopathy or fluid collection. Pulmonary parenchyma: Moderate emphysematous changes. Stable 5 millimeter nodule lateral left lower lobe. No consolidation or dominant measurable mass. Pleura: No effusion or pneumothorax. Heart: The heart is mildly dilated. Mild coronary artery calcifications are seen. Aorta: Thoracic aorta non-dilated. No aneurysm. No dissection. Atherosclerotic changes. Upper abdomen: Splenic granulomas and splenic cyst. Small hiatal hernia. Bones: Stable mild compression fracture of the superior endplate of L1. IMPRESSION: No evidence of pulmonary embolism or other acute abnormality. Emphysematous changes.. RADIATION DOSE DELIVERED: 176.09mGy.cm Total DLP DATA REPOSITORY: All CT scans at this facility are submitted to the National Radiology Data Registry (NRDR) Dose Index Registry (DIR) with the [employer] (A[employer]). RADIATION OPTIMIZATION: All CT scans at this facility use at least one of these dose optimization te chniques: automated exposure control; mA and/or kV adjustment per patient size (includes targeted exa ms where dose is matched to clinical indication); or iterative reconstruction.
[2021-12-29] MEDS: Omnipaque 350 MG/ML 500 ML BTL-Imaging package IJ (14:29)
== END ==
PROVIDERS: Visit Provider Nurse Practitioner Family
DX: R91.8 Other nonspecific abnormal finding of lung field (principal); R07.89 Other chest pain
CPT/HCPCS: 71275

== ENCOUNTER → 2022-02-23 02:15 | Outpatient (CLI) | payer OTHER, MEDICAID, SELFPAY ==
--- NOTE | 2022-02-23 | DI.CT_ITS ---
Exam(s) CT HEAD WO EXAM: CT HEAD WO CLINICAL HISTORY: HEADACHE UNSPECIFIED, R51.9. TECHNIQUE: Imaging Protocol: Axial computed tomography images with coronal and sagittal reformatted images were created and reviewed COMPARISON: CT CT HEAD WO from 10/30/2021 FINDINGS: Ventricles and Extra axial spaces: Normal in size and morphology for the patient's age. Hemorrhage: None. Cerebral parenchyma: Minimal atrophy. Old right thalamic lacunar infarct. Mild white matter changes of small vessel disease. Midline shift: None. Brainstem/Cerebellum: Normal. Calvarium: Normal. Visualized Paranasal sinuses/Mastoids: Clear. Soft Tissues: Unremarkable. IMPRESSION: No acute intracranial process. RADIATION DOSE DELIVERED: 690.64mGy.cm Total DLP DATA REPOSITORY: All CT scans at this facility are submitted to the National Radiology Data Registry (NRDR) Dose Index Registry (DIR) with the [employer] (ACR). RADIATION OPTIMIZATION: All CT scans at this facility use at least one of these dose optimization te chniques: automated exposure control; mA and/or kV adjustment per patient size (includes targeted exa ms where dose is matched to clinical indication); or iterative reconstruction.
== END ==
PROVIDERS: PCP Nurse Practitioner Family; Visit Provider Nurse Practitioner Family
DX: R51.9 Headache, unspecified (principal); I67.89 Other cerebrovascular disease
CPT/HCPCS: 70450

== ENCOUNTER 2022-04-17 12:12 | Outpatient (REF) | payer MEDICARE, MEDICAID, SELFPAY ==
[2022-04-17 16:04] LABS: Abs Immature Grans 0.01 10^3/uL (0.0-0.06); Absolute Basophil Count 0.03 10^3/uL (0.0-0.2); Absolute Eosinophil Count 0.07 10^3/uL (0.0-0.7); Absolute Lymphocyte Count 1.65 10^3/uL (1.2-3.4); Absolute Neutrophil Count 4.18 10^3/uL (1.2-6.7); Basophils % 0.5; Eosinophils % 1.1; HGB 15.1 g/dL (11.2-15.7); Immature Grans % 0.2; Lymphocytes % 24.8; MCH 30.8 pg (27.0-33.0); MCHC 32.8 % (32.0-36.0); MCV 94 fL (80-95); MPV 11.4 fL (8.0-11.0); Monocytes % 10.5; Neutrophils % 62.9; Platelet Count 141 10^3/uL (130-400); RBC 4.91 10^6/uL (3.93-5.22); RDW-SD 44.2 fL; WBC 6.64 10^3/uL (4.4-10.8)
[2022-04-17 16:24] LABS: ALT 24 U/L (14-59); AST 26 U/L (15-37); Albumin 4.5 g/dL (3.4-5.0); Alkaline Phosphatase 131 U/L (46-116); Anion Gap 5.9 mmol/L (3-11); BUN 17 mg/dL (7-18); Bilirubin, Total 0.5 mg/dL (0.2-1.0); CO2 33.1 mmol/L (21.0-32.0); CREATININE 0.7 mg/dL (0.55-1.02); Calcium 9.5 mg/dL (8.5-10.1); Chloride 104 mmol/L (98-107); Estimated GFR 85.23 (mL/min/1.73m2); Glucose 83 mg/dL (74-106); Potassium 4.2 mmol/L (3.5-5.1); Sodium 143 mmol/L (136-145); TSH (W/Ref FT4) 2.22 uIU/mL (0.36-3.74); Total Protein 6.5 g/dL (6.4-8.2)
== END 2022-04-17 12:13 | disposition home or self-care (01) ==
LOC: LBN 12:12
PROVIDERS: PCP Nurse Practitioner Family; Visit Provider Physician Assistant Medical
DX: Z13.89 Encounter for screening for other disorder (principal)
CPT/HCPCS: 80053; 84443; 85025

== ENCOUNTER 2022-05-23 15:56 | Outpatient (REF) | payer MEDICARE, MEDICAID, SELFPAY ==
[2022-05-23 16:03] LABS: Abs Immature Grans 0.06 10^3/uL (0.0-0.06); Absolute Basophil Count 0.02 10^3/uL (0.0-0.2); Absolute Eosinophil Count 0.09 10^3/uL (0.0-0.7); Absolute Lymphocyte Count 1.54 10^3/uL (1.2-3.4); Absolute Monocyte Count 0.57 10^3/uL (0.1-0.8); Absolute Neutrophil Count 4.57 10^3/uL (1.2-6.7); Basophils % 0.3; Eosinophils % 1.3; HCT 50.5 % (36.0-46.0); HGB 14.8 g/dL (11.2-15.7); Immature Grans % 0.9; Lymphocytes % 22.5; MCH 30.8 pg (27.0-33.0); MCHC 29.3 % (32.0-36.0); MCV 105 fL (80-95); MPV 12.9 fL (8.0-11.0); Monocytes % 8.3; Neutrophils % 66.7; Platelet Count 164 10^3/uL (130-400); RDW 13.4 % (11.7-14.6); RDW-SD 53.1 fL; WBC 6.85 10^3/uL (4.4-10.8)
[2022-05-23 16:21] LABS: ALT 22 U/L (14-59); AST 21 U/L (15-37); Albumin 4.5 g/dL (3.4-5.0); Alkaline Phosphatase 124 U/L (46-116); Anion Gap 9.6 mmol/L (3-11); BUN 9 mg/dL (7-18); Bilirubin, Total 0.6 mg/dL (0.2-1.0); CO2 29.4 mmol/L (21.0-32.0); CREATININE 0.7 mg/dL (0.55-1.02); Calcium 9.1 mg/dL (8.5-10.1); Chloride 105 mmol/L (98-107); Estimated GFR 85.23 (mL/min/1.73m2); Glucose 73 mg/dL (74-106); Potassium 3.8 mmol/L (3.5-5.1); Sodium 144 mmol/L (136-145); TSH (W/Ref FT4) 1.83 uIU/mL (0.36-3.74); Total Protein 6.4 g/dL (6.4-8.2)
[2022-05-23 20:11] LABS: Diff Comment Agrees w/ Instrument; Macrocytosis 3+; Stomatocytes 2+
== END 2022-05-23 15:57 | disposition home or self-care (01) ==
LOC: LBN 15:56
PROVIDERS: PCP Nurse Practitioner Family; Visit Provider Nurse Practitioner Family
DX: R63.4 Abnormal weight loss (principal); D75.89 Other specified diseases of blood and blood-forming organs
CPT/HCPCS: 80053; 84443; 85025

== ENCOUNTER 2022-07-24 01:31 | Outpatient (CLI) | payer MEDICARE, MEDICAID, SELFPAY ==
[2022-07-24 12:19] LABS: Anion Gap 4.6 mmol/L (3-11); BUN 12 mg/dL (7-18); CO2 33.4 mmol/L (21.0-32.0); CREATININE 0.8 mg/dL (0.55-1.02); Calcium 8.9 mg/dL (8.5-10.1); Chloride 102 mmol/L (98-107); Estimated GFR 72.61 (mL/min/1.73m2); Folate 19.3 ng/mL (8.6-20.0); Glucose 91 mg/dL (74-106); Potassium 3.9 mmol/L (3.5-5.1); Sodium 140 mmol/L (136-145); Vitamin B12 476 pg/mL (193-986)
== END 2022-07-24 01:32 | disposition home or self-care (01) ==
LOC: LBO 01:32
PROVIDERS: PCP Nurse Practitioner Family; Visit Provider Nurse Practitioner Family
DX: D75.89 Other specified diseases of blood and blood-forming organs (principal); R63.4 Abnormal weight loss
CPT/HCPCS: 36415; 80048; 82607; 82746

== ENCOUNTER 2022-08-18 22:21 | Outpatient (REF) | payer MEDICARE, MEDICAID, SELFPAY ==
[2022-08-18 23:59] LABS: Calculated LDL 46 mg/dL (<100); Cholesterol 103 mg/dL (<200); HDL Cholesterol 52 mg/dL (40-60); Triglyceride 26 mg/dL (<150)
== END 2022-08-18 22:22 | disposition home or self-care (01) ==
LOC: LBN 22:21
PROVIDERS: PCP Nurse Practitioner Family; Visit Provider Nurse Practitioner Family
DX: I71.40 Abdominal aortic aneurysm, without rupture, unspecified (principal); Z51.81 Encounter for therapeutic drug level monitoring
CPT/HCPCS: 80061

== ENCOUNTER 2022-11-30 15:41 | Emergency (ER) | payer MEDICARE, MEDICAID, SELFPAY ==
[2022-11-30 16:02] VITALS: BP 149/75; PULSE 78; RESP 16; TEMP 36.6; O2SAT 95
--- NOTE | 2022-11-30 17:07 | ED.GENADUL_ITS ---
Discharge Plan Disposition Patient Disposition: Home Discharge Details Clinical Impression: Herpes zoster Primary Care Provider: Oj Marinelli ED Provider: Reyes Barcenas Home Meds and New Rx's Prescriptions: New valacyclovir [Valtrex] 1 gram tablet 1,000 mg PO TID 10 Days Qty: 30 0RF No Action aspirin [Adult Aspirin Regimen] 81 mg tablet,delayed release (DR/EC) 81 mg PO DAILY atorvastatin 10 mg tablet 10 mg PO QHS Qty: 90 4RF levothyroxine 75 mcg tablet 75 mcg PO DAILY Qty: 90 4RF ibuprofen [Advil] 200 mg tablet 600 mg PO Q6H PRN diclofenac sodium [Voltaren Arthritis Pain] 1 % gel 2 g topical QID Qty: 100 3RF lorazepam 1 mg tablet 1 mg PO TID PRN (Reason: anxiety) Qty: 90 5RF betamethasone valerate 0.12 % foam 1 applic topical BID clobetasol 0.05 % cream 1 applic topical DAILY PRN hydrocortisone 2.5 % cream 1 applic topical DAILY PRN (DME) Poise Pads Pad See Rx Instructions .Route Rx Instructions: As directed Ensure Original 0.04-1.05 gram-kcal/mL liquid 237 ml PO QID Qty: 30765 5RF cetirizine 10 mg tablet 10 mg PO DAILY Qty: 90 1RF Discharge Instructions Instructions: Shingles (ED) Additional Instructions: Please help with your primary care physician. Please take medications as prescribed. Return to the emergency department for any worsening symptoms Medical Decision Making 86-year-old female presents with painful ribs over the last 2 days. No discrete injury noted. Afebrile nontoxic not hypoxic no acute respiratory symptoms. Atraumatic examination, noted to have vesicular rash in thoracic dermatomal distribution on left side of chest wall consistent with herpes zoster. Will initiate valacyclovir antiviral treatment. We will give IM Toradol for discomfort. Home care instructions return precautions HPI General Date/Time Provider Initiated Documentation: 11/30/22 16:52 . HPI Narrative: 86-year-old female presents with painful left ribs over the last 2 days, denies discrete injury shortness of breath fevers chills nausea vomiting. Related Data Home Medications Medication Instructions Recorded Confirmed aspirin 81 mg tablet,delayed 81 mg PO DAILY 02/27/19 11/03/22 release (Adult Aspirin Regimen) ibuprofen 200 mg tablet (Advil) 600 mg PO Q6H PRN 05/31/19 11/03/22 betamethasone valerate 0.12 % 1 applic topical BID 08/05/20 11/03/22 topical foam clobetasol 0.05 % topical cream 1 applic topical DAILY PRN 08/05/20 11/03/22 hydrocortisone 2.5 % topical cream 1 applic topical DAILY PRN 12/31/20 11/03/22 incontinence pad, liner, disp 03/30/22 11/03/22 (Poise Pads) food supplemt, lactose-reduced 237 ml PO QID #22,752 mL 05/22/22 11/03/22 0.04 gram-1.05 kcal/mL oral liquid (Ensure Original) atorvastatin 10 mg tablet 10 mg PO QHS #90 tabs 06/29/22 11/03/22 levothyroxine 75 mcg tablet 75 mcg PO DAILY #90 tabs 06/29/22 11/03/22 cetirizine 10 mg tablet 10 mg PO DAILY #90 tabs 07/07/22 11/03/22 diclofenac sodium 1 % topical gel 2 g topical QID #100 grams 10/16/22 11/03/22 (Voltaren Arthritis Pain) lorazepam 1 mg tablet 1 mg PO TID PRN anxiety #90 tabs 10/16/22 11/03/22 valacyclovir 1 gram tablet 1,000 mg PO TID 10 days #30 tabs 11/30/22 (Valtrex) Previous Rx's Medication Instructions Recorded food supplemt, lactose-reduced 237 ml PO QID #22,752 mL 05/22/22 0.04 gram-1.05 kcal/mL oral liquid (Ensure Original) atorvastatin 10 mg tablet 10 mg PO QHS #90 tabs 06/29/22 levothyroxine 75 mcg tablet 75 mcg PO DAILY #90 tabs 06/29/22 cetirizine 10 mg tablet 10 mg PO DAILY #90 tabs 07/07/22 diclofenac sodium 1 % topical gel 2 g topical QID #100 grams 10/16/22 (Voltaren Arthritis Pain) lorazepam 1 mg tablet 1 mg PO TID PRN anxiety #90 tabs 10/16/22 valacyclovir 1 gram tablet 1,000 mg PO TID 10 days #30 tabs 11/30/22 (Valtrex) Allergies Allergy/AdvReac Type Severity Reaction Status Date / Time meperidine HCl [From Demerol] AdvReac Severe made me Verified 11/03/22 14:04 very, very sick wheat AdvReac Severe Diarrhea Verified 11/03/22 14:04 azithromycin AdvReac Intermediate gets sick Verified 11/03/22 14:04 Penicillins AdvReac Mild heart Verified 11/03/22 14:04 races,rash General Stated Complaint: Chest/Rib ENRIQUE: 4 Review of Systems Narrative: Review of Systems Constitutional: negative Eyes: negative ENT: negative Cardiovascular: negative Respiratory: negative Gastrointestinal: negative : negative Musculoskeletal: rib pain Skin: rash Neurologic: negative Psych: negative PFSH All Active Problems (Updated 11/30/22 @ 17:11 by Reyes Barcenas MD) Herpes zoster (Acute) Lumbosacral spondylosis without myelopathy (Chronic) Back pain (Acute) Lumbar stenosis with neurogenic claudication (Chronic) Personal history of colonic polyps (Acute) 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 (Acute 05/10/14) Orthostatic syncope (Acute 08/05/16) Otosclerosis (Acute 05/10/14) Sensorineural hearing loss of right ear (Acute 05/09/15) Sensorineural hearing loss, asymmetrical (Acute 10/17/13) Sensorineural hearing loss, bilateral (Acute 04/25/13) wears b/l hearing aids Weight loss, abnormal (Acute) Lupus erythematosus (Chronic) Anxiety (Chronic) Sacroiliitis (Acute) Chondrodermatitis nodularis helicis of left ear (Acute) Mixed conductive and sensorineural hearing loss of left ear with restricted hearing of right ear (Acute) Chronic low back pain (Acute) Impacted cerumen, bilateral (Acute) Conductive hearing loss, external ear (Acute) Lumbosacral spondylosis without myelopathy (Acute) GERD (gastroesophageal reflux disease) (Chronic) Fibroids (Acute) Macrocytosis (Acute) Medical History AAA (abdominal aortic aneurysm) Abnormal mammogram of right breast Actinic keratosis Adenomatous colon polyp Allergic rhinitis Arthritis Benzodiazepine dependence CAD (coronary artery disease) *Possible* Celiac disease Chronic leukopenia Conductive hearing loss, external ear (02/18/16) Dental infection Disorder of left pinna Diverticulosis Dizziness Elevated LFTs Encounter for screening mammogram for breast cancer Epidermal inclusion cyst Gait instability Hearing deficit Hiatal hernia Hypothyroid Impacted cerumen of both ears Knee pain, left Left shoulder pain Leg cramps Low back pain Lumbar disc herniation with radiculopathy Lung nodule left lower lobe Lupus Mixed conductive and sensorineural hearing loss of left ear with restricted hearing of right ear (12/10/16) Neck pain S/P fall Noninfective disorders of pinna, left ear Onychomycosis Nail Osteoporosis Otalgia, left ear Panic disorder Paresthesias Poor dentition Preventative health care Right bundle branch block Sensorineural hearing loss (SNHL) of right ear with restricted hearing of left ear (12/10/16) Sensorineural hearing loss, bilateral (11/04/15) Skin rash Spinal stenosis Syncope Tobacco use Trigger thumb, left thumb Urinary incontinence Uterine fibroid Vitamin D deficiency Surgical History Cholecystectomy Colonoscopy - MAC (03/20/16) 2006 H/O cataract extraction Left eye H/O knee surgery Per patient record H/O stapedectomy History of tonsillectomy and adenoidectomy S/P AAA repair Family History Father Colon cancer Sister Lung cancer Sister Alcohol use disorder Sister Alcohol use disorder Brother , 72 Alcohol use disorder Cancer Son No problems noted. Son Substance use disorder Daughter No problems noted. 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 Pets and animals: Yes Pets and animals: dog(s) Current gender identity: female What is your relationship status?: How often do you talk on the phone with friends or family?: three or more times per week How often do you get together with friends or relatives?: decline to answer How often do you attend yarsanism or temple services?: decline to answer Do you belong to any clubs or organized social groups?: no Panel score (0-1 are the most socially isolated patients): 1 What type of physical activity do you participate in: none Frequency: does not exercise Francisca/Roman Catholic: Restorationism Special francisca needs: No Seatbelt use: always Drive intox or ride w/intox yard driver: No Do you feel safe at home: Yes Do you feel safe in your relationship?: Yes Exam Narrative Exam Narrative: Physical Examination General: alert, awake, cooperative, resting comfortably, no acute distress HEENT: normocephalic, atraumatic; PERRL, EOM intact, conjunctiva normal; no nasal discharge; moist mucous membranes, oral and pharyngeal mucosa normal, tolerating secretions Neck: supple, trachea midline; full ROM Chest: normal to inspection Respiratory: normal respiratory effort, speaking in full sentences, clear to auscultation, no wheezing, rales or rhonchi Cardiac: regular rate, regular rhythm, S1S2 intact, no murmurs rubs or gallops GI: abdomen soft, non-tender, non-distended; no palpable mass or hepatosplenomegaly Skin: Vesicular rash in dermatomal distribution of thoracic region left side not crossing the midline Neuro: AAOx3, normal speech, moving all extremities Extremities: Moving all extremities ambulatory without assistance Psych: Appropriate mood and affect Course Vital Signs Vital signs: Vital Signs Temperature 36.6 C 11/30/22 16:02 Pulse 78 11/30/22 16:02 Respiratory Rate 16 11/30/22 16:02 Blood Pressure 149/75 H 11/30/22 16:02 Pulse Oximetry 95 11/30/22 16:02 Temperature 36.6 C 11/30/22 16:02 Temperature Source Skin 11/30/22 16:02 Pulse 78 11/30/22 16:02 Respiratory Rate 16 11/30/22 16:02 Blood Pressure 149/75 H 11/30/22 16:02 Blood Pressure Position Sitting 11/30/22 16:02 Pulse Oximetry 95 11/30/22 16:02 Oxygen Delivery Method Room Air 11/30/22 16:02 Oxygen Flow Rate 0 11/30/22 16:02 Pain Level 8 11/30/22 16:02 Comment tylenol and ibuprofen don't help 11/30/22 16:02
[2022-11-30] MEDS: valACYclovir 1,000 MG TAB 1000 MG PO (17:18)
[2022-11-30] MEDS: Ketorolac 15 MG/ML VIAL IM (17:20)
== END 2022-11-30 17:33 | disposition home or self-care (01) ==
PROVIDERS: Emergency Provider Emergency Medicine; PCP Nurse Practitioner Family
DX: B02.9 Zoster without complications (principal)
CPT/HCPCS: 96372; 99284; J1885

== ENCOUNTER 2023-04-26 16:14 | Outpatient (REF) | payer MEDICARE, MEDICAID, SELFPAY ==
[2023-04-26 21:12] LABS: ALT 29 U/L (14-59); AST 22 U/L (15-37); Alkaline Phosphatase 117 U/L (46-116); BUN 14 mg/dL (7-18); Bilirubin, Total 0.7 mg/dL (0.2-1.0); CREATININE 0.6 mg/dL (0.55-1.02); Calcium 8.9 mg/dL (8.5-10.1); Calculated LDL 65 mg/dL (<100); Chloride 101 mmol/L (98-107); Cholesterol 127 mg/dL (<200); Estimated GFR 87.91 (mL/min/1.73m2); Glucose 84 mg/dL (74-106); HDL Cholesterol 49 mg/dL (40-60); Potassium 3.4 mmol/L (3.5-5.1); Sodium 141 mmol/L (136-145); Total Protein 6.3 g/dL (6.4-8.2); Triglyceride 65 mg/dL (<150)
== END 2023-04-26 16:15 | disposition home or self-care (01) ==
LOC: LBN 16:14
PROVIDERS: PCP Nurse Practitioner Family; Visit Provider Nurse Practitioner Family
DX: E78.5 Hyperlipidemia, unspecified (principal); E03.9 Hypothyroidism, unspecified; Z51.81 Encounter for therapeutic drug level monitoring
CPT/HCPCS: 80053; 80061; 84443

== ENCOUNTER 2023-06-07 11:48 | Emergency (ER) | payer MEDICARE, MEDICAID, SELFPAY ==
[2023-06-07 11:54] VITALS: BP 173/93; PULSE 79; RESP 16; TEMP 36.4; O2SAT 92
--- NOTE | 2023-06-07 12:21 | ED.GENADUL_ITS ---
Discharge Plan Disposition Patient Disposition: Home Condition: Stable Discharge Details Clinical Impression: Dizziness, nonspecific, Abdominal pain of unknown etiology Primary Care Provider: Oj Marinelli ED Provider: Leroy Chen Home Meds and New Rx's Prescriptions: Continued aspirin [Adult Aspirin Regimen] 81 mg tablet,delayed release (DR/EC) 81 mg PO DAILY atorvastatin 10 mg tablet 10 mg PO QHS Qty: 90 4RF levothyroxine 75 mcg tablet 75 mcg PO DAILY Qty: 90 4RF diclofenac sodium [Voltaren Arthritis Pain] 1 % gel 2 g topical QID Qty: 100 3RF cetirizine 10 mg tablet 10 mg PO DAILY Qty: 90 1RF lorazepam 1 mg tablet 1 mg PO TID PRN (Reason: anxiety) Qty: 90 5RF betamethasone valerate 0.12 % foam 1 applic topical BID clobetasol 0.05 % cream 1 applic topical DAILY PRN hydrocortisone 2.5 % cream 1 applic topical DAILY PRN (DME) Poise Pads Pad See Rx Instructions .Route Rx Instructions: As directed Ensure Original 0.04-1.05 gram-kcal/mL liquid 237 ml PO QID Qty: 51271 5RF omeprazole 40 mg capsule,delayed release(DR/EC) 40 mg PO DAILY Qty: 90 0RF Discharge Instructions Instructions: Abdominal Pain (ED), Dizziness (ED) Additional Instructions: You were seen in the emergency department for your intermittent dizziness. He also have acute on chronic pains with chronic lower back pain as well as postherpetic neuralgia which is common after shingles. He did have some abdominal pain and I do question whether there is a problem with your aortic graft. I had [facility] vascular surgery reviewed your CT scan I do not feel that there is any emergent leaking going on and they would like you to follow-up with them on an outpatient basis as you are overdue for some routine follow-up. Your laboratory workup shows no signs of significant infection, your cardiac workup is negative for any damage to the heart but I do recommend that you follow-up with an outpatient echocardiogram and possible stress test at earliest convenience. Please return to the ER for any chest pains, worsening abdominal pain especially with dizziness or near syncope. Referrals: [facility] [Provider Group] [facility] [Outside] (Vascular Surgery Offices) Dege Zora,Oj, [employer] [Primary Care Provider] - Discharge Data Discharge Date/Time-TO BE ENTERED AT DEPARTURE: 06/07/23 16:00 HPI General Date/Time Provider Initiated Documentation: 06/07/23 12:11 . HPI Narrative: 87 year-old female presents to ED today by POV/ambulating with a chief complaint of abdominal pain, dizzy spells, elevated BPs, chills with onset for the past few days. 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 Patient has a history of aortic graft to an abdominal aneurysm. Quality described as generalized abdominal pain, central/LLQ, denies nausea/vomiting, black/bloody stools, urinary frequency/urgency/retention, denies cough/shortness of breath, denies chest pain, denies syncope. Severity is described as 4-5/10. Palliating factors include nothing specific attempted. Provoking factors include nothing specific. Events leading up to the incident/Associated Symptoms: [ ]. Patient not anticoagulated. Related Data Home Medications Medication Instructions Recorded Confirmed aspirin 81 mg tablet,delayed 81 mg PO DAILY 02/27/19 05/05/23 release (Adult Aspirin Regimen) betamethasone valerate 0.12 % 1 applic topical BID 08/05/20 05/05/23 topical foam clobetasol 0.05 % topical cream 1 applic topical DAILY PRN 08/05/20 05/05/23 hydrocortisone 2.5 % topical cream 1 applic topical DAILY PRN 12/31/20 05/05/23 incontinence pad, liner, disp 03/30/22 05/05/23 (Poise Pads) food supplemt, lactose-reduced 237 ml PO QID #22,752 mL 05/22/22 05/05/23 0.04 gram-1.05 kcal/mL oral liquid (Ensure Original) atorvastatin 10 mg tablet 10 mg PO QHS #90 tabs 06/29/22 05/05/23 levothyroxine 75 mcg tablet 75 mcg PO DAILY #90 tabs 06/29/22 05/05/23 diclofenac sodium 1 % topical gel 2 g topical QID #100 grams 10/16/22 05/05/23 (Voltaren Arthritis Pain) omeprazole 40 mg capsule,delayed 40 mg PO DAILY #90 caps 01/05/23 05/05/23 release cetirizine 10 mg tablet 10 mg PO DAILY #90 tabs 01/15/23 05/05/23 lorazepam 1 mg tablet 1 mg PO TID PRN anxiety #90 tabs 04/26/23 05/05/23 Previous Rx's Medication Instructions Recorded food supplemt, lactose-reduced 237 ml PO QID #22,752 mL 05/22/22 0.04 gram-1.05 kcal/mL oral liquid (Ensure Original) atorvastatin 10 mg tablet 10 mg PO QHS #90 tabs 06/29/22 levothyroxine 75 mcg tablet 75 mcg PO DAILY #90 tabs 06/29/22 diclofenac sodium 1 % topical gel 2 g topical QID #100 grams 10/16/22 (Voltaren Arthritis Pain) omeprazole 40 mg capsule,delayed 40 mg PO DAILY #90 caps 01/05/23 release cetirizine 10 mg tablet 10 mg PO DAILY #90 tabs 01/15/23 lorazepam 1 mg tablet 1 mg PO TID PRN anxiety #90 tabs 04/26/23 Allergies Allergy/AdvReac Type Severity Reaction Status Date / Time meperidine HCl [From Demerol] AdvReac Severe made me Verified 06/07/23 11:57 very, very sick wheat AdvReac Severe Diarrhea Verified 06/07/23 11:57 azithromycin AdvReac Intermediate gets sick Verified 06/07/23 11:57 Penicillins AdvReac Mild heart Verified 06/07/23 11:57 races,rash General Stated Complaint: Dizzy/Sync ENRIQUE: 3 Review of Systems All systems reviewed & are unremarkable except as noted in HPI and below Exam Narrative Exam Narrative: GENERAL APPEARANCE: Frail, non-toxic, awake and alert, atraumatic, no acute distress. SKIN: Warm, pink, dry, intact, without rashes/lesions/ulcerations. HEAD: Normocephalic, atraumatic, normal hair distribution for gender/age. EYES: Pupils PERRLA, EOMs intact without nystagmus, normal conjunctiva, no exudates on lids/lashes. ENT: Nares patent, no circumoral cyanosis, no facial swelling NECK: Supple, trachea midline, painless cervical ROM. LUNGS/CHEST: Lungs CTA bilaterally- no rhonchi/rales/wheezes diffusely, non- labored respirations, normal A/P diameter, symmetrical expansion, no chest wall deformity HEART (CV/PV): Regular rate and rhythm without murmur, no peripheral edema, no JVD. ABDOMEN: Soft, non-distended, no guarding, exquisite tenderness LLQ- uncooperative with deep palpation, no pulsatile masses felt, no abdominal bruit. MSK: Normal ROM, no swelling/deformity to bilateral UEs or LEs, moving all extremities without weakness, no cyanosis, spine midline without tenderness, normal curvature. NEURO: Mental Status AAOx4 - alert to person, place, time, events No facial droop, no forehead involvement. Motor: No focal weakness - strength 5/5 in bilateral UEs and LEs, proximal and distal, symmetric. Sensory: sensation intact to light touch globally. Gait normal: patient ambulated without ataxia into ED room with cane, baseline. PSYCH: euthymic, cooperative, pleasant, appropriate speech Course Vital Signs Vital signs: Vital Signs Temperature 36.4 C L 06/07/23 11:54 Pulse 79 06/07/23 11:54 Respiratory Rate 16 06/07/23 11:54 Blood Pressure 173/93 H 06/07/23 11:54 Pulse Oximetry 92 06/07/23 11:54 Temperature 36.4 C L 06/07/23 11:54 Pulse 79 06/07/23 11:54 Respiratory Rate 16 06/07/23 11:54 Blood Pressure 173/93 H 06/07/23 11:54 Pulse Oximetry 92 06/07/23 11:54 Pain Level 9 06/07/23 11:54 Medical Decision Making This dictation utilizes [id number] dictation software and may contain unedited grammatical errors. 87 y/o F presents to ED today with a chief complaint of abdominal pain, dizzy spells, post-herpetic neuralgia pain that is complicating picture of possible deep abdominal pain. Patient has a history of EVAR aortic stent graft for AAA. Feels her belly is more distended than usual, denies bowel/urinary changes, denies URI symptoms, denies chest pain. Patients' medical history: Lumbar disc herniation with radiculopathy, paresthesias, gait instability, coronary artery disease, AAA, syncope, spinal stenosis, GERD, sacroiliitis. Family and social history: lives independently. Pertinent exam findings / vital signs include VSS, hypertensive, central abdominal pain without palpable abdominal pulsation. Differential / pathologies of concern include AAA etiology, TIA, CVA, BPPV, ACS, Vertigo, Viral Syndrome. Diagnostic studies of: -CBC, CMP, CRP/ESR, troponin, lactate, lipase, magnesium, TSH, BNP, urinalysis, procalcitonin, CT head without contrast, CTA of the thorax abdomen and pelvis. -CBC without leukocytosis, no anemia -CMP benign -lactate neg, procal neg- no sepsis -BNP elevated 790 -lipase wnl -UA benign -trop negative with reliable onset -CT head without acute abnormality, no evidence for CVA with 2-14 day onset -CTA Thorax/ABD/Pelvis shows possible small endoleak around graft- but optimal study phasing was not performed, Radiologist recommends against re-scan due to contrast load and patients age, recommends vascular surgery consult- which the patient had her AAA repair done at [facility]. Interventions of: -Consult [facility] Vascular Surgery-patient states that she does not want surgery, does not feel that she is a candidate for surgery at her age and general frailty status. She states that if vascular surgery recommends an optimal study that she would prefer to have it done as an outpatient tomorrow. ED Course/Assessment/Plan: 87-year-old female presents with some dizzy spells, onset in the past 2 to 14 days, has acute on chronic pain with exquisite abdominal tenderness feels that her abdomen is more distended than usual, I do not palpate any pulsatile mass or auscultate any abdominal bruit, there is a question of small endoleak from her aortic graft, discussed with [facility] Vascular Surgery Dr. Watson- no endoleak suspected- they will make a close follow-up appointment as she has missed some routine follow-up. I discussed this consult with the patient, question if their back is due to chronic sacroilitis, post-herpetic neuralgia, as well as diffuse stool seen on CTA study - the patient will try MiraLax for relief of possible constipation pain and engaged in shared decision making in regards to outpatient f/u w/ vascular surgery and strict return criteria for failure to improve or worsening after attempted trial of constipation relief. Findings not consistent with large AAA leak, ACS, CHF, respiratory failure. Disposition of Abdominal Pain of Unknown Etiology, Dizziness, non-specific. Patient verbalized understanding of the plan and return to ED criteria and engaged in shared decision making. Medical Records Medical records reviewed: Yes I reviewed the patient's medical records. Imaging Data Radiologic Study: Attestation: I personally reviewed and interpreted this imaging study as follows: Imaging: CT Scan Radiologist's impression: EXAM: CT HEAD WO CLINICAL HISTORY: dizziness. TECHNIQUE: Imaging Protocol: Axial computed tomography images with coronal and sagittal reformatted images were created and reviewed COMPARISON: CT CT HEAD WO from 02/23/2022 FINDINGS: There are no skull fractures. There is no fluid in the visualized paranasal sinuses. There is no evidence of intracranial hemorrhage, mass effect, or shift of midline structures. There are no extra-axial fluid collections. The ventricles are not enlarged or shifted and there is no blood within the ventricular system nor within the basal cisterns. There is a nonhemorrhagic lacunar infarct in the posterior aspect of the right thalamus, unchanged from 2021. No evidence of acute infarct. IMPRESSION: No acute intracranial findings on this noninfused CT scan of the brain. Unchanged nonhemorrhagic lacunar infarct noted in the pulvinar of the right thalamus, unchanged from prior CT scan of February 2022. Called by myself to ER. Radiologic Study #2: Attestation: I personally reviewed and interpreted this imaging study as follows: Imaging: CT Scan Radiologist's impression: EXAM: CT THORAX ABD/PEL CTA CLINICAL HISTORY: abdominal distention, known aneurysm, dizzy. TECHNIQUE: Imaging Protocol: Axial computed tomography images with coronal and sagittal reformatted images were created and reviewed CONTRAST MATERIAL: Intravenous: Omnipaque 350 Contrast volume:100 ml Oral: None COMPARISON: CT CT ABDOMEN PELVIS CTA from 05/31/[address] CHEST PE CTA from 12/29/2021 FINDINGS: CHEST: AORTA: The diameter of the ascending thoracic aorta is 3.7 cm.. Diameter of the aortic arch is normal. There is aneurysmal dilatation of the descending thoracic aorta, more so than previous, presently measuring 4 cm. Below this level the most distal thoracic aorta exhibits upper normal size. LUNGS: There is mild infiltrate in the lingular segment of the left lung and in the medial segment and subpleural lateral segment of the right middle lobe. No associated pleural effusions nor bone destruction.. MEDIASTINUM: There is no hilar nor mediastinal adenopathy. Visualized thyroid unremarkable. CARDIAC: Heart size is normal. There is no pericardial effusion. ABDOMEN: AORTA: There has been interval placement of an aortic EVAR stent graft extending from immediately below the renal artery takeoffs and with the distal limb anastomoses at the level the distal common iliac arteries bilaterally. The maximum diameter of the [place] aortic sac is 4.2 cm, as there is no contrast extravasation into the [place] excluded aortic sac realizing that this is an arterial only phase st udy with no delayed sequence having been performed. There is no evidence of obvious proximal nor distal anastomosis leak. There is no ascites. LIVER: There are no focal hepatic lesions nor dilatation of intrahepatic ducts. GALLBLADDER/BILIARY: Gallbladder is again noted be surgically absent. Again noted is significant dilatation of the common bile duct, unchanged. There is no obvious radiopaque calculus in the lower CBD. No obvious mass at this level. PANCREAS: Pancreas is somewhat difficult to delineate due to the paucity of retroperitoneal fat but there is no obvious pancreatic mass evident. SPLEEN: Subcapsular cyst in the posterior aspect of the spleen is again noted. It has slightly increased in size but remains benign appearance, presently measuring 2.2 cm wide by 2 cm AP. ADRENALS: There are no significant adrenal masses. KIDNEYS: No cysts evident. Dilatation of the bilateral renal pelves is noted, more so than previous. There is no obvious dilatation of the ureters.. ABDOMINAL AORTA: See above LYMPH NODES: There is no retroperitoneal nor para-aortic adenopathy. No obvious mesenteric masses. ABDOMINAL WALL: No evidence of significant anterior abdominal wall hernia. GI: There is no evidence of bowel obstruction, free air, nor abscess.No obvious ischemic appearing bowel loops. PELVIS: LYMPH NODES: There is no intrapelvic nor inguinal adenopathy. GI: Appendix can not be identified as a separate structure but there are no obvious secondary signs of acute appendicitis.No evidence of sigmoid diverticulitis. URINARY BLADDER: No calculi nor masses evident REPRODUCTIVE: Uterus is anteverted. Normal size. No abnormal adnexal masses seen. No free fluid. OSSEOUS: There is a mild compression fracture at superior endplate level of L1 which was not evident on the CT scan of May 2020 but is unchanged from CT scan of 12/29/2021. IMPRESSION: 1. Compared to the prior studies there has been placement of an abdominal aortic EVAR stent graft which appears patent without intragraft stenosis. The maximum diameter of the [place] aortic sac is 4.2 cm. Possibility of endoleak from the EVAR cannot be excluded as there is no delayed sequence.. There are few suspicious vessels around the EVAR. Recommend more dedicated imaging with EVAR leak protocol. 2. There is subpleural infiltrate in the lateral segment of the right middle lobe. Also medially in the right middle lobe and in the lingular segment of the left lung. There are no pleural effusions. 3. Gallbladder is again noted be surgically absent. CBD is again noted be dilat ed. Correlation with blood work recommended. 4. Benign-appearing subcapsular cyst in the posterior aspect of the liver has increased in size from previous study, presently measuring 2.2 x 2.0 cm. Stable appearance of L1 superior endplate compression fracture, unchanged from 12/29/2021. Discussed by phone with ER provider Lab Data Lab results reviewed: Yes I reviewed the patient's lab results. Labs: Laboratory Tests Range/Units 06/07/23 06/07/23 12:35 13:41 WBC (4.4-10.8) 10^3/uL 7.45 RBC (3.93-5.22) 10^6/uL 4.38 Hgb (11.2-15.7) g/dL 13.4 Hct (36.0-46.0) % 40.9 MCV (80-95) fL 93 MCH (27.0-33.0) pg 30.6 MCHC (32.0-36.0) % 32.8 RDW (11.7-14.6) % 13.6 Plt Count (130-400) 10^3/uL 194 MPV (8.0-11.0) fL 8.9 Immature Gran % 0.1 Neutrophils % 76.8 Lymphocytes % 12.6 Monocytes % 8.9 Eosinophils % 1.2 Basophils % 0.4 Nucleated RBC % (0.0-0.3) % 0.0 Absolute Neutrophils (1.2-6.7) 10^3/uL 5.72 Absolute Lymphocytes (1.2-3.4) 10^3/uL 0.94 L Absolute Monocytes (0.1-0.8) 10^3/uL 0.66 Absolute Eosinophils (0.0-0.7) 10^3/uL 0.09 Absolute Basophils (0.0-0.2) 10^3/uL 0.03 ESR (0-30) mm/hr 3 VBG Lactate (0.6-1.4) mmol/L 0.7 Sodium (136-145) mmol/L 142 Potassium (3.5-5.1) mmol/L 3.8 Chloride (98-107) mmol/L 103 Carbon Dioxide (21.0-32.0) mmol/L 31.6 Anion Gap (3-11) mmol/L 7.4 BUN (7-18) mg/dL 10 Creatinine (0.55-1.02) mg/dL 0.7 Est GFR (CKD-EPI 2020) (mL/min/1.73m2) 84.70 Glucose (74-106) mg/dL 92 Calcium (8.5-10.1) mg/dL 8.7 Magnesium (1.8-2.4) mg/dL 2.1 Total Bilirubin (0.2-1.0) mg/dL 0.5 AST (15-37) U/L 20 ALT (14-59) U/L 19 Alkaline Phosphatase (46-116) U/L 142 H Troponin I (< or =60) ng/L < 50 C-Reactive Protein (<or=0.5) mg/dL < 0.50 NT-Pro-B Natriuret Pep (<300) pg/mL 790 H Total Protein (6.4-8.2) g/dL 6.1 L Albumin (3.4-5.0) g/dL 3.3 L Lipase (16-77) U/L 24 Procalcitonin ng/mL < 0.1 TSH (0.36-3.74) uIU/mL 2.20 Urine Color (Yellow) Yellow Urine Clarity (Clear) Clear Urine pH (5-8) 7.0 Ur Specific Peyton (1.005-1.025) 1.010 Urine Protein (Neg-Trace) mg/dL Negative Urine Ketones (Negative) mg/dL Negative Urine Blood (Negative) Negative Urine Nitrite (Negative) Negative Urine Bilirubin (Negative) Negative Urine Urobilinogen (Up to 0.2) mg/dL 1.0 H Ur Leukocyte Esterase (Negative) Negative Urine Glucose (Negative) mg/dL Negative Quality:SDOH Health Related Social Needs: No Data to Display PFSH All Active Problems (Updated 06/07/23 @ 15:44 by ARLETTE Veloz) Abdominal pain of unknown etiology (Acute) Dizziness, nonspecific (Acute) Therapeutic drug monitoring (Acute) Hypothyroid (Chronic) Celiac disease (Acute) Post herpetic neuralgia (Acute) Macrocytosis (Acute) Fibroids (Acute) GERD (gastroesophageal reflux disease) (Chronic) Lumbosacral spondylosis without myelopathy (Acute) Conductive hearing loss, external ear (Acute) Impacted cerumen, bilateral (Acute) Chronic low back pain (Acute) Mixed conductive and sensorineural hearing loss of left ear with restricted hearing of right ear (Acute) Chondrodermatitis nodularis helicis of left ear (Acute) Sacroiliitis (Acute) Anxiety (Chronic) Lupus erythematosus (Chronic) Weight loss, abnormal (Acute) Sensorineural hearing loss, bilateral (Acute 04/25/13) wears b/l hearing aids Sensorineural hearing loss, asymmetrical (Acute 10/17/13) Sensorineural hearing loss of right ear (Acute 05/09/15) Otosclerosis (Acute 05/10/14) Orthostatic syncope (Acute 08/05/16) Mixed hearing loss of left ear (Acute 05/10/14) 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) Personal history of colonic polyps (Acute) Lumbar stenosis with neurogenic claudication (Chronic) Back pain (Acute) Lumbosacral spondylosis without myelopathy (Chronic) Medical History Epidermal inclusion cyst Paresthesias Lumbar disc herniation with radiculopathy Arthritis Lupus Actinic keratosis Poor dentition Left shoulder pain Noninfective disorders of pinna, left ear Disorder of left pinna Dental infection Otalgia, left ear Benzodiazepine dependence Leg cramps Encounter for screening mammogram for breast cancer Preventative health care Gait instability Impacted cerumen of both ears Onychomycosis Nail Diverticulosis CAD (coronary artery disease) *Possible* Hearing deficit Hiatal hernia Tobacco use Right bundle branch block Uterine fibroid Trigger thumb, left thumb Osteoporosis Vitamin D deficiency Allergic rhinitis Urinary incontinence Adenomatous colon polyp Low back pain Panic disorder Hypothyroid AAA (abdominal aortic aneurysm) Spinal stenosis Celiac disease Syncope Dizziness Skin rash Knee pain, left Abnormal mammogram of right breast Lung nodule left lower lobe Elevated LFTs Neck pain S/P fall Chronic leukopenia Sensorineural hearing loss, bilateral (11/04/15) Sensorineural hearing loss (SNHL) of right ear with restricted hearing of left ear (12/10/16) Mixed conductive and sensorineural hearing loss of left ear with restricted hearing of right ear (12/10/16) Conductive hearing loss, external ear (05/09/15) Surgical History H/O knee surgery Per patient record H/O cataract extraction Left eye S/P AAA repair H/O stapedectomy History of tonsillectomy and adenoidectomy Colonoscopy - MAC (03/20/16) 2007 Cholecystectomy Family History Father Colon cancer Sister Lung cancer Sister Alcohol use disorder Sister Alcohol use disorder Brother , 72 Alcohol use disorder Cancer Son No problems noted. Son Substance use disorder Daughter No problems noted. 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 Pets and animals: Yes Pets and animals: dog(s) Current gender identity: female What is your relationship status?: How often do you talk on the phone with friends or family?: three or more times per week How often do you get together with friends or relatives?: decline to answer How often do you attend yazidism or taoism services?: decline to answer Do you belong to any clubs or organized social groups?: no Panel score (0-1 are the most socially isolated patients): 1 What type of physical activity do you participate in: none Frequency: does not exercise Francisca/Quaker: Orthodoxy Special francisca needs: No Seatbelt use: always Drive intox or ride w/intox motorcycle 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
[2023-06-07 12:33] VITALS: RESP 18
[2023-06-07 12:43] LABS: Abs Immature Grans 0.01 10^3/uL (0.0-0.06); Absolute Basophil Count 0.03 10^3/uL (0.0-0.2); Absolute Eosinophil Count 0.09 10^3/uL (0.0-0.7); Absolute Lymphocyte Count 0.94 10^3/uL (1.2-3.4); Absolute Monocyte Count 0.66 10^3/uL (0.1-0.8); Absolute Neutrophil Count 5.72 10^3/uL (1.2-6.7); Basophils % 0.4; Eosinophils % 1.2; HCT 40.9 % (36.0-46.0); HGB 13.4 g/dL (11.2-15.7); Immature Grans % 0.1; Lactate 0.7 mmol/L (0.6-1.4); Lymphocytes % 12.6; MCH 30.6 pg (27.0-33.0); MCHC 32.8 % (32.0-36.0); MCV 93 fL (80-95); MPV 8.9 fL (8.0-11.0); Monocytes % 8.9; Neutrophils % 76.8; Platelet Count 194 10^3/uL (130-400); RBC 4.38 10^6/uL (3.93-5.22); RDW 13.6 % (11.7-14.6); RDW-SD 47.1 fL; WBC 7.45 10^3/uL (4.4-10.8)
[2023-06-07 12:46] LABS: ESR 3 mm/hr (0-30)
[2023-06-07 13:28] LABS: Procalcitonin < 0.1 ng/mL
[2023-06-07 13:30] LABS: ALT 19 U/L (14-59); AST 20 U/L (15-37); Albumin 3.3 g/dL (3.4-5.0); Alkaline Phosphatase 142 U/L (46-116); Anion Gap 7.4 mmol/L (3-11); BUN 10 mg/dL (7-18); Bilirubin, Total 0.5 mg/dL (0.2-1.0); C-Reactive Protein < 0.50 mg/dL (<or=0.5); CO2 31.6 mmol/L (21.0-32.0); CREATININE 0.7 mg/dL (0.55-1.02); Calcium 8.7 mg/dL (8.5-10.1); Chloride 103 mmol/L (98-107); Glucose 92 mg/dL (74-106); Lipase 24 U/L (16-77); Magnesium 2.1 mg/dL (1.8-2.4); NT-proBNP 790 pg/mL (<300); Potassium 3.8 mmol/L (3.5-5.1); Sodium 142 mmol/L (136-145); Total Protein 6.1 g/dL (6.4-8.2); Troponin I < 50 ng/L (< or =60)
[2023-06-07 13:49] LABS: Bilirubin Negative (Negative); Blood Negative (Negative); Clarity Clear (Clear); Glucose Negative (Negative); Ketones Negative (Negative); Leukocyte Esterase Negative (Negative); Nitrite Negative (Negative)
[2023-06-07] MEDS: Normal Saline - Diluent 50 ML VIAL IJ (13:56)
[2023-06-07] MEDS: Omnipaque 350 MG/ML 100 ML BTL IJ (13:57)
--- NOTE | 2023-06-07 14:03 | DI.CT_ITS ---
Exam(s) CT HEAD WO EXAM: CT HEAD WO CLINICAL HISTORY: dizziness. TECHNIQUE: Imaging Protocol: Axial computed tomography images with coronal and sagittal reformatted images were created and reviewed COMPARISON: CT CT HEAD WO from 02/23/2022 FINDINGS: There are no skull fractures. There is no fluid in the visualized paranasal sinuses. There is no evidence of intracranial hemorrhage, mass effect, or shift of midline structures. There are no extra-axial fluid collections. The ventricles are not enlarged or shifted and there is no blo od within the ventricular system nor within the basal cisterns. There is a nonhemorrhagic lacunar infarct in the posterior aspect of the right thalamus, unchanged fr om 2021. No evidence of acute infarct. IMPRESSION: No acute intracranial findings on this noninfused CT scan of the brain. Unchanged nonhemorrhagic lacunar infarct noted in the pulvinar of the right thalamus, unchanged from prior CT scan of February 2022. Called by myself to ER. RADIATION DOSE DELIVERED: Total DLP DATA REPOSITORY: All CT scans at this facility are submitted to the National Radiology Data Registry (NRDR) Dose Index Registry (DIR) with the [employer] (ACR). RADIATION OPTIMIZATION: All CT scans at this facility use at least one of these dose optimization te chniques: automated exposure control; mA and/or kV adjustment per patient size (includes targeted exa ms where dose is matched to clinical indication); or iterative reconstruction.
--- NOTE | 2023-06-07 14:13 | DI.CT_ITS ---
Exam(s) CT THORAX ABD/PEL CTA EXAM: CT THORAX ABD/PEL CTA CLINICAL HISTORY: abdominal distention, known aneurysm, dizzy. TECHNIQUE: Imaging Protocol: Axial computed tomography images with coronal and sagittal reformatted images were created and reviewed CONTRAST MATERIAL: Intravenous: Omnipaque 350 Contrast volume:100 ml Oral: None COMPARISON: CT CT ABDOMEN PELVIS CTA from 05/31/[address] CHEST PE CTA from 12/29/2021 FINDINGS: CHEST: AORTA: The diameter of the ascending thoracic aorta is 3.7 cm.. Diameter of the aortic arch is normal. The re is aneurysmal dilatation of the descending thoracic aorta, more so than previous, presently measur ing 4 cm. Below this level the most distal thoracic aorta exhibits upper normal size. LUNGS: There is mild infiltrate in the lingular segment of the left lung and in the medial segment an d subpleural lateral segment of the right middle lobe. No associated pleural effusions nor bone dest ruction.. MEDIASTINUM: There is no hilar nor mediastinal adenopathy. Visualized thyroid unremarkable. CARDIAC: Heart size is normal. There is no pericardial effusion. ABDOMEN: AORTA: There has been interval placement of an aortic EVAR stent graft extending from immediately below the renal artery takeoffs and with the distal limb anastomoses at the level the distal common iliac arter ies bilaterally. The maximum diameter of the lumbee aortic sac is 4.2 cm, as there is no contrast ex travasation into the lumbee excluded aortic sac realizing that this is an arterial only phase study w ith no delayed sequence having been performed. There is no evidence of obvious proximal nor distal a nastomosis leak. There is no ascites. LIVER: There are no focal hepatic lesions nor dilatation of intrahepatic ducts. GALLBLADDER/BILIARY: Gallbladder is again noted be surgically absent. Again noted is significant dil atation of the common bile duct, unchanged. There is no obvious radiopaque calculus in the lower CBD . No obvious mass at this level. PANCREAS: Pancreas is somewhat difficult to delineate due to the paucity of retroperitoneal fat but t here is no obvious pancreatic mass evident. SPLEEN: Subcapsular cyst in the posterior aspect of the spleen is again noted. It has slightly incre ased in size but remains benign appearance, presently measuring 2.2 cm wide by 2 cm AP. ADRENALS: There are no significant adrenal masses. KIDNEYS: No cysts evident. Dilatation of the bilateral renal pelves is noted, more so than previous. There is no obvious dilatation of the ureters.. ABDOMINAL AORTA: See above LYMPH NODES: There is no retroperitoneal nor para-aortic adenopathy. No obvious mesenteric masses. ABDOMINAL WALL: No evidence of significant anterior abdominal wall hernia. GI: There is no evidence of bowel obstruction, free air, nor abscess.No obvious ischemic appearing adriana wel loops. PELVIS: LYMPH NODES: There is no intrapelvic nor inguinal adenopathy. GI: Appendix can not be identified as a separate structure but there are no obvious secondary signs o f acute appendicitis.No evidence of sigmoid diverticulitis. URINARY BLADDER: No calculi nor masses evident REPRODUCTIVE: Uterus is anteverted. Normal size. No abnormal adnexal masses seen. No free fluid. OSSEOUS: There is a mild compression fracture at superior endplate level of L1 which was not evident on the CT scan of May 2020 but is unchanged from CT scan of 12/29/2021. IMPRESSION: 1. Compared to the prior studies there has been placement of an abdominal aortic EVAR stent graft whi ch appears patent without intragraft stenosis. The maximum diameter of the lumbee aortic sac is 4.2 cm. Possibility of endoleak from the EVAR cannot be excluded as there is no delayed sequence.. Ther e are few suspicious vessels around the EVAR. Recommend more dedicated imaging with EVAR leak protoc ol. 2. There is subpleural infiltrate in the lateral segment of the right middle lobe. Also medially in the right middle lobe and in the lingular segment of the left lung. There are no pleural effusions. 3. Gallbladder is again noted be surgically absent. CBD is again noted be dilated. Correlation with blood work recommended. 4. Benign-appearing subcapsular cyst in the posterior aspect of the liver has increased in size from previous study, presently measuring 2.2 x 2.0 cm. Stable appearance of L1 superior endplate compression fracture, unchanged from 12/29/2021. Discussed by phone with ER provider RADIATION DOSE DELIVERED: Total DLP DATA REPOSITORY: All CT scans at this facility are submitted to the National Radiology Data Registry (NRDR) Dose Index Registry (DIR) with the [employer] (ACR). RADIATION OPTIMIZATION: All CT scans at this facility use at least one of these dose optimization te chniques: automated exposure control; mA and/or kV adjustment per patient size (includes targeted exa ms where dose is matched to clinical indication); or iterative reconstruction.
== END 2023-06-07 16:00 | disposition home or self-care (01) ==
PROVIDERS: Emergency Provider Physician Assistant; PCP Nurse Practitioner Family
DX: R42 Dizziness and giddiness (principal); M32.9 Systemic lupus erythematosus, unspecified; I25.10 Atherosclerotic heart disease of native coronary artery without angina pectoris; Z79.82 Long term (current) use of aspirin
CPT/HCPCS: 36415; 71275; 80053; 83690; 84145; 85652; 99285; 70450; 74174; 81003; 83605; 83735; 83880; 84443; 84484; 85025; 86140; 99284; J3490

== ENCOUNTER → 2023-08-23 12:53 | Outpatient (BNVA) | payer MEDICARE, MEDICAID, SELFPAY | PROVIDERS: PCP Nurse Practitioner Family; Referring Provider Nurse Practitioner Family; Visit Provider Podiatrist | DX: B35.1 Tinea unguium (principal); L60.3 Nail dystrophy; R09.89 Other specified symptoms and signs involving the circulatory and respiratory systems; L65.9 Nonscarring hair loss, unspecified; L60.8 Other nail disorders | CPT/HCPCS: 11721; 99204 ==

== ENCOUNTER 2024-02-16 00:56 | Outpatient (CLI) | payer MEDICARE, MEDICAID, SELFPAY ==
--- NOTE | 2024-02-16 14:30 | DI.MRI_ITS ---
Exam(s) MR LUMBAR SPINE WO EXAM: MR LUMBAR SPINE WO CLINICAL HISTORY: increased pain, referred back to pain clinic, stenosis neurogenic claudicat. TECHNIQUE: Multiplanar multisequence MRI of the Lumbar spine was performed. COMPARISON: MR MR LUMBAR SPINE WO from 05/24/[address] THORAX ABD/PEL CTA from 06/07/2023 FINDINGS: Conus medullaris is at normal level. There is no evidence of conus mass nor subjacent clumping of in trathecal nerve roots to suggest arachnoiditis. The distal thecal sac appears unremarkable.There is no evidence of Tarlov intrasacral cysts nor other significant findings within the sacral canal Bones:There is a stable L1 compression fracture again noted, unchanged from images of 2021. This was not evident on MRI scan of May 2019. There is no further height loss of the L1 vertebral body and no bone edema within this vertebral body at this time. There is no significant posterior displaceme nt of the posterior cortex of L1 vertebral body. No canal stenosis at this level. There are no acut e fractures nor ominous osseous lesions in the lumbar vertebral bodies and visualized sacrum. Mild s coliosis is noted. With respect to the individual levels... T12-L1: Normal disc height. Posteriorly there is a shallow central subligamentous disc bulge. This has decreased in size when compared to the MRI scan of May 2019. There is no significant central c anal stenosis nor foraminal stenosis at this level. Facet joints appear unremarkable. L1-2: Normal disc height and signal. No disc herniation nor central canal stenosis.No foraminal steno sis on the right side. On the left side there is mild foraminal stenosis related to mild degenerativ e changes in the facet joint. L2-3: Normal disc height. Posterior aspect of the disc exhibits normal concave configuration. Howeve r, at the level of the exiting left neural foramen there is an asymmetric annular bulge into the exit ing left neural foramen floor. This, however, does not appear to be causing significant spinal canal stenosis at this level. This appears unchanged from the MRI study of 2019.There is no significant f oraminal stenosis on either side.There is no significant facet arthropathy. L3-4: Normal disc height. Posteriorly there is no disc herniation and central canal dimensions are l ower normal. However, there is annular bulging into the floor of both exiting neural foramina which results in mild-moderate left-sided foraminal stenosis and mild right-sided foraminal stenosis. Find ings are relatively similar to 2020 but with slight increase in foraminal stenosis on the left side d ue to slight increase in annular bulging in the exiting left neural foramen.There is mild degenerativ e change in the facet joints. L4-5: This level exhibits normal disc height on the left side and centrally but with some asymmetric disc height loss on the right side of the disc space, similar to 2020. Posteriorly there is some kyaw ular bulging with mild central canal stenosis. There is annular bulging into the floor of the exitin g right neural foramen with mild-moderate right-sided foraminal stenosis at this level, similar to pr evious this foraminal stenosis is compound by moderate degenerative change in the right facet joint, similar to previous. There is only mild narrowing of the opposite-left exiting neural foramen at thi s level with lesser amount of annular bulging into the exiting left neural foramen. L5-S1: Normal disc height centrally but with some asymmetric narrowing of the right-side of the disc space, similar to previous.. Mild symmetrical annular bulging without a distinct disc herniation. C entral canal dimensions are within normal limits. There is degenerative change in the facet joints m ore so left than right which is similar to the prior study. There is no foraminal stenosis on the le ft side. Mild foraminal stenosis again noted on the right side at this level, this related to the sl ightly asymmetric disc height loss on the right side of the disc space. Soft tissues: Immediate paraspinal soft tissues appear unremarkable.However, there is a subcapsular cyst in the posterior spleen which has slightly increased in size from 2020. IMPRESSION: 1. Mild-moderate multilevel findings as described per individual level above. 2. There is no prominent central spinal canal stenosis. There is some asymmetric foraminal stenosis at left side at L1-2 level and on the left side at L3-4 level and on the right side at L4-5 level and on the right side at L5-S1. See above. 3. Stable appearance of the L1 compression fracture which was not evident in 2019 but which has been present on plain film images dating back to 2021. There has been no further height loss and there is no compromise of the spinal canal at this level. Incidental note of a subcapsular cyst in the posterior aspect of the upper spleen. This cyst present ly measures 2.5 cm wide by 1.6 cm AP by 2.5 cm craniocaudal, slightly increased in size from 2020. DATA REPOSITORY:
== END 2024-02-16 01:16 ==
LOC: DI 00:56
PROVIDERS: PCP Nurse Practitioner Family; Visit Provider Nurse Practitioner Family
DX: M48.061 Spinal stenosis, lumbar region without neurogenic claudication
CPT/HCPCS: 72148

== ENCOUNTER 2024-03-27 14:31 | Outpatient (CLI) | payer MEDICARE, MEDICAID, SELFPAY ==
[2024-03-27 14:53] VITALS: BP 142/80; PULSE 81; RESP 18; TEMP 36.4; O2SAT 91
--- NOTE | 2024-03-27 14:54 | PDOC.PAIN ---
Date of service: 03/27/24 Time of Service: 15:28 Pain Managment Procedure Note Procedure Note Procedure Note: ?Sacroiliac Joint Steroid Injection ? Location: Bilateral SI Joints? Pre-procedure Diagnosis: Sacroiliitis, not elsewhere classified - M46.1 ? Post-procedure Diagnosis:? The same as above ? Sedation:? NONE ? Medication: Depo-Medrol 40 mg, bupivacaine 0.5% 1 mL, Omnipaque 0.25 mL per joint ? Estimated blood loss:? less than 2 cc ? Surgeon:? Lio Hamilton MD ? COMMENT: THIS WILL BE BOTH DIAGNOSTIC AND THERAPEUTIC ? Procedure Detail:? The procedure and potential risks were explained to the patient and informed written consent was obtained. The patient was escorted to the procedure room and placed in the prone position. Pillows were utilized for proper positioning and comfort. Time out was performed in the procedure room with nursing staff confirming the patient's identity, procedure to be performed, allergies, and any blood thinning or anti-platelet medications. The patient's lumbosacral area was prepped with ChloraPrep and draped in a sterile fashion. Sterile technique was maintained throughout the procedure.? Sterile gloves were used, a face mask was worn, and new single dose vials of all medications were used with the top being swabbed with alcohol and given time to dry prior to withdrawal of medication. Lidocaine 1% was used to anesthetize the skin. With fluoroscopic guidance, a 22-gauge 3.5 spinal needle was advanced into the posteroinferior aspect of the Bilateral SI joint. Confirmation of intra-articular position of the needle tip was obtained with injection of 0.25cc of Omnipaque 240 contrast which showed appropriate spread within the joint.? Following negative aspiration, 40mg of methylprednisolone mixed with 1 mL of bupivacaine 0.5% was injected.? The needle was gently removed. ?The patient tolerated the procedure well and was transported to the recovery area for observation and discharge instructions.? Permanent images saved and recorded. Plan:? Follow up prn. PAIN PRE PROCEDURE 1010 POST PROCEDURE 010 COMMENT: 100 % BETTER AFTER INJECTION
[2024-03-27 15:10] VITALS: O2SAT 88
[2024-03-27 15:20] VITALS: O2SAT 89
[2024-03-27] MEDS: Nerve Block Tray 1 EACH MC (15:28)
--- NOTE | 2024-03-27 15:28 | DI.RAD_ITS ---
Exam(s) XR PAIN CLINIC SACRIOILIAC 2V EXAM: XR PAIN CLINIC SACRIOILIAC 2V CLINICAL HISTORY: Dx: Sacroiliac Dysfunction TECHNIQUE: 2D and realtime digital imaging was performed. Radiologist not present. CONTRAST MATERIAL: None. COMPARISON: No exams were available for comparison FINDINGS: Fluoroscopy was provided for pain management therapy. Sacroiliac joint therapeutic injections Please refer to procedure report or details. Radiation Exposure Index: Ka,r=7.72 mGy IMPRESSION: As above. RADIATION DOSE DELIVERED:
[2024-03-27] MEDS: Bupivacaine 0.5% Pres-Free 10 ML VIAL IJ (15:29)
[2024-03-27] MEDS: methylPREDNISolone ACETATE 80 MG/ML VIAL IJ (15:29)
[2024-03-27] MEDS: Omnipaque 240 MG/ML 50 ML BTL IJ (15:29)
== END 2024-03-27 14:32 | disposition home or self-care (01) ==
LOC: PC 14:31
PROVIDERS: PCP Nurse Practitioner Family; Visit Provider Anesthesiology Pain Medicine
DX: M54.50 Low back pain, unspecified (principal); M46.1 Sacroiliitis, not elsewhere classified
CPT/HCPCS: 00123; 27096; 72200; J0665; J1010; Q9967

== ENCOUNTER 2024-05-08 22:11 | Outpatient (REF) | payer MEDICARE, MEDICAID, SELFPAY ==
[2024-05-08 21:40] LABS: TSH (W/Ref FT4) 1.85 uIU/mL (0.36-3.74)
== END 2024-05-08 22:12 | disposition home or self-care (01) ==
LOC: LBN 22:11
PROVIDERS: PCP Nurse Practitioner Family; Visit Provider Nurse Practitioner Family
DX: E03.9 Hypothyroidism, unspecified (principal); R63.4 Abnormal weight loss; I10 Essential (primary) hypertension; B02.29 Other postherpetic nervous system involvement
CPT/HCPCS: 84443

== ENCOUNTER 2024-07-08 16:08 | Outpatient (REF) | payer MEDICARE, MEDICAID, SELFPAY ==
[2024-07-10 10:11] LABS: HSV 1 DNA Result Negative (Negative); HSV 2 DNA Result Negative (Negative); Varicella Zoster DNA Result Negative (Negative)
== END 2024-07-08 16:09 | disposition home or self-care (01) ==
LOC: LBN 16:08
PROVIDERS: PCP Nurse Practitioner Family; Visit Provider Nurse Practitioner Family
DX: R21 Rash and other nonspecific skin eruption (principal)
CPT/HCPCS: 87529; 87798

== ENCOUNTER 2024-07-27 00:50 | Outpatient (CLI) | payer MEDICARE, MEDICAID, SELFPAY ==
[2024-07-27 13:43] LABS: CREATININE 0.8 mg/dL (0.55-1.02); Estimated GFR 71.71 (mL/min/1.73m2)
[2024-07-27] MEDS: Normal Saline - Diluent 50 ML VIAL IJ (13:57)
[2024-07-27] MEDS: Omnipaque 350 MG/ML 100 ML BTL IJ (14:02)
--- NOTE | 2024-07-27 14:07 | DI.CT_ITS ---
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 TECHNIQUE: Imaging Protocol: Axial computed tomography images with coronal and sagittal reformatted images were created and reviewed CONTRAST MATERIAL: Intravenous: Omnipaque 350 Contrast volume:100 ml Oral: None COMPARISON: CT CT THORAX ABD/PEL CTA from 06/07/2023 FINDINGS: Visualized lung bases are clear. Heart size is normal. There is no pericardial effusion. ABDOMEN: Again noted is an aortic EVAR which again extends from just below the renal artery takeoff points to distal anastomosis at the junction of the common and external iliac arteries. This study does not appear to have been performed with aortic EVAR protocol. There is only an arteri al phase sequence. There is no precontrast sequence and no delayed post-contrast sequence.. The max imum external diameter of the eyak aortic sac is 4.4 cm. This appears slightly larger than previou s and although the appearance is unchanged from the previous study this study requires repeating with complete protocol to demonstrate the possibility of an endoleak. On this arterial only phase study there is no evidence of obvious anastomosis leak. No evidence of i ntra stent stenosis. No evidence of significant stenosis at the distal anastomoses nor in the coal chemist al iliac arteries and common femoral arteries distal to the prosthesis. The paucity of intraperitoneal fat again mate evaluation of bowel another structure somewhat difficul t but there does not appear to be an acute inflammatory process in the abdomen and pelvis. LIVER: There are no obvious focal hepatic lesions nor dilatation of intrahepatic ducts. GALLBLADDER/BILIARY: Gallbladder again noted be surgically absent. CBD is again noted to be dilated. . PANCREAS: Pancreas is difficult to visualize because of the paucity of retroperitoneal fat. However, there is no obvious mass in this region. SPLEEN: Spleen size is upper normalz. No splenic lesionsz evident. ADRENALS: There are no significant adrenal masses. KIDNEYS: Bilateral extrarenal pelves are again noted . kidney size is unchanged.. LYMPH NODES: There is no retroperitoneal nor para-aortic adenopathy. No obvious mesenteric masses. ABDOMINAL WALL: No evidence of significant anterior abdominal wall hernia. GI: There is no evidence of bowel obstruction, free air, nor abscess. PELVIS: LYMPH NODES: There is no intrapelvic nor inguinal adenopathy. GI: No evidence of appendicitis.No evidence of sigmoid diverticulitis. URINARY BLADDER: No calculi nor masses evident REPRODUCTIVE: Age-appropriate. No abnormal adnexal masses nor free fluid in the pelvis. OSSEOUS: No significant osseous lesions. No acute fractures. Compression fracture of L1 is unchange d from previous. IMPRESSION: 1. This arterial phase only study again reveals a patent aortic EVAR without evidence of intra stent stenosis and with maximum external diameter of the eyak aortic sac being 4.4 cm on the present stud y. Is not possible to accurately exclude and EVAR endoleak on this study as this was apparently not performed with aortic EVAR protocol. There is no pre contrast and there is no delayed post-contrast sequence. If clinically indicated this study can be repeated using aortic EVAR protocol. 2. There is no evidence of significant intra stent stenosis nor hemodynamically significant stenosis at the distal (iliac artery level) anastomosis. 3. Other findings as above. RADIATION DOSE DELIVERED: 74.97mGy.cm Total DLP DATA REPOSITORY: All CT scans at this facility are submitted to the National Radiology Data Registry (NRDR) Dose Index Registry (DIR) with the [employer] (ACR). RADIATION OPTIMIZATION: All CT scans at this facility use at least one of these dose optimization te chniques: automated exposure control; mA and/or kV adjustment per patient size (includes targeted exa ms where dose is matched to clinical indication); or iterative reconstruction.
== END 2024-07-27 01:10 ==
LOC: DI 00:51
PROVIDERS: PCP Nurse Practitioner Family; Visit Provider Surgery Vascular Surgery
DX: I71.43 Infrarenal abdominal aortic aneurysm, without rupture (principal)
CPT/HCPCS: 74174; 82565; J3490

== ENCOUNTER → 2024-08-01 13:51 | Outpatient (BNVA) | payer MEDICARE, MEDICAID, SELFPAY | PROVIDERS: PCP Nurse Practitioner Family; Referring Provider Nurse Practitioner Family; Visit Provider Podiatrist ==

== ENCOUNTER 2024-11-13 15:35 | Outpatient (REF) | payer MEDICARE, MEDICAID, SELFPAY ==
[2024-11-13 21:12] LABS: Abs Immature Grans 0.01 10^3/uL (0.0-0.06); HCT 42.4 % (36.0-46.0); HGB 14.2 g/dL (11.2-15.7); Immature Grans % 0.2 %; MCH 31.7 pg (27.0-33.0); MCHC 33.5 % (32.0-36.0); MCV 95 fL (80-95); MPV 10.5 fL (8.0-11.0); Platelet Count 161 10^3/uL (130-400); RBC 4.48 10^6/uL (3.93-5.22); RDW 15.1 % (11.7-14.6); RDW-SD 52.2 fL; WBC 5.77 10^3/uL (4.4-10.8)
[2024-11-13 21:15] LABS: ESR < 1 mm/hr (0-30)
[2024-11-13 21:35] LABS: ALT 19 U/L (14-59); AST 20 U/L (15-37); Albumin 4.0 g/dL (3.4-5.0); Alkaline Phosphatase 109 U/L (46-116); Anion Gap 6.8 mmol/L (3-11); BUN 13 mg/dL (7-18); Bilirubin, Total 0.7 mg/dL (0.2-1.0); CO2 32.2 mmol/L (21.0-32.0); Calcium 8.7 mg/dL (8.5-10.1); Chloride 102 mmol/L (98-107); Estimated GFR 87.36 (mL/min/1.73m2); Glucose 78 mg/dL (74-106); Potassium 4.0 mmol/L (3.5-5.1); Sodium 141 mmol/L (136-145); TSH (W/Ref FT4) 3.08 uIU/mL (0.36-3.74); Total Protein 6.0 g/dL (6.4-8.2)
[2024-11-13 21:36] LABS: C-Reactive Protein < 0.50 mg/dL (<or=0.5)
[2024-11-15 10:33] LABS: Lyme Ab w Rflx to Lyme Confirm Negative (Negative)
[2024-11-16 21:29] LABS: B. miyamotoi PCR Negative (Negative); Babesia divergens/MO-1 Negative (Negative); Ehrlichia muris eauclairensis Negative (Negative)
== END 2024-11-13 15:36 | disposition home or self-care (01) ==
LOC: LBN 15:35
PROVIDERS: PCP Nurse Practitioner Family; Visit Provider Nurse Practitioner Family
DX: E03.9 Hypothyroidism, unspecified (principal); M25.59 Pain in other specified joint
CPT/HCPCS: 80053; 85652; 87798; 84443; 85025; 86140; 86618

== ENCOUNTER 2025-03-12 12:37 | Outpatient (CLI) | payer MEDICARE, MEDICAID, SELFPAY ==
--- NOTE | 2025-03-12 06:00 | DI.RAD_ITS ---
Exam(s) XR PAIN CLINIC LUMBAR SP 2V EXAM: XR PAIN CLINIC LUMBAR SP 2V CLINICAL HISTORY: Dx: Lumbar Radiculopathy TECHNIQUE: 2D and realtime digital imaging was performed. CONTRAST MATERIAL: Refer to procedure report. COMPARISON: No exams were available for comparison FINDINGS: Fluoroscopy was provided for Dr. Hamilton during the performance of a lumbar epidural steroid injection. Please refer to the procedure report for complete details. Ka,r=2.8 mGy IMPRESSION: RADIATION DOSE DELIVERED: 0.0 0.0 0
[2025-03-12 12:40] VITALS: BP 153/88; PULSE 67; RESP 18; TEMP 36; O2SAT 98
--- NOTE | 2025-03-12 13:32 | PDOC.PAIN ---
Date of service: 03/12/25 Time of Service: 13:54 Pain Managment Procedure Note Procedure Note Procedure Note: Lumbar Interlaminar Epidural Steroid Injection ? Location: L4-5 ? Pre-procedure Diagnosis: M54.16- Radiculopathy, LUMBAR region ? Post-procedure Diagnosis:? The same as above ? Sedation:?? None ? Medication: Depo-Medrol 80 mg, Omnipaque 1 mL ? Estimated blood loss:? less than 2 ml ? Surgeon:? Lio Hamilton MD COMMENT: Patient with lumbar spondylosis multiple levels of degenerative changes and foraminal narrowing ? Procedure Detail:? The procedure and potential risks were explained to the patient and informed written consent was obtained. The patient was escorted to the procedure room and placed in the prone position. Pillows were utilized for proper positioning and comfort. Time out was performed in the procedure room with nursing staff confirming the patient's identity, procedure to be performed, allergies, and any blood thinning or anti-platelet medications.? The patient's low back was prepped with ChloraPrep and draped in a sterile fashion. Sterile technique was maintained throughout the procedure.? Sterile gloves were used, a face mask was worn, and new single dose vials of all medications were used with the top being swabbed with alcohol and given time to dry prior to withdrawal of medication. Lidocane 1% was used to anesthetize the skin.Using a 25-gauge 1.5 inch needle, 1% lidocaine was instilled into the superficial soft tissue overlying the targeted area to provide local anesthesia. With fluoroscopic guidance, a 17 -gauge Tuohy needle was advanced toward the interlaminar space of L4-5. The needle was then advance through the ligamentum flavum and into the posterior epidural space using the loss of resistance technique. Correct needle placement was confirmed through review of the AP and lateral fluoroscopic views. A 19-gauge arrow catheter was threaded cephalad and to the Left Following negative aspiration, 1 ml of Omnipaque 240 contrast was injected which confirmed good flow throughout the epidural space and no evidence of vascular flow or flow into adjacent compartments. Next, following negative aspiration, 1 ml of normal saline and 80mg of Depo-Medrol was injected. The needle was gently removed. The patient tolerated the procedure well and was transported to the recovery area for observation and discharge instructions. Permanent images saved and recorded. PAIN PRE-PROCEDURE 12/29 POST-PROCEDURE Plan:? Follow up prn. COMMENT: Could repeat if she gets long-lasting relief Coding Conscious Sedation used for procedure: No CPT Codes: Inj Spine L/S w/Imaging - [id number] ([id number] ~G) Additional Codes: Date of Service () Diagnoses: M54.16- Radiculopathy, LUMBAR region
[2025-03-12 13:35] VITALS: PULSE 74; O2SAT 92
[2025-03-12 13:40] VITALS: PULSE 72; O2SAT 95
[2025-03-12] MEDS: Epidural Tray 1 EACH MC (13:54)
[2025-03-12] MEDS: Omnipaque 240 MG/ML 50 ML BTL IJ (13:55)
[2025-03-12] MEDS: methylPREDNISolone ACETATE 40 MG/ML VIAL IJ (13:55)
== END 2025-03-12 12:38 | disposition home or self-care (01) ==
LOC: PC 12:37
PROVIDERS: PCP Nurse Practitioner Family; Visit Provider Anesthesiology Pain Medicine
DX: M54.50 Low back pain, unspecified (principal); M54.16 Radiculopathy, lumbar region
CPT/HCPCS: 62323; 72100; J1010; Q9967